=== PATIENT | male | born 1945 | race Two or more races ===

== ENCOUNTER 2023-10-14 11:24 | Inpatient (IN) | payer OTHER ==
[~2023-10-14] VITALS: Ht 165.1 cm; Wt 77.5 kg
[2023-10-14 12:27] LABS: Urine Bacteria NONE SEEN /hpf (None Seen); Urine Blood 1+ /uL (Negative); Urine Clarity HAZY (Clear); Urine Color Yellow (Yellow); Urine Protein, UAD 1+ (Negative); Urine Specific Gravity 1.024 (1.001-1.035); Urine Urobilinogen Normal (Negative); Urine WBC 229 /hpf (0 - 3); Urine WBC Clumps PRESENT /hpf (None Seen); Urine pH 5.5 (5.0-8.0)
[2023-10-14] MEDS: SODIUM CHLORIDE 0.9% 1,000 ML IV ONE (12:28)
[2023-10-14 12:45] LABS: Hematocrit 44.1 % (41.0-53.0); Hemoglobin 14.8 g/dL (13.5-17.5); Mean Corpuscular Hemoglobin 30.7 pg (28.0-32.0); Mean Corpuscular Hgb Conc. 33.5 g/dL (32.0-36.0); Mean Corpuscular Volume 91.8 fL (80.0-100.0); Red Cell Distribution Width 16.8 % (11.8-14.3); White Blood Cell 2.8 10^3/uL (4.4-10.8)
[2023-10-14 12:54] LABS: Basophils % (manual) 0 (0.0-2.0); Blast Cells 0; Metamyelocytes % 0; Myelocytes % 0; Promyelocytes % 0; Reactive Lymphocytes 0
[2023-10-14 13:03] LABS: Alanine Aminotransferase 28 U/L (7-40); Albumin 3.8 g/dL (3.2-4.8); Alkaline Phosphatase 102 U/L (46-116); Anion Gap 4 (5-15); Aspartate Aminotransferase 27 U/L (13-40); Blood Urea Nitrogen 29 mg/dL (9-23); Calcium 8.9 mg/dL (8.7-10.4); Carbon Dioxide 30 mmol/L (20-30); Chloride 99 mmol/L (98-107); Glucose 352 mg/dL (74-106); Magnesium 1.9 mg/dL (1.6-2.6); Potassium 4.1 mmol/L (3.5-5.1); Sodium 133 mmol/L (136-145)
[2023-10-14 13:04] LABS: Bilirubin, Total 0.7 mg/dL (0.2-1.0); Total Protein 5.3 g/dL (5.7-8.2)
[2023-10-14 13:11] LABS: INR 1.14 (0.9-1.15); Partial Thromboplastin Time 27.1 SEC (24.5-34.5); Prothrombin Time 11.9 sec (9.3-11.8)
[2023-10-14] MEDS: ENOXAPARIN SOD 100 MG/1 ML SYRINGE SC ONE (13:53)
[2023-10-14 14:10] LABS: Band Neutrophils % (manual) 2; Eosinophils % (manual) 5 (0-7); Lymphocytes % (manual) 51 (10.0-50.0); Monocytes % (manual) 35 (0-12); Platelet Estimate Adequate
[2023-10-14] MEDS: PIPERACILLIN-TAZO 4.5GM 100 ML IV ONE (15:34)
[2023-10-14] MEDS ORDERED: ACETAMINOPHEN 325 MG TAB PO PRN (16:00)
[2023-10-14] MEDS ORDERED: MORPHINE SULFATE 4 MG/ML SYR/VIAL IV PRN (16:00)
[2023-10-14] MEDS ORDERED: ASPirin 325 MG TAB PO SCH (16:00)
[2023-10-14] MEDS ORDERED: ONDANSETRON HCL 4 MG/2 ML VIAL IV PRN (16:00)
[2023-10-14] MEDS ORDERED: NITROGLYCERIN 0.4 MG SL TAB SL PRN (16:00)
[2023-10-14] MEDS: SODIUM CHLORIDE 0.9% 1,000 ML IV SCH (16:15)
[2023-10-14 17:01] LABS: INR 1.23 (0.9-1.15); Prothrombin Time 12.7 sec (9.3-11.8)
[2023-10-14 17:09] LABS: Folate (Folic Acid) 12.17 ng/mL (>5.38)
[2023-10-14 17:37] LABS: Amphetamine Screen, Urine Neg (NEGATIVE); Barbiturate Scree,Urine Neg (NEGATIVE); Benzodiazephine Screen, Urine Neg (NEGATIVE); Cannabinoid Screen, Urine Neg (NEGATIVE); Cocaine Screen, Urine Neg (NEGATIVE); Opiate Scree,Urine Neg (NEGATIVE); Phencyclidine Screen, Urine Neg (NEGATIVE)
[2023-10-14] MEDS: TAMSULOSIN HYDROCHLORIDE 0.4 MG CAP PO SCH (18:00)
[2023-10-14 19:14] VITALS: PULSE 78; RESP 18; O2SAT 96
[2023-10-14 19:30] VITALS: PULSE 99; RESP 23; O2SAT 97
[2023-10-14 21:56] VITALS: PULSE 93
[2023-10-14 22:32] VITALS: PULSE 90; RESP 18; O2SAT 95
[2023-10-14] MEDS: ATORVASTATIN 20 MG TAB PO SCH (22:50)
[2023-10-14] MEDS: METOPROLOL TARTRATE 25 MG TAB PO SCH (22:51)
[2023-10-14] MEDS: ENOXAPARIN SOD 80 MG/0.8ML SYRINGE SC SCH (22:52)
[2023-10-14 23:21] VITALS: BP 123/76; PULSE 90; RESP 18; TEMP 98.2; O2SAT 95
[2023-10-15] VITALS (7 sets, daily range): BP systolic 109–153; BP diastolic 64–77; PULSE 85–101; RESP 16–18; TEMP 97.8–98.6; O2SAT 93–96
[2023-10-15] MEDS ORDERED: METF-370 PO (03:38)
[2023-10-15] MEDS ORDERED: FINA5TAB4 PO (03:38)
[2023-10-15] MEDS ORDERED: GLIP5TAB12 PO (03:38)
[2023-10-15] MEDS ORDERED: FURO40TA4 PO (03:38)
[2023-10-15] MEDS ORDERED: LOVA40TA72 PO (03:38)
[2023-10-15] MEDS ORDERED: LOSA25TA15 PO (03:38)
[2023-10-15] MEDS ORDERED: DIGO125T11 PO (03:38)
[2023-10-15] MEDS ORDERED: TAMS0.4C36 PO (03:38)
[2023-10-15] MEDS ORDERED: WARF-111 PO (03:38)
[2023-10-15] MEDS ORDERED: CARV3.1240 PO (03:38)
[2023-10-15] MEDS ORDERED: PNEUMOCOCCAL VACC POLYS 25 MCG/0.5 ML VIAL IM ONE (03:45)
[2023-10-15 07:01] LABS: Triglycerides 180 mg/dL (< 150)
[2023-10-15 07:02] LABS: LDL Cholesterol 95 mg/dL (< 100)
[2023-10-15 07:03] LABS: Cholesterol 155 mg/dL (< 200); HDL Cholesterol 38 mg/dL (40-59)
[2023-10-15] MEDS: ASPirin 81 mg TAB PO SCH (11:11)
[2023-10-15] MEDS: DOCUSATE SOD 100 MG CAP PO SCH (11:12)
[2023-10-15] MEDS ORDERED: DEXTROSE (50%) 50ML SYRG IV PRN (13:00)
[2023-10-15] MEDS: cefTRIAXone 1GM/50ML D5W 50 ML IV ONE (14:00)
[2023-10-15] MEDS: ACCU-CHEK COMFORT CURVE STRIP VI SCH (17:26)
[2023-10-15] MEDS: InsuLIN REG 1unit/0.01ml Soln (100units/ml) SC SCH (17:33)
[2023-10-15] MEDS: WARFARIN SODIUM 1 MG TAB PO ONE (17:42)
[2023-10-15] MEDS: INSULIN LANTUS (GLARGINE) 1 /0.01ml (100units/ml) SC SCH (22:00)
[2023-10-16 05:12] VITALS: BP 119/68; PULSE 79; RESP 17; TEMP 97.6; O2SAT 98
[2023-10-16 08:00] VITALS: BP 130/68; PULSE 86; PULSE 92; RESP 16; TEMP 97.8; O2SAT 95
[2023-10-16] MEDS: cefTRIAXone 1GM/50ML D5W 50 ML IV SCH (09:10)
[2023-10-16 12:00] VITALS: BP 119/69; PULSE 89; RESP 16; TEMP 97.9; O2SAT 95
[2023-10-16 16:00] VITALS: BP 130/75; PULSE 91; RESP 16; TEMP 98.5; O2SAT 97
[2023-10-16 17:02] LABS: INR 1.14 (0.9-1.15); Prothrombin Time 11.9 sec (9.3-11.8)
[2023-10-16] MEDS: WARFARIN SODIUM 5 MG TAB PO ONE (18:52)
[2023-10-16 20:00] VITALS: PULSE 101; PULSE 92; RESP 18; O2SAT 97
[2023-10-16 22:00] VITALS: BP 145/81; PULSE 92; RESP 18; TEMP 97.6; O2SAT 97
[2023-10-17 05:17] VITALS: BP 121/65; PULSE 89; RESP 17; TEMP 97.7; O2SAT 98
[2023-10-17 06:36] LABS: INR 1.19 (0.9-1.15); Prothrombin Time 12.4 sec (9.3-11.8)
[2023-10-17 08:00] VITALS: PULSE 76; PULSE 82; RESP 14; O2SAT 98
[2023-10-17 09:00] VITALS: BP 128/68; PULSE 76; RESP 14; TEMP 98.6; O2SAT 96
[2023-10-17] MEDS ORDERED: CIPR-173 PO (10:34)
[2023-10-17] MEDS ORDERED: FLUC150T38 PO (10:34)
[2023-10-17] MEDS: FLUCONAZOLE 100 MG TAB PO ONE (10:56)
[2023-10-17 13:00] VITALS: BP 144/77; PULSE 69; RESP 12; TEMP 98.3; O2SAT 98
[2023-10-17 13:19] VITALS: BP 144/77; PULSE 69; RESP 12; TEMP 98.3; O2SAT 98
[2023-10-17] MEDS: WARFARIN SODIUM 5 MG TAB PO ONE (13:43)
[2023-10-18] MEDS ORDERED: FLUCONAZOLE 100 MG TAB PO SCH (10:00)
== END 2023-10-17 15:03 | disposition home or self-care (01) | DRG 637 ==
LOC: ER 11:24 → TELE 16:07 → TELE-EAST 21:38
PROVIDERS: ADMIT Nurse Practitioner Family; ATTEND Family Medicine
DX: E11.10 Type 2 diabetes mellitus with ketoacidosis without coma (principal); G93.41 Metabolic encephalopathy; N39.0 Urinary tract infection, site not specified; E86.0 Dehydration; R07.89 Other chest pain; N20.0 Calculus of kidney; N28.1 Cyst of kidney, acquired; E78.00 Pure hypercholesterolemia, unspecified; R22.2 Localized swelling, mass and lump, trunk; I11.9 Hypertensive heart disease without heart failure; D72.819 Decreased white blood cell count, unspecified; N40.0 Benign prostatic hyperplasia without lower urinary tract symptoms; B37.9 Candidiasis, unspecified; I25.10 Atherosclerotic heart disease of native coronary artery without angina pectoris; K57.90 Diverticulosis of intestine, part unspecified, without perforation or abscess without bleeding; Z95.3 Presence of xenogenic heart valve; Z79.899 Other long term (current) drug therapy; Z86.73 Personal history of transient ischemic attack (TIA), and cerebral infarction without residual deficits; Z79.01 Long term (current) use of anticoagulants; Z95.2 Presence of prosthetic heart valve
CPT/HCPCS: 36415; 70450; 71045; 74176; 80053; 80061; 80307; 80320; 81001; 82010; 82607; 82746; 82962; 83036; 83605; 83735; 83880; 84484; 85007; 85027; 85610; 85730; 87040; 87086; 87088; 93306; G0378; J1815; J2543

== ENCOUNTER 2023-11-22 18:11 | Inpatient (IN) | payer OTHER ==
[~2023-11-22] VITALS: Ht 167.6 cm; Wt 66.9 kg
[~2023-11-22 18:11] MED LIST: CARV3.1240 PO; CIPR-173 PO; DIGO125T11 PO; FINA5TAB4 PO; FLUC150T38 PO; FURO40TA4 PO; GLIP5TAB21 PO; LOSA-533 PO; LOVA40TA72 PO; METF-370 PO; TAMS0.4C36 PO; WARF-111 PO
[2023-11-22 18:47] LABS: Hematocrit 45.7 % (41.0-53.0); Mean Corpuscular Hemoglobin 29.2 pg (28.0-32.0); Mean Corpuscular Hgb Conc. 32.9 g/dL (32.0-36.0); Mean Corpuscular Volume 88.9 fL (80.0-100.0); Red Blood Cells 5.14 10^6/uL (4.5-5.90); Red Cell Distribution Width 15.6 % (11.8-14.3); White Blood Cell 2.1 10^3/uL (4.4-10.8)
[2023-11-22 18:51] LABS: Basophils % (manual) 0 (0.0-2.0); Blast Cells 0; Metamyelocytes % 0; Myelocytes % 0; Promyelocytes % 0; Reactive Lymphocytes 0
[2023-11-22] MEDS ORDERED: cefTRIAXone SOD 1,000 MG VL IM ONE (19:00)
[2023-11-22 19:10] LABS: INR 1.73 (0.9-1.15); Partial Thromboplastin Time 25.9 SEC (24.5-34.5); Prothrombin Time 17.5 sec (9.3-11.8)
[2023-11-22 19:30] VITALS: PULSE 150; RESP 26; O2SAT 93
[2023-11-22 19:34] LABS: Band Neutrophils % (manual) 9; Lymphocytes % (manual) 21 (10.0-50.0); Monocytes % (manual) 13 (0-12)
[2023-11-22 19:35] LABS: Anisocytosis Slight; Eosinophils % (manual) 1 (0-7); Platelet Estimate Adequate
[2023-11-22] MEDS: dilTIAZem 25 MG/5 ML VIAL IV ONE (19:37)
[2023-11-22] MEDS: InsuLIN REG 1unit/0.01ml Soln (100units/ml) IV ONE (19:42)
[2023-11-22] MEDS: SODIUM CHLORIDE 0.9% 2,000 ML IV ONE (19:46)
[2023-11-22] MEDS: SODIUM CHLORIDE 0.9% 1,000 ML IV ONE (19:46)
[2023-11-22] MEDS: cefTRIAXone 1GM/50ML D5W 50 ML IV ONE (19:52)
[2023-11-22 20:05] LABS: Lactic Acid w/Reflex 2.5 mmol/L (0.4-2.0)
[2023-11-22 20:12] LABS: Alanine Aminotransferase 20 U/L (7-40); Albumin 2.8 g/dL (3.2-4.8); Alkaline Phosphatase 82 U/L (46-116); Anion Gap 10 (5-15); Aspartate Aminotransferase 23 U/L (13-40); BUN/Creatinine Ratio 14.8 (10.0-20.0); Bilirubin, Total 1.1 mg/dL (0.2-1.0); Blood Urea Nitrogen 17 mg/dL (9-23); Calcium 8.5 mg/dL (8.5-10.1); Carbon Dioxide 25 mmol/L (20-30); Chloride 96 mmol/L (98-107); Potassium 3.4 mmol/L (3.5-5.1); Sodium 131 mmol/L (136-145); Total Protein 4.5 g/dL (5.7-8.2)
[2023-11-22 21:03] LABS: Glucose 548 mg/dL (74-106)
[2023-11-22] MEDS: levoFLOXacin 500MG 100 ML IV ONE (21:04)
[2023-11-22] MEDS ORDERED: ACETAMINOPHEN 325 MG TAB PO PRN (21:15)
[2023-11-22] MEDS ORDERED: MORPHINE SULFATE INJ 2 MG/ml SYRG IV PRN (21:15)
[2023-11-22] MEDS ORDERED: NITROGLYCERIN 0.4 MG SL TAB SL PRN (21:15)
[2023-11-22] MEDS ORDERED: ONDANSETRON HCL 4 MG/2 ML VIAL IV PRN (21:15)
[2023-11-22 21:50] LABS: Magnesium 1.7 mg/dL (1.6-2.6)
[2023-11-22 22:06] LABS: Urine Bacteria FEW /hpf (None Seen); Urine Blood TRACE /uL (Negative); Urine Budding Yeast LOADED /hpf (None Seen); Urine Clarity HAZY (Clear); Urine Color Colorless (Yellow); Urine Mucus FEW (None Seen); Urine Protein, UAD Negative (Negative); Urine Specific Gravity 1.006 (1.001-1.035); Urine Urobilinogen Normal (Negative); Urine WBC 60 /hpf (0 - 3); Urine WBC Clumps PRESENT /hpf (None Seen); Urine pH 5.5 (5.0-8.0)
[2023-11-22] MEDS: CARVEDILOL 12.5 MG TAB PO SCH (22:13)
[2023-11-22] MEDS: ATORVASTATIN 20 MG TAB PO SCH (22:13)
[2023-11-22] MEDS: SODIUM CHLORIDE 0.9% 500 ML IV ONE (22:45)
[2023-11-22] MEDS: IOHEXOL 350 MG/ML 100ML IJ ONE (23:20)
[2023-11-23] LABS: INR 1.84 (0.9-1.15); Partial Thromboplastin Time 38.4 SEC (24.5-34.5); Prothrombin Time 18.6 sec (9.3-11.8)
[2023-11-23] MEDS: ACCU-CHEK COMFORT CURVE STRIP VI SCH (00:18)
[2023-11-23] MEDS: InsuLIN REG 1unit/0.01ml Soln (100units/ml) SC SCH (00:29)
[2023-11-23] MEDS: HEPARIN SODIUM (PORCINE) 5000 UNITS/ML 1ML VIAL IV ONE (00:32)
[2023-11-23] MEDS: HEPARIN DRIP/D5W 100UNITS/ML 250 ML IV SCH ×2 (00:40→16:20)
[2023-11-23] MEDS: cefTRIAXone 1GM/50ML D5W 50 ML IV SCH (01:55)
[2023-11-23 05:14] LABS: Hematocrit 37.9 % (41.0-53.0); Hemoglobin 12.8 g/dL (13.5-17.5); Mean Corpuscular Hemoglobin 29.7 pg (28.0-32.0); Mean Corpuscular Hgb Conc. 33.9 g/dL (32.0-36.0); Mean Corpuscular Volume 87.6 fL (80.0-100.0); Red Blood Cells 4.32 10^6/uL (4.5-5.90); Red Cell Distribution Width 15.2 % (11.8-14.3); White Blood Cell 7.8 10^3/uL (4.4-10.8)
[2023-11-23 05:30] LABS: Basophils % (manual) 0 (0.0-2.0); Blast Cells 0; Eosinophils % (manual) 0 (0-7); Metamyelocytes % 0; Myelocytes % 0; Promyelocytes % 0; Reactive Lymphocytes 0
[2023-11-23 05:34] LABS: Alanine Aminotransferase 20 U/L (7-40); Albumin 2.4 g/dL (3.2-4.8); Alkaline Phosphatase 63 U/L (46-116); Anion Gap 8 (5-15); Aspartate Aminotransferase 21 U/L (13-40); BUN/Creatinine Ratio 16.7 (10.0-20.0); Blood Urea Nitrogen 17 mg/dL (9-23); Carbon Dioxide 27 mmol/L (20-30); Chloride 102 mmol/L (98-107); Potassium 2.9 mmol/L (3.5-5.1); Sodium 137 mmol/L (136-145)
[2023-11-23 05:35] LABS: Bilirubin, Total 0.5 mg/dL (0.2-1.0); Total Protein 3.9 g/dL (5.7-8.2)
[2023-11-23 05:52] LABS: Glucose 207 mg/dL (74-106)
[2023-11-23 07:44] LABS: INR 1.9 (0.9-1.15); Prothrombin Time 19.1 sec (9.3-11.8)
[2023-11-23 07:54] LABS: Partial Thromboplastin Time 87.1 SEC (24.5-34.5)
[2023-11-23 08:46] LABS: Band Neutrophils % (manual) 2; Lymphocytes % (manual) 31 (10.0-50.0); Monocytes % (manual) 13 (0-12)
[2023-11-23 08:47] LABS: Platelet Estimate Adequate; RBC Morphology Normal
[2023-11-23] MEDS ORDERED: levoFLOXacin 500MG 100 ML IV SCH (10:00)
[2023-11-23] MEDS ORDERED: ENOXAPARIN SOD 40 MG/0.4 ML SYRINGE SC SCH (10:00)
[2023-11-23] MEDS: LOSARTAN POTASSIUM 25 MG TAB PO SCH (10:48)
[2023-11-23] MEDS: DIGOXIN 0.125 MG TAB PO SCH (10:48)
[2023-11-23] MEDS: FUROSEMIDE 20 MG TAB PO SCH (10:49)
[2023-11-23] MEDS: SODIUM CHLORIDE 0.9% 250 ML IV ONE ×2 (13:38→14:00)
[2023-11-23] MEDS: POTASSIUM CHL 20MEQ/100ML 100 ML IV SCH (14:00)
[2023-11-23] MEDS: NOREPINEPHRINE 8 MG/250ML KIT 250 ML IV SCH (14:44)
[2023-11-23 14:46] LABS: INR 1.99 (0.9-1.15)
[2023-11-23 14:56] LABS: Partial Thromboplastin Time 119.3 SEC (24.5-34.5)
[2023-11-23] MEDS: cefTRIAXone 1GM/50ML D5W 50 ML IV ONE (15:15)
[2023-11-23] MEDS: TAMSULOSIN HYDROCHLORIDE 0.4 MG CAP PO SCH (18:25)
[2023-11-23 22:44] LABS: INR 1.69 (0.9-1.15); Partial Thromboplastin Time 49.3 SEC (24.5-34.5); Prothrombin Time 17.1 sec (9.3-11.8)
[2023-11-23 23:00] VITALS: PULSE 80; RESP 26; O2SAT 94
[2023-11-24 06:01] LABS: Hematocrit 35.8 % (41.0-53.0); Hemoglobin 12.2 g/dL (13.5-17.5); Mean Corpuscular Hemoglobin 29.7 pg (28.0-32.0); Mean Corpuscular Volume 87.3 fL (80.0-100.0); Red Cell Distribution Width 15.4 % (11.8-14.3); White Blood Cell 8.9 10^3/uL (4.4-10.8)
[2023-11-24 06:05] LABS: Basophils % (manual) 0 (0.0-2.0); Blast Cells 0; Metamyelocytes % 0; Myelocytes % 0; Promyelocytes % 0; Reactive Lymphocytes 0
[2023-11-24 06:10] LABS: Alanine Aminotransferase 19 U/L (7-40); Albumin 2.3 g/dL (3.2-4.8); Alkaline Phosphatase 63 U/L (46-116); Anion Gap 6 (5-15); Aspartate Aminotransferase 24 U/L (13-40); BUN/Creatinine Ratio 16.5 (10.0-20.0); Bilirubin, Total 0.5 mg/dL (0.2-1.0); Blood Urea Nitrogen 17 mg/dL (9-23); Calcium 8.2 mg/dL (8.7-10.4); Carbon Dioxide 26 mmol/L (20-30); Chloride 101 mmol/L (98-107); Glucose 183 mg/dL (74-106); Sodium 133 mmol/L (136-145); Total Protein 3.7 g/dL (5.7-8.2)
[2023-11-24 06:34] LABS: Band Neutrophils % (manual) 17; Eosinophils % (manual) 3 (0-7); Lymphocytes % (manual) 22 (10.0-50.0); Monocytes % (manual) 19 (0-12); Platelet Estimate Adequate
[2023-11-24 07:30] VITALS: PULSE 86; RESP 25; O2SAT 97
[2023-11-24 07:46] LABS: INR 1.52 (0.9-1.15); Partial Thromboplastin Time 67.3 SEC (24.5-34.5); Prothrombin Time 15.5 sec (9.3-11.8)
[2023-11-24] MEDS: HEPARIN DRIP/D5W 100UNITS/ML 250 ML IV SCH (08:30)
[2023-11-24] MEDS: cefTRIAXone 1GM/50ML D5W 50 ML IV SCH (08:50)
[2023-11-24 12:18] LABS: INR 1.45 (0.9-1.15); Partial Thromboplastin Time 64.4 SEC (24.5-34.5); Prothrombin Time 14.9 sec (9.3-11.8)
[2023-11-24] MEDS: POTASSIUM CHL 20MEQ/100ML 100 ML IV SCH (15:14)
[2023-11-24] MEDS ORDERED: CARV12.544 PO (16:30)
[2023-11-24] MEDS ORDERED: PANT40TA2 PO (16:33)
[2023-11-24] MEDS ORDERED: AMLO1TAB22 PO (16:33)
[2023-11-24] MEDS ORDERED: NALO4SPR3 NAS (16:33)
[2023-11-24] MEDS ORDERED: TRAM50TA2 PO (16:33)
[2023-11-24] MEDS ORDERED: POTA-215 PO (16:33)
[2023-11-24 18:48] LABS: INR 1.37 (0.9-1.15); Partial Thromboplastin Time 62.7 SEC (24.5-34.5); Prothrombin Time 14.1 sec (9.3-11.8)
[2023-11-24 19:30] VITALS: PULSE 78; RESP 27; O2SAT 96
[2023-11-24] MEDS: INSULIN LANTUS (GLARGINE) 1 /0.01ml (100units/ml) SC SCH (22:57)
[2023-11-25 00:47] LABS: INR 1.37 (0.9-1.15); Partial Thromboplastin Time 38.5 SEC (24.5-34.5); Prothrombin Time 14.1 sec (9.3-11.8)
[2023-11-25 05:21] LABS: Basophils # (auto) 0 10 ^3/uL (0-0.2); Basophils % (auto) 0.6 % (0.0-2.0); Chloride 103 mmol/L (98-107); Eosinophils # (auto) 0.1 10 ^3/uL (0-0.8); Eosinophils % (auto) 1.7 % (0.0-7.0); Hematocrit 34.6 % (41.0-53.0); Hemoglobin 11.5 g/dL (13.5-17.5); Lymphocytes # (auto) 1.6 10 ^3/uL (0.4-5.4); Lymphocytes % (auto) 22.8 % (10.0-50.0); Mean Corpuscular Hemoglobin 29.2 pg (28.0-32.0); Mean Corpuscular Hgb Conc. 33.2 g/dL (32.0-36.0); Mean Corpuscular Volume 87.9 fL (80.0-100.0); Monocytes # (auto) 0.7 10 ^3/uL (0-1.3); Monocytes % (auto) 10.2 % (0.0-12.0); Neutrophils # (auto) 4.6 10 ^3/uL (1.6-8.6); Neutrophils % (auto) 64.7 % (37.0-80.0); Nucleated Red Blood Cells % 0.1 %; Potassium 3.4 mmol/L (3.5-5.1); Red Blood Cells 3.94 10^6/uL (4.5-5.90); Red Cell Distribution Width 15.7 % (11.8-14.3); Sodium 135 mmol/L (136-145); White Blood Cell 7.1 10^3/uL (4.4-10.8)
[2023-11-25 05:22] LABS: Anion Gap 5 (5-15); Calcium 8.1 mg/dL (8.5-10.1); Carbon Dioxide 27 mmol/L (20-30)
[2023-11-25 05:27] LABS: BUN/Creatinine Ratio 21.3 (10.0-20.0); Blood Urea Nitrogen 20 mg/dL (9-23); Glucose 116 mg/dL (74-106)
[2023-11-25 05:44] LABS: INR 1.44 (0.9-1.15); Prothrombin Time 14.8 sec (9.3-11.8)
[2023-11-25 07:30] VITALS: PULSE 94; RESP 26; O2SAT 96
[2023-11-25 10:57] LABS: INR 1.45 (0.9-1.15); Prothrombin Time 14.9 sec (9.3-11.8)
[2023-11-25 11:04] LABS: Partial Thromboplastin Time 82.8 SEC (24.5-34.5)
[2023-11-25] MEDS: HEPARIN DRIP/D5W 100UNITS/ML 250 ML IV SCH ×2 (11:05→19:37)
[2023-11-25] MEDS: POTASSIUM CHL 20MEQ/100ML 100 ML IV ONE (15:56)
[2023-11-25 17:21] LABS: INR 1.34 (0.9-1.15); Partial Thromboplastin Time 49.5 SEC (24.5-34.5); Prothrombin Time 13.8 sec (9.3-11.8)
[2023-11-25 19:45] VITALS: PULSE 93; RESP 29; O2SAT 96
[2023-11-25] MEDS: LINEZOLID 600MG/300ML 300 ML IV SCH (22:20)
[2023-11-26 00:54] LABS: INR 1.44 (0.9-1.15); Partial Thromboplastin Time 45.8 SEC (24.5-34.5); Prothrombin Time 14.8 sec (9.3-11.8)
[2023-11-26 07:26] LABS: Basophils # (auto) 0.1 10 ^3/uL (0-0.2); Basophils % (auto) 0.5 % (0.0-2.0); Eosinophils # (auto) 0.2 10 ^3/uL (0-0.8); Eosinophils % (auto) 1.5 % (0.0-7.0); Hematocrit 42.1 % (41.0-53.0); Hemoglobin 13.9 g/dL (13.5-17.5); Lymphocytes # (auto) 2.2 10 ^3/uL (0.4-5.4); Lymphocytes % (auto) 18.6 % (10.0-50.0); Mean Corpuscular Hemoglobin 29.2 pg (28.0-32.0); Mean Corpuscular Hgb Conc. 33.1 g/dL (32.0-36.0); Mean Corpuscular Volume 88.2 fL (80.0-100.0); Monocytes # (auto) 1.2 10 ^3/uL (0-1.3); Monocytes % (auto) 9.7 % (0.0-12.0); Neutrophils # (auto) 8.3 10 ^3/uL (1.6-8.6); Neutrophils % (auto) 69.7 % (37.0-80.0); Nucleated Red Blood Cells % 0.1 %; Red Blood Cells 4.78 10^6/uL (4.5-5.90); Red Cell Distribution Width 15.6 % (11.8-14.3); White Blood Cell 11.9 10^3/uL (4.4-10.8)
[2023-11-26 07:37] LABS: Anion Gap 3 (5-15); Carbon Dioxide 29 mmol/L (20-30); Chloride 101 mmol/L (98-107); Potassium 3.7 mmol/L (3.5-5.1); Sodium 133 mmol/L (136-145)
[2023-11-26 07:38] LABS: Calcium 8.5 mg/dL (8.5-10.1)
[2023-11-26 07:43] LABS: BUN/Creatinine Ratio 21.6 (10.0-20.0); Blood Urea Nitrogen 19 mg/dL (9-23); Glucose 135 mg/dL (74-106)
[2023-11-26 08:09] LABS: INR 1.39 (0.9-1.15); Prothrombin Time 14.3 sec (9.3-11.8)
[2023-11-26 08:15] LABS: Partial Thromboplastin Time 103.9 SEC (24.5-34.5)
[2023-11-26] MEDS ORDERED: HEPARIN DRIP/D5W 100UNITS/ML 250 ML IV SCH (09:00)
[2023-11-26] MEDS: LIDOCAINE 1% (LOCAL ANESTH.) PF 5ml SDV ID ONE (09:45)
[2023-11-26] MEDS: HEPARIN DRIP/D5W 100UNITS/ML 250 ML IV SCH ×2 (10:10→19:30)
[2023-11-26] MEDS: SODIUM CHLOR 0.9% PF (SALINE LOCK) 10ML VIAL/SYR IV SCH (10:54)
[2023-11-26 18:24] LABS: INR 1.41 (0.9-1.15); Prothrombin Time 14.5 sec (9.3-11.8)
[2023-11-26 18:27] LABS: Partial Thromboplastin Time > 139.0 SEC (24.5-34.5)
[2023-11-26 19:25] VITALS: PULSE 79; RESP 20; O2SAT 98
[2023-11-27] VITALS (26 sets, daily range): BP systolic 87–129; BP diastolic 50–65; PULSE 69–101; RESP 16–30; TEMP 98.8–98.9; O2SAT 91–98
[2023-11-27 07:03] LABS: Basophils # (auto) 0.1 10 ^3/uL (0-0.2); Basophils % (auto) 0.6 % (0.0-2.0); Eosinophils # (auto) 0.2 10 ^3/uL (0-0.8); Eosinophils % (auto) 1.7 % (0.0-7.0); Hematocrit 37.6 % (41.0-53.0); Hemoglobin 12.1 g/dL (13.5-17.5); Lymphocytes # (auto) 2.2 10 ^3/uL (0.4-5.4); Lymphocytes % (auto) 18.6 % (10.0-50.0); Mean Corpuscular Hgb Conc. 32.1 g/dL (32.0-36.0); Mean Corpuscular Volume 87.1 fL (80.0-100.0); Monocytes # (auto) 1.5 10 ^3/uL (0-1.3); Monocytes % (auto) 12.2 % (0.0-12.0); Neutrophils # (auto) 7.9 10 ^3/uL (1.6-8.6); Neutrophils % (auto) 66.9 % (37.0-80.0); Nucleated Red Blood Cells % 0.1 %; Red Blood Cells 4.31 10^6/uL (4.5-5.90); Red Cell Distribution Width 15.4 % (11.8-14.3); White Blood Cell 11.8 10^3/uL (4.4-10.8)
[2023-11-27 07:26] LABS: Chloride 99 mmol/L (98-107); Potassium 3.4 mmol/L (3.5-5.1); Sodium 132 mmol/L (136-145)
[2023-11-27 07:27] LABS: Anion Gap 4 (5-15); Carbon Dioxide 29 mmol/L (20-30)
[2023-11-27 07:28] LABS: Calcium 8.2 mg/dL (8.5-10.1)
[2023-11-27 07:32] LABS: BUN/Creatinine Ratio 20.2 (10.0-20.0); Blood Urea Nitrogen 19 mg/dL (9-23); Glucose 95 mg/dL (74-106)
[2023-11-27 07:57] LABS: INR 1.31 (0.9-1.15); Partial Thromboplastin Time 52.4 SEC (24.5-34.5); Prothrombin Time 13.5 sec (9.3-11.8)
[2023-11-27 14:03] LABS: INR 1.31 (0.9-1.15); Partial Thromboplastin Time 35.5 SEC (24.5-34.5); Prothrombin Time 13.5 sec (9.3-11.8)
[2023-11-27] MEDS: HEPARIN DRIP/D5W 100UNITS/ML 250 ML IV SCH (14:53)
[2023-11-27 21:17] LABS: Urine Bacteria NONE SEEN /hpf (None Seen); Urine Blood TRACE /uL (Negative); Urine Budding Yeast LOADED /hpf (None Seen); Urine Clarity CLOUDY (Clear); Urine Color Colorless (Yellow); Urine Protein, UAD Negative (Negative); Urine Specific Gravity 1.013 (1.001-1.035); Urine Urobilinogen Normal (Negative); Urine WBC 265 /hpf (0 - 3); Urine WBC Clumps PRESENT /hpf (None Seen)
[2023-11-27 21:51] LABS: INR 1.34 (0.9-1.15); Partial Thromboplastin Time 46.2 SEC (24.5-34.5); Prothrombin Time 13.8 sec (9.3-11.8)
[2023-11-28] VITALS (92 sets, daily range): BP systolic 77–134; BP diastolic 33–74; PULSE 62–94; RESP 12–33; TEMP 97.8–98.8; O2SAT 67–100
[2023-11-28 04:23] LABS: INR 1.31 (0.9-1.15); Prothrombin Time 13.5 sec (9.3-11.8)
[2023-11-28 04:24] LABS: Partial Thromboplastin Time 70.1 SEC (24.5-34.5)
[2023-11-28] MEDS: NOREPINEPHRINE 8 MG/250ML KIT 250 ML IV SCH (09:15)
[2023-11-28] MEDS: POTASSIUM CHL 20 Meq TABLET PO ONE (11:17)
[2023-11-28 13:17] LABS: INR 1.26 (0.9-1.15); Prothrombin Time 13.3 sec (9.3-11.8)
[2023-11-28 13:20] LABS: Partial Thromboplastin Time 96.2 SEC (24.5-34.5)
[2023-11-28] MEDS: HEPARIN DRIP/D5W 100UNITS/ML 250 ML IV SCH (15:42)
[2023-11-28 22:35] LABS: INR 1.3 (0.9-1.15); Partial Thromboplastin Time 49.8 SEC (24.5-34.5); Prothrombin Time 13.4 sec (9.3-11.8)
[2023-11-29] VITALS (98 sets, daily range): BP systolic 88–137; BP diastolic 46–80; PULSE 60–107; RESP 8–29; TEMP 97.8–98.7; O2SAT 83–100
[2023-11-29 04:00] LABS: Basophils # (auto) 0.1 10 ^3/uL (0-0.2); Basophils % (auto) 0.8 % (0.0-2.0); Eosinophils # (auto) 0.2 10 ^3/uL (0-0.8); Eosinophils % (auto) 1.5 % (0.0-7.0); Hematocrit 37.4 % (41.0-53.0); Hemoglobin 12.3 g/dL (13.5-17.5); Lymphocytes # (auto) 3.6 10 ^3/uL (0.4-5.4); Lymphocytes % (auto) 27.3 % (10.0-50.0); Mean Corpuscular Hemoglobin 28.5 pg (28.0-32.0); Mean Corpuscular Hgb Conc. 32.8 g/dL (32.0-36.0); Mean Corpuscular Volume 86.7 fL (80.0-100.0); Monocytes # (auto) 1.7 10 ^3/uL (0-1.3); Monocytes % (auto) 12.8 % (0.0-12.0); Neutrophils # (auto) 7.6 10 ^3/uL (1.6-8.6); Neutrophils % (auto) 57.6 % (37.0-80.0); Nucleated Red Blood Cells % 0.1 %; Red Blood Cells 4.32 10^6/uL (4.5-5.90); Red Cell Distribution Width 15.8 % (11.8-14.3); White Blood Cell 13.3 10^3/uL (4.4-10.8)
[2023-11-29 04:13] LABS: Chloride 98 mmol/L (98-107); Potassium 3.7 mmol/L (3.5-5.1); Sodium 133 mmol/L (136-145)
[2023-11-29 04:14] LABS: Anion Gap 5 (5-15); Calcium 8.2 mg/dL (8.7-10.4); Carbon Dioxide 30 mmol/L (20-30)
[2023-11-29 04:15] LABS: INR 1.36 (0.9-1.15); Partial Thromboplastin Time 59.2 SEC (24.5-34.5)
[2023-11-29 04:19] LABS: BUN/Creatinine Ratio 21.8 (10.0-20.0); Blood Urea Nitrogen 22 mg/dL (9-23); Glucose 62 mg/dL (74-106)
[2023-11-29] MEDS: DAPTOmycin 500 MG in SODIUM CHL 0.9% 50 ML IV SCH (10:34)
[2023-11-29 10:44] LABS: INR 1.27 (0.9-1.15); Prothrombin Time 13.1 sec (9.3-11.8)
[2023-11-29 10:56] LABS: Partial Thromboplastin Time 89.3 SEC (24.5-34.5)
[2023-11-29 17:46] LABS: INR 1.24 (0.9-1.15); Partial Thromboplastin Time 34.1 SEC (24.5-34.5); Prothrombin Time 12.8 sec (9.3-11.8)
[2023-11-29] MEDS: MORPHINE SULFATE INJ 2 MG/ml SYRG IV PRN (18:40)
[2023-11-29] MEDS: APIXABAN 5 MG TAB PO SCH (22:02)
[2023-11-30] VITALS (46 sets, daily range): BP systolic 101–139; BP diastolic 51–89; PULSE 71–96; RESP 10–22; TEMP 97.5–98.1; O2SAT 95–100
[2023-11-30 04:16] LABS: Basophils # (auto) 0.1 10 ^3/uL (0-0.2); Basophils % (auto) 0.8 % (0.0-2.0); Eosinophils # (auto) 0.1 10 ^3/uL (0-0.8); Eosinophils % (auto) 1.3 % (0.0-7.0); Hematocrit 34.4 % (41.0-53.0); Hemoglobin 11.6 g/dL (13.5-17.5); Lymphocytes # (auto) 3.5 10 ^3/uL (0.4-5.4); Lymphocytes % (auto) 32.5 % (10.0-50.0); Mean Corpuscular Hemoglobin 29.3 pg (28.0-32.0); Mean Corpuscular Hgb Conc. 33.6 g/dL (32.0-36.0); Mean Corpuscular Volume 87.2 fL (80.0-100.0); Monocytes # (auto) 1.1 10 ^3/uL (0-1.3); Monocytes % (auto) 10.6 % (0.0-12.0); Neutrophils # (auto) 5.8 10 ^3/uL (1.6-8.6); Neutrophils % (auto) 54.8 % (37.0-80.0); Nucleated Red Blood Cells % 0.2 %; Red Blood Cells 3.94 10^6/uL (4.5-5.90); Red Cell Distribution Width 15.6 % (11.8-14.3); White Blood Cell 10.6 10^3/uL (4.4-10.8)
[2023-11-30 04:26] LABS: Chloride 100 mmol/L (98-107); Potassium 3.1 mmol/L (3.5-5.1); Sodium 139 mmol/L (136-145)
[2023-11-30 04:27] LABS: Anion Gap 7 (5-15); Calcium 8.3 mg/dL (8.7-10.4); Carbon Dioxide 32 mmol/L (20-30)
[2023-11-30 04:32] LABS: BUN/Creatinine Ratio 16.8 (10.0-20.0); Blood Urea Nitrogen 24 mg/dL (9-23); Glucose 100 mg/dL (74-106)
[2023-11-30] MEDS: POTASSIUM CHL 20MEQ/100ML 100 ML IV SCH (10:59)
[2023-12-01] VITALS (8 sets, daily range): BP systolic 102–130; BP diastolic 45–79; PULSE 52–98; RESP 16–19; TEMP 97.7–98.3; O2SAT 93–99
[2023-12-01 05:51] LABS: Basophils # (auto) 0.1 10 ^3/uL (0-0.2); Basophils % (auto) 0.7 % (0.0-2.0); Eosinophils # (auto) 0.1 10 ^3/uL (0-0.8); Eosinophils % (auto) 0.5 % (0.0-7.0); Hematocrit 36.5 % (41.0-53.0); Hemoglobin 12.2 g/dL (13.5-17.5); Lymphocytes # (auto) 1.9 10 ^3/uL (0.4-5.4); Lymphocytes % (auto) 17.5 % (10.0-50.0); Mean Corpuscular Hemoglobin 29.2 pg (28.0-32.0); Mean Corpuscular Hgb Conc. 33.4 g/dL (32.0-36.0); Mean Corpuscular Volume 87.5 fL (80.0-100.0); Monocytes # (auto) 0.9 10 ^3/uL (0-1.3); Monocytes % (auto) 8.5 % (0.0-12.0); Neutrophils % (auto) 72.8 % (37.0-80.0); Red Blood Cells 4.17 10^6/uL (4.5-5.90); Red Cell Distribution Width 15.6 % (11.8-14.3)
[2023-12-01 06:05] LABS: Anion Gap 3 (5-15); Carbon Dioxide 31 mmol/L (20-30); Chloride 100 mmol/L (98-107); Potassium 4.4 mmol/L (3.5-5.1)
[2023-12-01 06:06] LABS: Calcium 8.5 mg/dL (8.5-10.1)
[2023-12-01 06:11] LABS: BUN/Creatinine Ratio 27.6 (10.0-20.0); Blood Urea Nitrogen 24 mg/dL (9-23); Glucose 97 mg/dL (74-106); Sodium 134 mmol/L (136-145)
[2023-12-02] VITALS (13 sets, daily range): BP systolic 76–121; BP diastolic 48–74; PULSE 60–94; RESP 12–19; TEMP 97.7–98.7; O2SAT 93–100
[2023-12-02 06:37] LABS: Basophils % (auto) 1.2 % (0.0-2.0); Eosinophils % (auto) 1.4 % (0.0-7.0); Lymphocytes % (auto) 24.6 % (10.0-50.0); Monocytes % (auto) 9.6 % (0.0-12.0); Neutrophils % (auto) 63.2 % (37.0-80.0); Nucleated Red Blood Cells % 0.3 %; White Blood Cell 10.5 10^3/uL (4.4-10.8)
[2023-12-02 06:38] LABS: Basophils # (auto) 0.1 10 ^3/uL (0-0.2); Eosinophils # (auto) 0.1 10 ^3/uL (0-0.8); Hematocrit 35.4 % (41.0-53.0); Hemoglobin 11.8 g/dL (13.5-17.5); Lymphocytes # (auto) 2.6 10 ^3/uL (0.4-5.4); Mean Corpuscular Hemoglobin 29.2 pg (28.0-32.0); Mean Corpuscular Hgb Conc. 33.5 g/dL (32.0-36.0); Mean Corpuscular Volume 87.4 fL (80.0-100.0); Neutrophils # (auto) 6.6 10 ^3/uL (1.6-8.6); Red Blood Cells 4.05 10^6/uL (4.5-5.90); Red Cell Distribution Width 15.4 % (11.8-14.3)
[2023-12-02 06:40] LABS: Chloride 100 mmol/L (98-107); Potassium 4.2 mmol/L (3.5-5.1); Sodium 136 mmol/L (136-145)
[2023-12-02 06:41] LABS: Anion Gap 4 (5-15); Calcium 8.4 mg/dL (8.5-10.1); Carbon Dioxide 32 mmol/L (20-30)
[2023-12-02 06:46] LABS: BUN/Creatinine Ratio 28.6 (10.0-20.0); Blood Urea Nitrogen 24 mg/dL (9-23); Glucose 102 mg/dL (74-106)
[2023-12-02] MEDS: diphenhdrAMINE HCL 50 MG/1 ML VL ONE (13:44)
[2023-12-02] MEDS: fentaNYL CITRATE 100 MCG/2 ML VL ONE (13:44)
[2023-12-02] MEDS: MIDAZOLAM HCL 2MG/2ML 2ml VIAL (1mg/ml) ONE (13:44)
[2023-12-02] MEDS: ONDANSETRON HCL 4 MG/2 ML VIAL ONE (13:44)
[2023-12-02] MEDS: LIDOCAINE VISCOUS 2% 15ML UD ONE (14:43)
[2023-12-02] MEDS: ONDANSETRON HCL 4 MG/2 ML VIAL IV ONE (14:45)
[2023-12-02] MEDS: LIDOCAINE VISCOUS 2% 15ML UD PO ONE (14:45)
[2023-12-02] MEDS: diphenhdrAMINE HCL 50 MG/1 ML VL IV ONE (14:45)
[2023-12-02] MEDS: MIDAZOLAM HCL 2MG/2ML 2ml VIAL (1mg/ml) IV ONE (14:45)
[2023-12-02] MEDS: fentaNYL CITRATE 100 MCG/2 ML VL IV ONE (14:45)
[2023-12-02] MEDS: cefTRIAXone 2GM/50ML D5W 50 ML IV ONE (18:16)
[2023-12-02] MEDS: AMPICILLIN SOD 2GM INJ 2 GM in SODIUM CHL 0.9% 100 ML IV SCH (18:17)
[2023-12-02 19:49] LABS: INR 1.41 (0.9-1.15); Partial Thromboplastin Time 42.9 SEC (24.5-34.5); Prothrombin Time 14.5 sec (9.3-11.8)
[2023-12-02] MEDS: HEPARIN DRIP/D5W 100UNITS/ML 250 ML IV SCH (21:24)
[2023-12-02] MEDS: WARFARIN SODIUM 2.5 MG TAB PO ONE (21:35)
[2023-12-03] VITALS (7 sets, daily range): BP systolic 94–135; BP diastolic 45–71; PULSE 59–82; RESP 12–19; TEMP 97.3–98.3; O2SAT 96–100
[2023-12-03 04:11] LABS: Chloride 101 mmol/L (98-107); Sodium 136 mmol/L (136-145)
[2023-12-03 04:12] LABS: Anion Gap 4 (5-15); Carbon Dioxide 31 mmol/L (20-30)
[2023-12-03 04:13] LABS: Basophils # (auto) 0.1 10 ^3/uL (0-0.2); Basophils % (auto) 0.9 % (0.0-2.0); Calcium 8.6 mg/dL (8.7-10.4); Eosinophils # (auto) 0.2 10 ^3/uL (0-0.8); Eosinophils % (auto) 1.6 % (0.0-7.0); Hematocrit 34.8 % (41.0-53.0); Hemoglobin 11.8 g/dL (13.5-17.5); Lymphocytes # (auto) 3.2 10 ^3/uL (0.4-5.4); Lymphocytes % (auto) 22.6 % (10.0-50.0); Mean Corpuscular Hemoglobin 29.8 pg (28.0-32.0); Mean Corpuscular Hgb Conc. 33.8 g/dL (32.0-36.0); Monocytes # (auto) 1.6 10 ^3/uL (0-1.3); Monocytes % (auto) 11.3 % (0.0-12.0); Neutrophils # (auto) 9.1 10 ^3/uL (1.6-8.6); Neutrophils % (auto) 63.6 % (37.0-80.0); Red Blood Cells 3.95 10^6/uL (4.5-5.90); Red Cell Distribution Width 15.8 % (11.8-14.3); White Blood Cell 14.2 10^3/uL (4.4-10.8)
[2023-12-03 04:17] LABS: BUN/Creatinine Ratio 26.7 (10.0-20.0); Blood Urea Nitrogen 24 mg/dL (9-23); Glucose 64 mg/dL (74-106)
[2023-12-03 04:27] LABS: INR 1.39 (0.9-1.15); Prothrombin Time 14.3 sec (9.3-11.8)
[2023-12-03] MEDS: DEXTROSE (50%) 50ML SYRG IV PRN (04:58)
[2023-12-03] MEDS: HEPARIN DRIP/D5W 100UNITS/ML 250 ML IV SCH ×2 (06:09→15:40)
[2023-12-03] MEDS: cefTRIAXone 2GM/50ML D5W 50 ML IV SCH (08:44)
[2023-12-03 13:04] LABS: INR 1.36 (0.9-1.15)
[2023-12-03 13:11] LABS: Partial Thromboplastin Time > 139.0 SEC (24.5-34.5)
[2023-12-03] MEDS ORDERED: VANCOMYCIN PER PHARMACY 0 MG IV SCH (17:15)
[2023-12-03] MEDS: VANCOMYCIN 1GM/200ML 200 ML IV ONE (18:11)
[2023-12-03] MEDS: WARFARIN SODIUM 2.5 MG TAB PO ONE (18:12)
[2023-12-03 21:29] LABS: INR 1.46 (0.9-1.15); Partial Thromboplastin Time 59.8 SEC (24.5-34.5)
[2023-12-04] VITALS (8 sets, daily range): BP systolic 95–117; BP diastolic 48–62; PULSE 63–89; RESP 16–19; TEMP 97.5–98.8; O2SAT 95–100
[2023-12-04 03:37] LABS: Basophils # (auto) 0.2 10 ^3/uL (0-0.2); Basophils % (auto) 1.5 % (0.0-2.0); Eosinophils # (auto) 0.2 10 ^3/uL (0-0.8); Eosinophils % (auto) 1.6 % (0.0-7.0); Hematocrit 32.6 % (41.0-53.0); Hemoglobin 10.8 g/dL (13.5-17.5); Lymphocytes # (auto) 3.2 10 ^3/uL (0.4-5.4); Lymphocytes % (auto) 28.5 % (10.0-50.0); Mean Corpuscular Hemoglobin 29.2 pg (28.0-32.0); Mean Corpuscular Volume 88.4 fL (80.0-100.0); Monocytes # (auto) 1.5 10 ^3/uL (0-1.3); Monocytes % (auto) 13.1 % (0.0-12.0); Neutrophils # (auto) 6.2 10 ^3/uL (1.6-8.6); Neutrophils % (auto) 55.3 % (37.0-80.0); Nucleated Red Blood Cells % 0.2 %; Red Blood Cells 3.69 10^6/uL (4.5-5.90); Red Cell Distribution Width 15.6 % (11.8-14.3); White Blood Cell 11.2 10^3/uL (4.4-10.8)
[2023-12-04 03:41] LABS: Chloride 102 mmol/L (98-107); Potassium 4.2 mmol/L (3.5-5.1); Sodium 135 mmol/L (136-145)
[2023-12-04 03:42] LABS: Anion Gap 3 (5-15); Carbon Dioxide 30 mmol/L (20-30)
[2023-12-04 03:43] LABS: Calcium 8.3 mg/dL (8.7-10.4)
[2023-12-04 03:47] LABS: Blood Urea Nitrogen 25 mg/dL (9-23); Glucose 110 mg/dL (74-106)
[2023-12-04 04:03] LABS: INR 1.72 (0.9-1.15); Partial Thromboplastin Time 60.6 SEC (24.5-34.5); Prothrombin Time 17.4 sec (9.3-11.8)
[2023-12-04] MEDS: VANCOMYCIN 750mg/150ml 150 ML IV SCH (09:15)
[2023-12-04 10:13] LABS: INR 2.06 (0.9-1.15); Prothrombin Time 20.6 sec (9.3-11.8)
[2023-12-04] MEDS: InsuLIN REG 1unit/0.01ml Soln (100units/ml) SC ONE (16:51)
[2023-12-04] MEDS: WARFARIN SODIUM 2 MG TAB PO ONE (18:48)
[2023-12-05] VITALS (8 sets, daily range): BP systolic 100–129; BP diastolic 48–73; PULSE 60–95; RESP 17–22; TEMP 97.6–98.7; O2SAT 94–100
[2023-12-05 05:53] LABS: INR 2.71 (0.9-1.15); Prothrombin Time 26.7 sec (9.3-11.8)
[2023-12-05 05:56] LABS: Partial Thromboplastin Time 79.9 SEC (24.5-34.5)
[2023-12-05] MEDS: HEPARIN DRIP/D5W 100UNITS/ML 250 ML IV SCH ×2 (06:10→13:45)
[2023-12-05 13:06] LABS: Basophils # (auto) 0.3 10 ^3/uL (0-0.2); Basophils % (auto) 2.8 % (0.0-2.0); Eosinophils # (auto) 0.2 10 ^3/uL (0-0.8); Eosinophils % (auto) 1.8 % (0.0-7.0); Hematocrit 38.5 % (41.0-53.0); Hemoglobin 12.7 g/dL (13.5-17.5); Lymphocytes % (auto) 22.3 % (10.0-50.0); Mean Corpuscular Volume 90.8 fL (80.0-100.0); Monocytes # (auto) 0.9 10 ^3/uL (0-1.3); Monocytes % (auto) 9.9 % (0.0-12.0); Neutrophils # (auto) 5.7 10 ^3/uL (1.6-8.6); Neutrophils % (auto) 63.2 % (37.0-80.0); Nucleated Red Blood Cells % 0.1 %; Red Blood Cells 4.24 10^6/uL (4.5-5.90); Red Cell Distribution Width 15.6 % (11.8-14.3)
[2023-12-05 13:17] LABS: INR 2.12 (0.9-1.15); Partial Thromboplastin Time 46.4 SEC (24.5-34.5); Prothrombin Time 21.2 sec (9.3-11.8)
[2023-12-05] MEDS: VANCOMYCIN 750mg/150ml 150 ML IV SCH (14:01)
[2023-12-05] MEDS: WARFARIN SODIUM 5 MG TAB PO ONE (17:31)
[2023-12-05 20:15] LABS: INR 2.29 (0.9-1.15); Partial Thromboplastin Time 66.1 SEC (24.5-34.5); Prothrombin Time 22.8 sec (9.3-11.8)
[2023-12-06 01:00] VITALS: BP 101/52; PULSE 67; RESP 20; TEMP 98; O2SAT 95
[2023-12-06 01:45] LABS: INR 2.77 (0.9-1.15); Prothrombin Time 27.2 sec (9.3-11.8)
[2023-12-06 01:49] LABS: Partial Thromboplastin Time 70.6 SEC (24.5-34.5)
[2023-12-06 05:00] VITALS: BP 118/54; PULSE 67; RESP 18; TEMP 97.6; O2SAT 95
[2023-12-06 07:36] LABS: Chloride 102 mmol/L (98-107); Potassium 4.2 mmol/L (3.5-5.1); Sodium 137 mmol/L (136-145)
[2023-12-06 07:37] LABS: Anion Gap 3 (5-15); Calcium 8.5 mg/dL (8.5-10.1); Carbon Dioxide 32 mmol/L (20-30)
[2023-12-06 07:42] LABS: BUN/Creatinine Ratio 24.2 (10.0-20.0); Blood Urea Nitrogen 24 mg/dL (9-23); Glucose 95 mg/dL (74-106)
[2023-12-06 07:49] LABS: INR 2.81 (0.9-1.15); Prothrombin Time 27.6 sec (9.3-11.8)
[2023-12-06 07:58] LABS: Basophils # (auto) 0.2 10 ^3/uL (0-0.2); Basophils % (auto) 2.2 % (0.0-2.0); Eosinophils # (auto) 0.2 10 ^3/uL (0-0.8); Eosinophils % (auto) 2.1 % (0.0-7.0); Hematocrit 34.8 % (41.0-53.0); Hemoglobin 11.2 g/dL (13.5-17.5); Lymphocytes # (auto) 3.1 10 ^3/uL (0.4-5.4); Lymphocytes % (auto) 31.4 % (10.0-50.0); Mean Corpuscular Hemoglobin 28.6 pg (28.0-32.0); Mean Corpuscular Hgb Conc. 32.3 g/dL (32.0-36.0); Mean Corpuscular Volume 88.3 fL (80.0-100.0); Monocytes % (auto) 10.5 % (0.0-12.0); Neutrophils # (auto) 5.3 10 ^3/uL (1.6-8.6); Neutrophils % (auto) 53.8 % (37.0-80.0); Red Blood Cells 3.94 10^6/uL (4.5-5.90); Red Cell Distribution Width 15.5 % (11.8-14.3); White Blood Cell 9.8 10^3/uL (4.4-10.8)
[2023-12-06 07:59] LABS: Partial Thromboplastin Time 86.6 SEC (24.5-34.5)
[2023-12-06 08:00] VITALS: PULSE 66
[2023-12-06] MEDS ORDERED: HEPARIN DRIP/D5W 100UNITS/ML 250 ML IV SCH (08:45)
[2023-12-06 09:00] VITALS: BP 108/56; PULSE 66; RESP 16; TEMP 97.7; O2SAT 98
[2023-12-06] MEDS ORDERED: WARF-66 PO (11:50)
[2023-12-06 13:00] VITALS: BP 107/55; PULSE 57; RESP 14; TEMP 98.1; O2SAT 96
[2023-12-06] MEDS: WARFARIN SODIUM 1 MG TAB PO ONE (16:46)
[2023-12-06 17:00] VITALS: BP 117/62; PULSE 62; RESP 14; TEMP 97.3; O2SAT 97
[2023-12-06] MEDS ORDERED: APIXABAN 5 MG TAB PO SCH (22:00)
== END 2023-12-06 19:15 | disposition home or self-care (01) | DRG 698 ==
LOC: EDBD 18:11 → ER 18:11 → TELE 21:25 → ICU WEST 11-27 18:06 → TELE-EAST 11-30 16:55
PROVIDERS: ADMIT Internal Medicine Pulmonary Disease; ATTEND Internal Medicine Pulmonary Disease
PROC: 02HV33Z Insertion of Infusion Device into Superior Vena Cava, Percutaneous Approach (ICD-10-PCS; principal; 2023-11-26)
PROC: B548ZZA Ultrasonography of Superior Vena Cava, Guidance (ICD-10-PCS; 2023-11-26)
PROC: B24BZZ4 Ultrasonography of Heart with Aorta, Transesophageal (ICD-10-PCS; 2023-12-02)
DX: T83.518A Infection and inflammatory reaction due to other urinary catheter, initial encounter (principal); A41.81 Sepsis due to Enterococcus; I26.99 Other pulmonary embolism without acute cor pulmonale; R65.21 Severe sepsis with septic shock; R57.8 Other shock; J96.01 Acute respiratory failure with hypoxia; N39.0 Urinary tract infection, site not specified; E46 Unspecified protein-calorie malnutrition; Q21.12 Patent foramen ovale; I82.413 Acute embolism and thrombosis of femoral vein, bilateral; I82.433 Acute embolism and thrombosis of popliteal vein, bilateral; I82.443 Acute embolism and thrombosis of tibial vein, bilateral; Z16.21 Resistance to vancomycin; I48.20 Chronic atrial fibrillation, unspecified; E11.65 Type 2 diabetes mellitus with hyperglycemia; E86.0 Dehydration; I10 Essential (primary) hypertension; I27.20 Pulmonary hypertension, unspecified; E87.6 Hypokalemia; Z79.4 Long term (current) use of insulin; Z86.73 Personal history of transient ischemic attack (TIA), and cerebral infarction without residual deficits; Z95.2 Presence of prosthetic heart valve; Z79.01 Long term (current) use of anticoagulants; Z68.23 Body mass index [BMI] 23.0-23.9, adult
CPT/HCPCS: 36415; 36569; 70450; 71045; 71275; 74176; 80048; 80053; 80162; 80202; 81001; 82962; 83605; 83735; 83880; 84484; 85007; 85025; 85027; 85379; 85610; 85730; 87040; 87076; 87077; 87081; 87086; 87088; 87186; 93005; 93306; 93312; 93970; 97110; 97116; 97163; 97530; 99152; 99291; G0378; J1815; J1956; J2250; J2405; J3480

== ENCOUNTER 2024-02-11 22:17 | Inpatient (IN) | payer OTHER ==
[~2024-02-11] VITALS: Ht 167.6 cm; Wt 61.4 kg
[~2024-02-11 22:17] MED LIST changes: +AMLO1TAB22 PO; +CARV12.544 PO; -CARV3.1240 PO; -CIPR-173 PO; -FLUC150T38 PO; +NALO4SPR3 NAS; +PANT40TA2 PO; +POTA-215 PO; +TRAM50TA2 PO; -WARF-111 PO; +WARF-66 PO
[2024-02-11 23:10] VITALS: PULSE 48; RESP 18; O2SAT 94
[2024-02-11 23:30] LABS: Basophils # (auto) 0.1 10 ^3/uL (0-0.2); Basophils % (auto) 1.9 % (0.0-2.0); Eosinophils # (auto) 0.1 10 ^3/uL (0-0.8); Eosinophils % (auto) 1.4 % (0.0-7.0); Hematocrit 37.8 % (41.0-53.0); Hemoglobin 12.6 g/dL (13.5-17.5); Lymphocytes # (auto) 1.5 10 ^3/uL (0.4-5.4); Lymphocytes % (auto) 24.8 % (10.0-50.0); Mean Corpuscular Hemoglobin 28.7 pg (28.0-32.0); Mean Corpuscular Hgb Conc. 33.4 g/dL (32.0-36.0); Monocytes % (auto) 16.1 % (0.0-12.0); Neutrophils # (auto) 3.4 10 ^3/uL (1.6-8.6); Neutrophils % (auto) 55.8 % (37.0-80.0); Nucleated Red Blood Cells % 0.1 %; Red Cell Distribution Width 15.9 % (11.8-14.3); White Blood Cell 6.1 10^3/uL (4.4-10.8)
[2024-02-11 23:48] LABS: Alanine Aminotransferase 11 U/L (7-40); Albumin 3.7 g/dL (3.2-4.8); Alkaline Phosphatase 76 U/L (46-116); Anion Gap 6 (5-15); Aspartate Aminotransferase 13 U/L (13-40); BUN/Creatinine Ratio 28.8 (10.0-20.0); Bilirubin, Total 0.5 mg/dL (0.2-1.0); Blood Urea Nitrogen 49 mg/dL (9-23); Calcium 9.6 mg/dL (8.7-10.4); Carbon Dioxide 26 mmol/L (20-30); Chloride 105 mmol/L (98-107); Glucose 117 mg/dL (74-106); Lipase 22 U/L (12-53); Potassium 4.2 mmol/L (3.5-5.1); Sodium 137 mmol/L (136-145); Total Protein 5.6 g/dL (5.7-8.2)
[2024-02-12 00:36] LABS: Urine Bacteria MOD /hpf (None Seen); Urine Blood 2+ /uL (Negative); Urine Clarity Ex.Turbid (Clear); Urine Color Light-Brown (Yellow); Urine Protein, UAD 1+ (Negative); Urine Urobilinogen Normal (Negative); Urine WBC 2068 /hpf (0 - 3); Urine WBC Clumps PRESENT /hpf (None Seen); Urine pH 5.5 (5.0-9.0)
[2024-02-12] MEDS: SODIUM CHLORIDE 0.9% 1,000 ML IV ONE ×2 (01:21→16:50)
[2024-02-12] MEDS: ALBUMIN 25% 100 ML IV ONE (01:21)
[2024-02-12] MEDS: cefTRIAXone 1GM/50ML D5W 50 ML IV ONE (01:56)
[2024-02-12] MEDS ORDERED: HYDROcodone-ACET 5/325MG TAB PO PRN (02:00)
[2024-02-12] MEDS ORDERED: ONDANSETRON HCL 4 MG/2 ML VIAL IV PRN (02:00)
[2024-02-12] MEDS ORDERED: ACETAMINOPHEN 325 MG TAB PO PRN (02:00)
[2024-02-12] MEDS ORDERED: DOCUSATE SOD 100 MG CAP PO PRN (02:00)
[2024-02-12] MEDS ORDERED: DEXTROSE (50%) 50ML SYRG IV PRN (03:00)
[2024-02-12] MEDS ORDERED: MORPHINE SULFATE INJ 2 MG/ml SYRG IV PRN (05:00)
[2024-02-12] MEDS ORDERED: NITROGLYCERIN 0.4 MG SL TAB SL PRN (05:00)
[2024-02-12] MEDS: SODIUM CHLOR 0.9% PF (SALINE LOCK) 10ML VIAL/SYR IV SCH (06:03)
[2024-02-12] MEDS: InsuLIN REG 1unit/0.01ml Soln (100units/ml) SC SCH (06:42)
[2024-02-12] MEDS: ACCU-CHEK COMFORT CURVE STRIP VI SCH (06:43)
[2024-02-12 07:25] VITALS: PULSE 42; RESP 17; O2SAT 95
[2024-02-12 07:32] LABS: Basophils # (auto) 0.1 10 ^3/uL (0-0.2); Basophils % (auto) 2.5 % (0.0-2.0); Eosinophils # (auto) 0.1 10 ^3/uL (0-0.8); Eosinophils % (auto) 1.6 % (0.0-7.0); Hematocrit 35.6 % (41.0-53.0); Lymphocytes # (auto) 1.6 10 ^3/uL (0.4-5.4); Lymphocytes % (auto) 27.6 % (10.0-50.0); Mean Corpuscular Hemoglobin 29.1 pg (28.0-32.0); Mean Corpuscular Hgb Conc. 33.6 g/dL (32.0-36.0); Mean Corpuscular Volume 86.6 fL (80.0-100.0); Monocytes % (auto) 16.7 % (0.0-12.0); Neutrophils % (auto) 51.6 % (37.0-80.0); Nucleated Red Blood Cells % 0.1 %; Red Blood Cells 4.11 10^6/uL (4.5-5.90); Red Cell Distribution Width 15.5 % (11.8-14.3); White Blood Cell 5.8 10^3/uL (4.4-10.8)
[2024-02-12 07:54] LABS: Alanine Aminotransferase 9 U/L (7-40); Albumin 3.7 g/dL (3.2-4.8); Alkaline Phosphatase 68 U/L (46-116); Anion Gap 7 (5-15); Aspartate Aminotransferase 10 U/L (13-40); BUN/Creatinine Ratio 27.2 (10.0-20.0); Bilirubin, Total 0.4 mg/dL (0.2-1.0); Blood Urea Nitrogen 40 mg/dL (9-23); Calcium 9.1 mg/dL (8.5-10.1); Carbon Dioxide 24 mmol/L (20-30); Chloride 109 mmol/L (98-107); Glucose 91 mg/dL (74-106); Potassium 3.7 mmol/L (3.5-5.1); Sodium 140 mmol/L (136-145); Total Protein 5.3 g/dL (5.7-8.2)
[2024-02-12] MEDS: GLUCAGON EMERG KIT 1mg/1ml IV ONE (09:46)
[2024-02-12 09:54] LABS: INR > 8.0 (0.9-1.15)
[2024-02-12] MEDS: DOPamine 1600MCG/ML D5W 250 ML IV SCH (09:56)
[2024-02-12] MEDS: FUROSEMIDE 20 MG/2 ML VIAL IV SCH (10:40)
[2024-02-12] MEDS: phytonadione 5 MG in SODIUM CHL 0.9% 50 ML IV ONE (11:55)
[2024-02-12 14:52] LABS: Partial Thromboplastin Time 54.5 SEC (24.5-34.5); Prothrombin Time 42.4 sec (9.3-11.8)
[2024-02-12 14:57] LABS: INR 4.47 (0.9-1.15)
[2024-02-12 23:10] VITALS: BP 113/46; PULSE 47; RESP 21; TEMP 97.9; O2SAT 97
[2024-02-12 23:24] VITALS: RESP 16
[2024-02-13] VITALS (11 sets, daily range): BP systolic 112–142; BP diastolic 54–76; PULSE 51–68; RESP 11–20; TEMP 97.1–98.7; O2SAT 95–100
[2024-02-13] MEDS: cefTRIAXone 1GM/50ML D5W 50 ML IV SCH (02:25)
[2024-02-13 05:27] LABS: Basophils # (auto) 0.1 10 ^3/uL (0-0.2); Eosinophils # (auto) 0.1 10 ^3/uL (0-0.8); Eosinophils % (auto) 1.1 % (0.0-7.0); Hematocrit 38.7 % (41.0-53.0); Hemoglobin 12.9 g/dL (13.5-17.5); Lymphocytes # (auto) 1.2 10 ^3/uL (0.4-5.4); Mean Corpuscular Hgb Conc. 33.3 g/dL (32.0-36.0); Mean Corpuscular Volume 87.1 fL (80.0-100.0); Monocytes # (auto) 1.1 10 ^3/uL (0-1.3); Monocytes % (auto) 15.6 % (0.0-12.0); Neutrophils # (auto) 4.5 10 ^3/uL (1.6-8.6); Neutrophils % (auto) 65.3 % (37.0-80.0); Red Blood Cells 4.45 10^6/uL (4.5-5.90); Red Cell Distribution Width 15.6 % (11.8-14.3); White Blood Cell 6.8 10^3/uL (4.4-10.8)
[2024-02-13 05:40] LABS: INR 1.59 (0.9-1.15); Prothrombin Time 16.3 sec (9.3-11.8)
[2024-02-13 05:46] LABS: Alanine Aminotransferase 11 U/L (7-40); Albumin 3.6 g/dL (3.2-4.8); Alkaline Phosphatase 69 U/L (46-116); Anion Gap 5 (5-15); Aspartate Aminotransferase < 8 U/L (13-40); BUN/Creatinine Ratio 24.3 (10.0-20.0); Carbon Dioxide 25 mmol/L (20-30); Chloride 110 mmol/L (98-107); Glucose 117 mg/dL (74-106); Potassium 3.3 mmol/L (3.5-5.1); Sodium 140 mmol/L (136-145)
[2024-02-13 05:47] LABS: Bilirubin, Total 0.5 mg/dL (0.2-1.0); Total Protein 5.4 g/dL (5.7-8.2)
[2024-02-13 06:15] LABS: Blood Urea Nitrogen 28 mg/dL (9-23)
[2024-02-13] MEDS ORDERED: POTASSIUM EFFERVESENT TAB 25 MEQ PO ONE (09:30)
[2024-02-13] MEDS: POTASSIUM CHL 20 Meq TABLET PO ONE (10:24)
[2024-02-13] MEDS: MAGNESIUM SULFATE 1GM/100ML 100 ML IV ONE (10:25)
[2024-02-13] MEDS: SODIUM CHLORIDE 0.9% 1,000 ML IV ONE (10:25)
[2024-02-13] MEDS: VANCOMYCIN HCL 1000 MG VL ONE ×2 (13:34→14:32)
[2024-02-13] MEDS: MIDAZOLAM HCL 2MG/2ML 2ml VIAL (1mg/ml) ONE (13:35)
[2024-02-13] MEDS: LIDOCAINE 2%HCL (LOCAL ANESTH.) INJ 10ml MDV ONE (13:35)
[2024-02-13] MEDS: fentaNYL CITRATE 100 MCG/2 ML VL ONE (13:35)
[2024-02-13] MEDS: VANCOMYCIN 1GM/200ML 200 ML IV ONE (13:35)
[2024-02-13] MEDS: LIDOCAINE 2%HCL (LOCAL ANESTH.) INJ 20ML MDV ONE (14:14)
[2024-02-13] MEDS: WARFARIN SODIUM 5 MG TAB PO ONE (16:01)
[2024-02-13] MEDS: VANCOMYCIN 1GM/200ML 200 ML IV SCH (22:30)
[2024-02-14 01:00] VITALS: BP 117/60; PULSE 64; RESP 20; TEMP 98.1; O2SAT 95
[2024-02-14 05:00] VITALS: BP 164/80; PULSE 65; RESP 21; TEMP 97.6; O2SAT 97
[2024-02-14 06:01] LABS: Chloride 106 mmol/L (98-107); Potassium 3.9 mmol/L (3.5-5.1); Sodium 139 mmol/L (136-145)
[2024-02-14 06:02] LABS: Anion Gap 5 (5-15); Calcium 9.1 mg/dL (8.7-10.4); Carbon Dioxide 28 mmol/L (20-30); INR 1.88 (0.9-1.15); Partial Thromboplastin Time 42.4 SEC (24.5-34.5)
[2024-02-14 06:07] LABS: BUN/Creatinine Ratio 18.9 (10.0-20.0); Blood Urea Nitrogen 21 mg/dL (9-23); Glucose 189 mg/dL (74-106)
[2024-02-14 07:30] VITALS: PULSE 65; PULSE 70; RESP 19; O2SAT 99
[2024-02-14 08:06] LABS: PSA Free 2.58 ng/mL
[2024-02-14 09:00] VITALS: BP 129/61; PULSE 76; RESP 18; TEMP 97.6; O2SAT 95
[2024-02-14] MEDS: CARVEDILOL 12.5 MG TAB PO ONE (12:26)
[2024-02-14] MEDS: WARFARIN SODIUM 5 MG TAB PO ONE (17:00)
[2024-02-14 20:00] VITALS: PULSE 65; RESP 18; O2SAT 95
[2024-02-14 21:00] VITALS: BP 132/59; PULSE 61; RESP 17; TEMP 98.3; O2SAT 94
[2024-02-14] MEDS: CARVEDILOL 12.5 MG TAB PO SCH (21:28)
[2024-02-15 01:00] VITALS: BP 101/54; PULSE 59; RESP 18; TEMP 98.1; O2SAT 95
[2024-02-15 05:00] VITALS: BP 114/57; PULSE 60; RESP 17; TEMP 98; O2SAT 96
[2024-02-15 07:30] VITALS: PULSE 60; PULSE 80; RESP 1; O2SAT 98
[2024-02-15 09:00] VITALS: BP 108/54; PULSE 71; RESP 18; TEMP 97.1; O2SAT 95
[2024-02-15] MEDS: DIGOXIN 0.125 MG TAB PO SCH (10:23)
[2024-02-15] MEDS: CEFEPIME 2GM/50ML NS 50 ML IV SCH (10:23)
[2024-02-15 12:45] VITALS: BP 106/49; PULSE 60; RESP 16; TEMP 98.7; O2SAT 100
[2024-02-15 15:44] VITALS: BP 115/75; PULSE 80; RESP 16; TEMP 98.5; O2SAT 97
[2024-02-15] MEDS ORDERED: WARFARIN SODIUM 5 MG TAB PO ONE (17:00)
== END 2024-02-15 17:00 | disposition home health service (06) | DRG 242 ==
LOC: ER 22:17 → TELE 02-12 04:59 → TELE-CENTR 02-12 23:10
PROVIDERS: ADMIT Nurse Practitioner Family; ATTEND Internal Medicine Geriatric Medicine
PROC: 0JH604Z Insertion of Pacemaker, Single Chamber into Chest Subcutaneous Tissue and Fascia, Open Approach (ICD-10-PCS; principal; 2024-02-13)
PROC: 02HK3JZ Insertion of Pacemaker Lead into Right Ventricle, Percutaneous Approach (ICD-10-PCS; 2024-02-13)
PROC: B517YZZ Fluoroscopy of Left Subclavian Vein using Other Contrast (ICD-10-PCS; 2024-02-13)
PROC: 05H933Z Insertion of Infusion Device into Right Brachial Vein, Percutaneous Approach (ICD-10-PCS; 2024-02-15)
PROC: B54MZZA Ultrasonography of Right Upper Extremity Veins, Guidance (ICD-10-PCS; 2024-02-15)
DX: I49.5 Sick sinus syndrome (principal); N17.0 Acute kidney failure with tubular necrosis; B69.0 Cysticercosis of central nervous system; I45.89 Other specified conduction disorders; I13.0 Hypertensive heart and chronic kidney disease with heart failure and stage 1 through stage 4 chronic kidney disease, or unspecified chronic kidney disease; R57.9 Shock, unspecified; I50.22 Chronic systolic (congestive) heart failure; N13.8 Other obstructive and reflux uropathy; N13.6 Pyonephrosis; I48.19 Other persistent atrial fibrillation; N18.2 Chronic kidney disease, stage 2 (mild); E78.5 Hyperlipidemia, unspecified; E86.0 Dehydration; E87.5 Hyperkalemia; E11.22 Type 2 diabetes mellitus with diabetic chronic kidney disease; T44.7X5A Adverse effect of beta-adrenoreceptor antagonists, initial encounter; G31.9 Degenerative disease of nervous system, unspecified; F17.200 Nicotine dependence, unspecified, uncomplicated; T45.515A Adverse effect of anticoagulants, initial encounter; N40.1 Benign prostatic hyperplasia with lower urinary tract symptoms; E87.6 Hypokalemia; Z86.711 Personal history of pulmonary embolism; Z79.01 Long term (current) use of anticoagulants; Z95.2 Presence of prosthetic heart valve; Z79.84 Long term (current) use of oral hypoglycemic drugs; Z87.440 Personal history of urinary (tract) infections; Z79.899 Other long term (current) drug therapy; Z86.73 Personal history of transient ischemic attack (TIA), and cerebral infarction without residual deficits; Z87.442 Personal history of urinary calculi; Y92.89 Other specified places as the place of occurrence of the external cause; Z83.3 Family history of diabetes mellitus; Z82.49 Family history of ischemic heart disease and other diseases of the circulatory system
CPT/HCPCS: 33207; 36415; 70450; 71045; 74176; 80048; 80053; 80162; 81001; 82962; 83605; 83690; 83735; 83880; 84154; 84443; 84484; 85025; 85610; 85730; 87040; 87086; 93005; 96361; 96365; 96367; 96375; 97163; 99152; G0378; J0692; J1815; J2001; J2250; J3430; P9047

== ENCOUNTER 2024-04-07 15:51 | Inpatient (IN) | payer OTHER ==
[~2024-04-07] VITALS: Ht 167.6 cm; Wt 56.6 kg
[2024-04-07 18:13] VITALS: PULSE 59; RESP 16; O2SAT 96
[2024-04-07 18:32] LABS: Alanine Aminotransferase 12 U/L (7-40); Albumin 3.8 g/dL (3.2-4.8); Alkaline Phosphatase 74 U/L (46-116); Anion Gap 9 (5-15); Aspartate Aminotransferase 12 U/L (13-40); Bilirubin, Total 0.5 mg/dL (0.2-1.0); Blood Urea Nitrogen 40 mg/dL (9-23); Calcium 9.2 mg/dL (8.7-10.4); Carbon Dioxide 23 mmol/L (20-30); Chloride 102 mmol/L (98-107); Glucose 164 mg/dL (74-106); Lipase 23 U/L (12-53); Potassium 4.9 mmol/L (3.5-5.1); Sodium 134 mmol/L (136-145); Total Protein 5.7 g/dL (5.7-8.2)
[2024-04-07 18:38] LABS: Basophils # (auto) 0.1 10 ^3/uL (0-0.2); Eosinophils # (auto) 0.2 10 ^3/uL (0-0.8); Eosinophils % (auto) 2.3 % (0.0-7.0); Hematocrit 38.7 % (41.0-53.0); Hemoglobin 13.1 g/dL (13.5-17.5); Lymphocytes # (auto) 1.2 10 ^3/uL (0.4-5.4); Lymphocytes % (auto) 11.8 % (10.0-50.0); Mean Corpuscular Hemoglobin 29.6 pg (28.0-32.0); Mean Corpuscular Hgb Conc. 33.8 g/dL (32.0-36.0); Mean Corpuscular Volume 87.5 fL (80.0-100.0); Monocytes # (auto) 1.1 10 ^3/uL (0-1.3); Monocytes % (auto) 10.6 % (0.0-12.0); Neutrophils # (auto) 7.6 10 ^3/uL (1.6-8.6); Neutrophils % (auto) 74.3 % (37.0-80.0); Nucleated Red Blood Cells % 0.1 %; Red Blood Cells 4.42 10^6/uL (4.5-5.90); Red Cell Distribution Width 16.9 % (11.8-14.3); White Blood Cell 10.3 10^3/uL (4.4-10.8)
[2024-04-07 19:20] LABS: INR > 8.0 (0.9-1.15); Partial Thromboplastin Time 118.7 SEC (24.5-34.5)
[2024-04-07] MEDS ORDERED: ACETAMINOPHEN 325 MG TAB PO PRN (20:15)
[2024-04-07] MEDS ORDERED: DEXTROSE (50%) 50ML SYRG IV PRN (20:15)
[2024-04-07] MEDS ORDERED: MORPHINE SULFATE INJ 2 MG/ml SYRG IV PRN (20:15)
[2024-04-07] MEDS ORDERED: NITROGLYCERIN 0.4 MG SL TAB SL PRN (20:15)
[2024-04-07] MEDS ORDERED: ONDANSETRON HCL 4 MG/2 ML VIAL IV PRN (20:15)
[2024-04-07] MEDS: PHYTONADIONE (VIT K)10 MG/ML 1ML VIAL SUBCUT ONE (21:02)
[2024-04-07] MEDS: SODIUM CHLORIDE 0.9% 1,000 ML IV ONE (21:23)
[2024-04-07] MEDS: ACCU-CHEK COMFORT CURVE STRIP VI SCH (22:00)
[2024-04-07 22:08] LABS: Urine Bacteria None Seen /hpf (None Seen)
[2024-04-07] MEDS: ATORVASTATIN 20 MG TAB PO SCH (22:16)
[2024-04-07 22:18] LABS: Urine Blood 2+ /uL (Negative); Urine Budding Yeast MANY /hpf (None Seen); Urine Clarity Ex.Turbid (Clear); Urine Color Colorless (Yellow); Urine Mucus FEW (None Seen); Urine Protein, UAD 1+ (Negative); Urine Specific Gravity 1.011 (1.001-1.035); Urine Urobilinogen Normal (Negative); Urine WBC 1461 /hpf (0 - 3); Urine WBC Clumps PRESENT /hpf (None Seen); Urine pH 5.5 (5.0-9.0)
[2024-04-07] MEDS: InsuLIN REG 1unit/0.01ml Soln (100units/ml) SC SCH (22:33)
[2024-04-07 23:25] VITALS: PULSE 59; RESP 16; O2SAT 97
[2024-04-08 06:00] LABS: Basophils # (auto) 0.1 10 ^3/uL (0-0.2); Basophils % (auto) 1.5 % (0.0-2.0); Eosinophils # (auto) 0.3 10 ^3/uL (0-0.8); Eosinophils % (auto) 3.1 % (0.0-7.0); Hematocrit 37.4 % (41.0-53.0); Hemoglobin 12.9 g/dL (13.5-17.5); Lymphocytes # (auto) 1.4 10 ^3/uL (0.4-5.4); Lymphocytes % (auto) 15.4 % (10.0-50.0); Mean Corpuscular Hgb Conc. 34.6 g/dL (32.0-36.0); Mean Corpuscular Volume 86.9 fL (80.0-100.0); Monocytes # (auto) 1.1 10 ^3/uL (0-1.3); Monocytes % (auto) 11.6 % (0.0-12.0); Neutrophils # (auto) 6.3 10 ^3/uL (1.6-8.6); Neutrophils % (auto) 68.4 % (37.0-80.0); Nucleated Red Blood Cells % 0.1 %; Red Blood Cells 4.31 10^6/uL (4.5-5.90); Red Cell Distribution Width 16.6 % (11.8-14.3); White Blood Cell 9.3 10^3/uL (4.4-10.8)
[2024-04-08 06:08] LABS: Anion Gap 8 (5-15); Calcium 9.1 mg/dL (8.7-10.4); Carbon Dioxide 26 mmol/L (20-30); Chloride 104 mmol/L (98-107); Potassium 3.8 mmol/L (3.5-5.1); Sodium 138 mmol/L (136-145)
[2024-04-08 06:14] LABS: Blood Urea Nitrogen 42 mg/dL (9-23); Glucose 86 mg/dL (74-106)
[2024-04-08 06:54] LABS: Partial Thromboplastin Time 133.8 SEC (24.5-34.5)
[2024-04-08 06:55] LABS: INR > 8.0 (0.9-1.15)
[2024-04-08 07:55] VITALS: PULSE 60; RESP 14; O2SAT 100
[2024-04-08] MEDS: PHYTONADIONE (VIT K)10 MG/ML 1ML VIAL SUBCUT ONE (07:59)
[2024-04-08] MEDS: DIGOXIN 0.125 MG TAB PO SCH (10:45)
[2024-04-08] MEDS: FUROSEMIDE 40 MG TAB PO SCH (10:46)
[2024-04-08] MEDS: TAMSULOSIN HYDROCHLORIDE 0.4 MG CAP PO SCH (18:28)
[2024-04-08 20:00] VITALS: PULSE 60; PULSE 79; RESP 18; O2SAT 96
[2024-04-08 21:00] VITALS: BP 120/65; PULSE 71; RESP 17; O2SAT 96
[2024-04-09] VITALS (7 sets, daily range): BP systolic 101–118; BP diastolic 41–80; PULSE 60–80; RESP 14–18; TEMP 97.2–98; O2SAT 94–100
== END 2024-04-09 20:03 | disposition home or self-care (01) | DRG 917 ==
LOC: ER 15:51 → TELE 20:19 → TELE-WESTW 04-08 17:52
PROVIDERS: ADMIT Internal Medicine; ATTEND Internal Medicine
DX: T45.511A Poisoning by anticoagulants, accidental (unintentional), initial encounter (principal); I50.33 Acute on chronic diastolic (congestive) heart failure; I13.0 Hypertensive heart and chronic kidney disease with heart failure and stage 1 through stage 4 chronic kidney disease, or unspecified chronic kidney disease; N17.9 Acute kidney failure, unspecified; D68.32 Hemorrhagic disorder due to extrinsic circulating anticoagulants; I95.9 Hypotension, unspecified; E11.65 Type 2 diabetes mellitus with hyperglycemia; I48.91 Unspecified atrial fibrillation; N40.0 Benign prostatic hyperplasia without lower urinary tract symptoms; N18.9 Chronic kidney disease, unspecified; E11.22 Type 2 diabetes mellitus with diabetic chronic kidney disease; Z95.2 Presence of prosthetic heart valve; Z79.899 Other long term (current) drug therapy; Z79.01 Long term (current) use of anticoagulants; Y92.89 Other specified places as the place of occurrence of the external cause; Z86.73 Personal history of transient ischemic attack (TIA), and cerebral infarction without residual deficits; K06.8 Other specified disorders of gingiva and edentulous alveolar ridge
CPT/HCPCS: 36415; 80048; 80053; 81001; 82962; 83605; 83690; 83880; 84484; 85025; 85610; 85730; 96360; 96372; G0378; J1815; J3430

== ENCOUNTER 2024-07-19 12:31 | Inpatient (IN) | payer OTHER ==
[~2024-07-19] VITALS: Ht 156.1 cm; Wt 61.5 kg
[~2024-07-19 12:31] MED LIST changes: -TAMS0.4C36 PO; +TAMS0.4C39 PO; -WARF-66 PO
--- NOTE | 2024-07-19 12:56 | ED.PDOC ---
History of Present Illness HPI Comments 78 year old male brought in by brother presents to the ED with chief complaint of generalized weakness. Brother reports that he has taken care of the patient about a month ago and he has been noted to be increasingly weak for the past few months. Brother relays that the patient had a follow up today with Dr. Beth and upon having his vitals taken, his BP was low with a systolic in the 80s, so he was advised to be taken to the ED for further evaluation and admission. Patient denies any chest pain, SOB, dizziness, headache, fever, chills, or dysuria. Time Seen by MD: 12:51 Primary Care Provider: LITO Reviewed Notes: Nurses Notes, Medications, Allergies Allergies: Coded Allergies: NO KNOWN ALLERGIES (Unverified , 10/14/23) Home Meds Reported Medications Potassium Chloride (Klor-Con M10) 10 Meq Tab, 1 TAB PO DAILY 11/24/23 Amlodipine Besylate (Amlodipine Besylate) 5 Mg Tab, 10 MG PO DAILY 11/24/23 Pantoprazole Sodium Sesquihydr (Protonix) 40 Mg Tab, 1 TAB PO DAILY 11/24/23 Naloxone HCl (Naloxone Hydrochloride) 4 Mg/0.1 Ml Spr, 1 SPRAY [place] PRN for Decreased responsiveness 11/24/23 Tramadol Hcl (Tramadol Hcl) 50 Mg Tab, 25 MG PO Q6HP 11/24/23 Carvedilol (Carvedilol) 12.5 Mg Tab, 1 TAB PO BID 11/24/23 Lovastatin (Lovastatin) 40 Mg Tab, 1 TAB PO DAILY, #30 TAB 5 Refills 10/15/23 Glipizide (Glipizide) 5 Mg Tab, 1 TAB PO BID 10/15/23 Furosemide (Furosemide) 40 Mg Tab, 1 TAB PO DAILY, #30 TAB 5 Refills 10/15/23 Finasteride (Finasteride) 5 Mg Tab, 5 MG PO DAILY for 30 Days, MG 10/15/23 Losartan Potassium (Losartan Potassium) 25 Mg Tab, 25 MG PO DAILY for 30 Days, MG 10/15/23 Tamsulosin Hcl (Tamsulosin Hcl) 0.4 Mg Cap, 0.4 MG PO QPM for 30 Days, MG 10/15/23 Digoxin (Digox) 125 Mcg Tab, 1 TAB PO DAILY 10/15/23 Metformin Hydrochloride (Metformin Hcl) 500 Mg Tab, 1 TAB PO BID 10/15/23 Information Source: Patient, Relative Mode of Arrival: Wheelchair Severity: Moderate Timing: Days Duration: Since onset Prehospital treatment: None Past Medical History PAST MEDICAL HISTORY: AFIB, CHF, DM, HTN, TIA Surgical History: Denies all surgeries Family History Family History: Reviewed,noncontributory to illness, Unknown Social History Smoker: Non-Smoker Alcohol: Denies ETOH Use Drugs: Denies Drug Use Lives In: Home Constitutional: reports: weakness; denies: chills, diaphoresis, fatigue, fever, malaise, sweats, others EENTM: denies: blurred vision, double vision, ear bleeding, ear discharge, ear drainage, ear pain, ear ringing, eye pain, eye redness, hearing loss, mouth pain, mouth swelling, nasal discharge, nose bleeding, nose congestion, nose pain, photophobia, tearing, throat pain, throat swelling, voice changes, others Respiratory: denies: cough, hemoptysis, orthopnea, SOB at rest, shortness of breath, SOB with excertion, stridor, wheezing, others Cardiovascular: denies: chest pain, dizzy spells, diaphoresis, Dyspnea on exertion, edema, irregular heart beat, left arm pain, lightheadedness, palpitations, PND, syncope, others Gastrointestinal: denies: abdomen distended, abdominal pain, blood streaked bowels, constipated, diarrhea, dysphagia, difficulty swallowing, hematemesis, melena, nausea, poor appetite, poor fluid intake, rectal bleeding, rectal pain, vomiting, others Genitourinary: denies: burning, dysuria, flank pain, frequency, hematuria, incontinence, penile discharge, penile sore, pain, testicle pain, testicle swelling, urgency, others Neurological: denies: dizziness, fainting, headache, left sided numbness, left sided weakness, numbness, paresthesia, pre-existing deficit, right sided numbness, right sided weakness, seizure, speech problems, tingling, tremors, weakness, others Musculoskeletal: denies: back pain, gout, joint pain, joint swelling, muscle pain, muscle stiffness, neck pain, others Integumetry: denies: bruises, change in color, change in hair/nails, dryness, laceration, lesions, lumps, rash, wounds, others Allergic/Immunocompromised: denies: Difficulty Healing, Frequent Infections, Hives, Itching, others Hematologic/Lymphatic: denies: anemia, blood clots, easy bleeding, easy bruising, swollen glands, others Endocrine: denies: excessive hunger, excessive sweating, excessive thirst, excessive urination, flushing, intolerance to cold, intolerance to heat, unexplained weight gain, unexplained weight loss, others Psychiatric: denies: anxiety, bipolar disorder, depression, hopeless, panic disorder, schizophrenia, sleepless, suicidal, others All Other Systems: Reviewed and Negative Physical Exam General Appearance: Moderate Distress, Thin HEENT: Normal ENT Inspection, PERRL/EOMI Neck: Full Range of Motion, Non-Tender, Normal, Normal Inspection Respiratory: Chest Non-Tender, Lungs Clear, No Accessory Muscle Use, No Respiratory Distress, Normal Breath Sounds Cardiovascular: Irregular, No Edema, No JVD, No Murmur, No Gallop, Normal Peripheral Pulses Breast Exam: Deferred Gastrointestinal: No Organomegaly, Non Tender, No Pulsatile Mass, Normal Bowel Sounds, Soft Genitalia: Deferred Pelvic: Deferred Rectal: Deferred Extremities: Decreased range of motion, No calf tenderness, Normal capillary refill, Normal inspection, Non-tender, No pedal edema Musculoskeletal : Apperance: Normal Neurologic: Alert, 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 Was a procedure done?: No Differential Dx Considerations may include: Failure to thrive Electrolyte imbalance X-Ray, Labs, Meds, VS Vital Signs Date Time Temp Pulse Resp B/P (MAP) Pulse Ox O2 Delivery O2 Flow Rate FiO2 07/19/24 12:59 68 07/19/24 12:54 97.8 71 18 108/52 (70) 96 Lab Test 07/19/24 13:06 Range/Units White Blood Count 9.3 4.4-10.8 10^3/uL Red Blood Count 3.98 L 4.5-5.90 10^6/uL Hemoglobin 11.5 L 13.5-17.5 g/dL Hematocrit 34.8 L 41.0-53.0 % Mean Corpuscular Volume 87.6 80.0-100.0 fL Mean Corpuscular Hemoglobin 28.9 28.0-32.0 pg Mean Corpuscular Hemoglobin Concent 33.0 32.0-36.0 g/dL Red Cell Distribution Width 16.5 H 11.8-14.3 % Platelet Count 238 140-450 10^3/uL Mean Platelet Volume 7.5 6.9-10.8 fL Neutrophils (%) (Auto) 37.0-80.0 % Lymphocytes (%) (Auto) 10.0-50.0 % Monocytes (%) (Auto) 0.0-12.0 % Basophils (%) (Auto) 0.0-2.0 % Neutrophils # (Auto) 1.6-8.6 10 ^3/uL Lymphocytes # (Auto) 0.4-5.4 10 ^3/uL Monocytes # (Auto) 0-1.3 10 ^3/uL Differential Total Cells Counted 100.0 100 Neutrophils % (Manual) 68 37.0-80.0 Band Neutrophils % (Manual) 12 Lymphocytes % (Manual) 12 10.0-50.0 Monocytes % (Manual) 8 0-12 Eosinophils % (Manual) 0 0-7 Basophils % (Manual) 0 0.0-2.0 Metamyelocytes % (manual) 0 Myelocytes % (Manual) 0 Promyelocytes % (Manual) 0 Blast Cells % (Manual) 0 Reactive Lymphocytes 0 Platelet Estimate Adequate Sodium Level 139 136-145 mmol/L Potassium Level 4.8 3.5-5.1 mmol/L Chloride Level 104 98-107 mmol/L Carbon Dioxide Level 29 20-31 mmol/L Anion Gap 6 5-15 Blood Urea Nitrogen 74 H 9-23 mg/dL Creatinine 2.12 H 0.700-1.30 mg/dL Glomerular Filtration Rate Calc 31 >90 mL/min BUN/Creatinine Ratio 34.9 H 10.0-20.0 Serum Glucose 255 H 74-106 mg/dL Calcium Level 9.4 8.7-10.4 mg/dL Troponin I High Sensitivity 21 </=54 ng/L Patient alert. Complaining of generalized weakness. Was sent from his primary care office. Vitals stable. EKG does show possible malfunction of the pacemaker. He has not been tolerating diet for some time. He is weak. He is unable to ambulate without help. Possible stroke. Possible TIA. Establish intravenous access. Was given fluids. Reviewed his previous visit. Explained to the family treatment plan. Time of 1ST Reevaluation: 13:51 Reevaluation 1ST: Unchanged Patient Education/Counseling: Diagnosis, Treatment Family Education/Counseling: Diagnosis, Treatment Departure 1 Departure Time of Disposition: 13:03 Impression: Primary Impression: Failure to thrive Qualified Codes: R62.7 - Adult failure to thrive Additional Impressions: BPH (benign prostatic hyperplasia) Qualified Codes: N40.0 - Benign prostatic hyperplasia without lower urinary tract symptoms Atrial fibrillation Qualified Codes: I48.91 - Unspecified atrial fibrillation Disposition: ADMITTED INPATIENT Admit to: Med Surg Condition: Guarded Critical Care Note Critical Care Time?: Yes (45 min-critical care time only) Stability Stability form required: No Heart Score Heart Score: Heart Score Response (Comments) Value History Moderate Suspicious 1 EKG Normal 0 Age >65 2 Risk Factors >3 or Hx ASHD 2 Troponin Normal limit 0 Total 5 I personally scribed for MEG HASKINS MD ([email or web address]) on 07/19/24 at 12:56. Electronically submitted by Mickey Harris [email or web address]). MEG HASKINS MD Jul 19, 2024 12:56
[2024-07-19 13:29] LABS: Hematocrit 34.8 % (41.0-53.0); Hemoglobin 11.5 g/dL (13.5-17.5); Mean Corpuscular Hemoglobin 28.9 pg (28.0-32.0); Mean Corpuscular Volume 87.6 fL (80.0-100.0); Platelet Count (auto) 238 10^3/uL (140-450); Red Blood Cells 3.98 10^6/uL (4.5-5.90); Red Cell Distribution Width 16.5 % (11.8-14.3); White Blood Cell 9.3 10^3/uL (4.4-10.8)
[2024-07-19 13:41] LABS: Basophils % (manual) 0 (0.0-2.0); Blast Cells 0; Eosinophils % (manual) 0 (0-7); Metamyelocytes % 0; Myelocytes % 0; Promyelocytes % 0; Reactive Lymphocytes 0
[2024-07-19 14:02] LABS: Chloride 104 mmol/L (98-107); Potassium 4.8 mmol/L (3.5-5.1); Sodium 139 mmol/L (136-145)
[2024-07-19 14:03] LABS: Anion Gap 6 (5-15); Calcium 9.4 mg/dL (8.7-10.4); Carbon Dioxide 29 mmol/L (20-31)
[2024-07-19 14:08] LABS: Blood Urea Nitrogen 74 mg/dL (9-23)
[2024-07-19 14:09] LABS: BUN/Creatinine Ratio 34.9 (10.0-20.0)
[2024-07-19 14:10] LABS: Glucose 255 mg/dL (74-106)
[2024-07-19 14:24] LABS: Band Neutrophils % (manual) 12; Lymphocytes % (manual) 12 (10.0-50.0); Monocytes % (manual) 8 (0-12); Platelet Estimate Adequate
[2024-07-19 16:00] VITALS: PULSE 65; RESP 20; O2SAT 96
[2024-07-19 17:45] LABS: Urine Bacteria None Seen /hpf (None Seen)
[2024-07-19 18:10] LABS: Urine Blood 2+ /uL (Negative); Urine Budding Yeast MODERATE /hpf (None Seen); Urine Clarity Ex.Turbid (Clear); Urine Color Brown (Yellow); Urine Protein, UAD 1+ (Negative); Urine Specific Gravity 1.011 (1.001-1.035); Urine Urobilinogen Normal (Negative); Urine WBC 3652 /hpf (0 - 3); Urine WBC Clumps PRESENT /hpf (None Seen); Urine pH 5.5 (5.0-9.0)
[2024-07-19] MEDS ORDERED: MORPHINE SULFATE INJ 2 MG/ml SYRG IV PRN (19:00)
[2024-07-19] MEDS ORDERED: NITROGLYCERIN 0.4 MG SL TAB SL PRN (19:00)
[2024-07-19 20:25] LABS: LDL Cholesterol 54 mg/dL (< 100); Triglycerides 164 mg/dL (< 150)
[2024-07-19 20:27] LABS: Cholesterol 122 mg/dL (< 200); HDL Cholesterol 36 mg/dL (40-59)
[2024-07-19 20:30] VITALS: PULSE 76; RESP 18; O2SAT 98
--- NOTE | 2024-07-19 20:49 | DVH ---
INDICATION: Acute renal failure. TECHNIQUE: Multiple real-time sonographic images of the kidneys and bladder were obtained. COMPARISON: None FINDINGS: RIGHT kidney measures 10.4 cm in length. Mild hydronephrosis. Nephrolithiasis. Increased echogenicity. Cyst measuring 1.4 cm. LEFT kidney measures 14.7 cm in length. Moderate to severe hydronephrosis. Dilated left ureter. No large intraluminal masses are seen in the bladder. Prevoid urinary bladder volume 158 mL. Urinary bladder wall thickening measuring 20 mm. Layering margaux ris within the urinary bladder. Lobulated and heterogeneous prostate. Small urinary bladder diverticu la. IMPRESSION: Mild right and moderate to severe left hydronephrosis. Increased echogenicity in the right kidney con cerning for medical renal disease. Urinary bladder wall thickening with layering of debris concerning for infectious process. The prosta te appears enlarged and heterogeneous. Correlation with PSA recommended. Small urinary bladder dive rticula.
[2024-07-19] MEDS: FLUCONAZOLE 200MG/100ML 100 ML IV ONE (21:26)
[2024-07-19] MEDS: SODIUM CHLORIDE 0.9% 1,000 ML IV ONE (21:26)
[2024-07-19] MEDS: glipiZIDE 5 MG TAB PO SCH (22:31)
[2024-07-19] MEDS: INSULIN LISPRO (HUMAN) 100 UNITS/ML ML SC SCH (22:31)
[2024-07-20] VITALS (8 sets, daily range): BP systolic 110–140; BP diastolic 53–68; PULSE 59–71; RESP 17–18; TEMP 97.6–98.7; O2SAT 96–99
[2024-07-20 04:43] LABS: Hematocrit 37.4 % (41.0-53.0); Hemoglobin 12.1 g/dL (13.5-17.5); Mean Corpuscular Hemoglobin 28.2 pg (28.0-32.0); Mean Corpuscular Hgb Conc. 32.3 g/dL (32.0-36.0); Mean Corpuscular Volume 87.1 fL (80.0-100.0); Platelet Count (auto) 247 10^3/uL (140-450); Red Blood Cells 4.29 10^6/uL (4.5-5.90); Red Cell Distribution Width 16.5 % (11.8-14.3); White Blood Cell 9.5 10^3/uL (4.4-10.8)
[2024-07-20 04:47] LABS: Basophils % (manual) 0 (0.0-2.0); Blast Cells 0; Promyelocytes % 0; Reactive Lymphocytes 0
[2024-07-20 05:04] LABS: Alanine Aminotransferase 15 U/L (7-40); Albumin 3.8 g/dL (3.2-4.8); Alkaline Phosphatase 91 U/L (46-116); Anion Gap 7 (5-15); Aspartate Aminotransferase 25 U/L (13-40); BUN/Creatinine Ratio 36.2 (10.0-20.0); Bilirubin, Total 0.3 mg/dL (0.2-1.0); Calcium 9.7 mg/dL (8.7-10.4); Carbon Dioxide 30 mmol/L (20-31); Chloride 108 mmol/L (98-107); Glucose 81 mg/dL (74-106); Magnesium 1.9 mg/dL (1.6-2.6); Potassium 3.6 mmol/L (3.5-5.1); Sodium 145 mmol/L (136-145)
[2024-07-20 05:05] LABS: Total Protein 5.6 g/dL (5.7-8.2)
[2024-07-20 05:09] LABS: Blood Urea Nitrogen 64 mg/dL (9-23)
[2024-07-20 06:34] LABS: Anisocytosis Slight; Band Neutrophils % (manual) 5; Eosinophils % (manual) 6 (0-7); Lymphocytes % (manual) 13 (10.0-50.0); Metamyelocytes % 1; Monocytes % (manual) 10 (0-12); Myelocytes % 1; Platelet Estimate Adequate
[2024-07-20] MEDS: INSULIN LISPRO (HUMAN) 100 UNITS/ML ML SC SCH (07:00)
[2024-07-20] MEDS: PIPERACILLIN-TAZOB 3.375GM 100 ML IV ONE (08:26)
--- NOTE | 2024-07-20 10:44 | ECG ---
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
[2024-07-20] MEDS: PANTOPRAZOLE 40 MG TAB PO SCH (11:50)
[2024-07-20] MEDS: FINASTERIDE 5 MG TAB PO SCH (11:50)
[2024-07-20] MEDS: DIGOXIN 0.125 MG TAB PO SCH (11:51)
[2024-07-20] MEDS: PIPERACILLIN-TAZOB 3.375GM 100 ML IV SCH (14:14)
--- NOTE | 2024-07-20 20:24 | DVHINCON2 ---
"Date of service: Jul 19, 2024 Family History: Patient reports no known family medical history. Allergies: Coded Allergies: NO KNOWN ALLERGIES (Unverified , 10/14/23) Home Meds Reported Medications Potassium Chloride (Klor-Con M10) 10 Meq Tab, 1 TAB PO DAILY 11/24/23 Pantoprazole Sodium Sesquihydr (Protonix) 40 Mg Tab, 1 TAB PO DAILY 11/24/23 Carvedilol (Carvedilol) 12.5 Mg Tab, 1 TAB PO BID 11/24/23 Lovastatin (Lovastatin) 40 Mg Tab, 1 TAB PO DAILY, #30 TAB 5 Refills 10/15/23 Glipizide (Glipizide) 5 Mg Tab, 1 TAB PO BID 10/15/23 Finasteride (Finasteride) 5 Mg Tab, 5 MG PO DAILY for 30 Days, MG 10/15/23 Losartan Potassium (Losartan Potassium) 25 Mg Tab, 25 MG PO DAILY for 30 Days, MG 10/15/23 Tamsulosin Hcl (Tamsulosin Hcl) 0.4 Mg Cap, 0.4 MG PO QPM for 30 Days, MG 10/15/23 Digoxin (Digox) 125 Mcg Tab, 1 TAB PO DAILY 10/15/23 Metformin Hydrochloride (Metformin Hcl) 500 Mg Tab, 1 TAB PO BID 10/15/23 Current Medications Current Medications Medications (Trade) Dose Ordered Sig/Rudy Route PRN Reason Start Time Stop Time Status Last Admin Digoxin (Lanoxin Tablet) 0.125 mg DAILY PO 07/20/24 10:00 07/20/24 11:51 Finasteride (Proscar Tablet) 5 mg DAILY PO 07/20/24 10:00 07/20/24 11:50 Glipizide (Glucotrol Tablet) 5 mg BID PO 07/19/24 22:00 07/20/24 11:54 Pantoprazole Sodium (Protonix Tablet) 40 mg DAILY PO 07/20/24 10:00 07/20/24 11:50 Insulin Human Lispro (HumaLOG) AC SC 07/20/24 07:00 07/20/24 17:08 Insulin Human Lispro (HumaLOG) HS SC 07/19/24 22:00 07/19/24 22:31 Piperacillin Sod/ Tazobactam Sod 100 ml @ 25 mls/hr Q8HR IV 07/20/24 14:00 07/20/24 14:14 Vital Signs Vital Signs Date Time Temp Pulse Resp B/P (MAP) Pulse Ox O2 Delivery O2 Flow Rate FiO2 07/20/24 17:00 98.3 67 17 128/60 (82) 98 98.3 07/20/24 00:00 Nasal Cannula* 2 28 Labs/Diagnostic Data Labs Test 07/20/24 16:59 07/20/24 04:29 07/19/24 17:44 07/19/24 13:06 Range/Units POC Glucose 276 H 70-106 mg/dl White Blood Count 9.5 4.4-10.8 10^3/uL Red Blood Count 4.29 L 4.5-5.90 10^6/uL Hemoglobin 12.1 L 13.5-17.5 g/dL Hematocrit 37.4 L 41.0-53.0 % Mean Corpuscular Volume 87.1 80.0-100.0 fL Mean Corpuscular Hemoglobin 28.2 28.0-32.0 pg Mean Corpuscular Hemoglobin Concent 32.3 32.0-36.0 g/dL Red Cell Distribution Width 16.5 H 11.8-14.3 % Platelet Count 247 140-450 10^3/uL Mean Platelet Volume 7.1 6.9-10.8 fL Neutrophils (%) (Auto) 37.0-80.0 % Lymphocytes (%) (Auto) 10.0-50.0 % Monocytes (%) (Auto) 0.0-12.0 % Basophils (%) (Auto) 0.0-2.0 % Neutrophils # (Auto) 1.6-8.6 10 ^3/uL Lymphocytes # (Auto) 0.4-5.4 10 ^3/uL Monocytes # (Auto) 0-1.3 10 ^3/uL Differential Total Cells Counted 100.0 100 Neutrophils % (Manual) 64 37.0-80.0 Band Neutrophils % (Manual) 5 Lymphocytes % (Manual) 13 10.0-50.0 Monocytes % (Manual) 10 0-12 Eosinophils % (Manual) 6 0-7 Basophils % (Manual) 0 0.0-2.0 Metamyelocytes % (manual) 1 Myelocytes % (Manual) 1 Promyelocytes % (Manual) 0 Blast Cells % (Manual) 0 Reactive Lymphocytes 0 Platelet Estimate Adequate Anisocytosis (manual) Slight Schistocytes Few Sodium Level 145 # 136-145 mmol/L Potassium Level 3.6 3.5-5.1 mmol/L Chloride Level 108 H 98-107 mmol/L Carbon Dioxide Level 30 20-31 mmol/L Anion Gap 7 5-15 Blood Urea Nitrogen 64 #H 9-23 mg/dL Creatinine 1.77 H 0.700-1.30 mg/dL Glomerular Filtration Rate Calc 39 >90 mL/min BUN/Creatinine Ratio 36.2 H 10.0-20.0 Serum Glucose 81 # 74-106 mg/dL Calcium Level 9.7 8.7-10.4 mg/dL Magnesium Level 1.9 1.6-2.6 mg/dL Total Bilirubin 0.3 0.2-1.0 mg/dL Aspartate Amino Transferase (AST) 25 13-40 U/L Alanine Aminotransferase (ALT) 15 7-40 U/L Alkaline Phosphatase 91 46-116 U/L Total Protein 5.6 L 5.7-8.2 g/dL Albumin 3.8 3.2-4.8 g/dL Digoxin Level 1.66 0.8-2 ng/mL Urine Color Brown H Yellow Urine Clarity Ex.turbid Clear Urine pH 5.5 5.0-9.0 Urine Specific [place] 1.011 1.001-1.035 Urine Protein 1+ H Negative Urine Ketones Negative Negative Urine Blood 2+ H Negative /uL Urine Nitrite Negative Negative Urine Bilirubin Negative Negative Urine Urobilinogen Normal Negative mg/dL Urine Leukocyte Esterase 3+ Negative /uL Urine RBC 69 0 - 3 /hpf Urine WBC 3652 0 - 3 /hpf Urine WBC Clumps Present None Seen /hpf Urine Squamous Epithelial Cells None seen <5 /hpf Urine Bacteria None seen None Seen /hpf Urine Yeast (Budding) Moderate None Seen /hpf Urine Glucose Normal Normal mg/dL Hemoglobin A1c 8.9 H <5.7 % A1C Phosphorus Level 3.8 2.4-5.1 mg/dL Troponin I High Sensitivity 21 </=54 ng/L Triglycerides Level 164 H < 150 mg/dL Cholesterol Level 122 < 200 mg/dL LDL Cholesterol 54 < 100 mg/dL HDL Cholesterol 36 L 40-59 mg/dL Microbiology Date/Time Source Procedure Growth Status 07/19/24 17:44 Urine - Midstream Clean Catch Urine Culture - Preliminary Resulted Problems(with codes): (1) UTI (urinary tract infection) (2) Bradycardia (3) Altered level of consciousness (4) Dehydration (5) Hydronephrosis (6) Sepsis (7) Failure to thrive (8) [id number] kidney injury (9) Acute exacerbation of CHF (congestive heart failure) Plan/Recommendation SOAP Note Encounter date: 07/19/2024 Patient Name: Manny Lopez Subjective: - Chief Complaint: Frequent urination and weakness. - Manny Lopez, a 78-year-old male, presents with a history of frequent urination every 15 minutes, often with a sensation to urinate but passing very little or none. He feels very weak, especially in his legs, and has difficulty walking. No current antibiotics. Blood pressure and glucose levels have been fluctuating. Recent ER visit provided a short course of antibiotics. ROS: - CONSTITUTIONAL: Denies weight loss, fever and chills. - HEENT: Denies changes in vision and hearing. - ?RESPIRATORY: Denies SOB and cough. - CV: Denies palpitations and CP. - GI: Denies abdominal pain, nausea, vomiting and diarrhea - : Denies dysuria and urinary frequency.++ - MSK: Denies myalgia and joint pain. - SKIN: Denies rash and pruritus. - ?NEUROLOGICAL: Denies headache and syncope. - PSYCHIATRIC: Denies recent changes in mood. Denies anxiety and depression. PHYSICAL EXAM: - GENERAL: Alert and oriented x 3. No acute distress. Well-nourished. - EYES: EOMI. Anicteric. - HENT: Moist mucous membranes. No scleral icterus. No cervical lymphadenopathy. - LUNGS: Clear to auscultation bilaterally. No accessory muscle use. - CARDIOVASCULAR: Regular rate and rhythm. No murmur. No JVD. - ABDOMEN: Soft, non-tender and non-distended. No palpable masses. - EXTREMITIES: No edema. Non-tender.?SKIN: No rashes or lesions. Warm. 2/5 in UE and LE generalized, poor parts person strength - NEUROLOGIC: No focal neurological deficits. CN II-XII grossly intact, but not individually tested. - PSYCHIATRIC: Cooperative. Appropriate mood and affect. Objective: - Vitals: - Blood Pressure: Low - Glucose: High (289 mg/dL) - Lab Results: - White Blood Cells: Normal - Hemoglobin: OK - Platelets: Normal - Creatinine: 1.32 (elevated from baseline) - Protein: 5.8 AST: 22 ALT: 16 - Urine: 3+ leukocytes, trace bacteria, moderate yeast; urine culture negative for significant growth. - Physical Exam: Notable weakness in legs, difficulty walking, low blood pressure. 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 - Prostate level slightly elevated: 6.3. - Informed that he has a pacemaker and is on blood thinners (possibly Warfarin). Assessment: 1. Possible urinary tract inflammation (suspected interstitial cystitis). 2. Acute weakness, especially in the legs. 3. Unstable vital signs, particularly concerning low blood pressure. Septic Shock 4. Elevated blood glucose levels suggesting poor glycemic control. 5. Risk of potential bladder or prostate conditions, considering patient history and slightly elevated prostate level. 6. General suspicion of systemic infection due to low blood pressure and leg weakness. Plan: 1. Immediate hospital admission for further workup and stabilization. 2. Initiate intravenous fluids to manage low BP and address potential dehydration. 3. Consider antifungal treatment due to the presence of yeast in urine. 4. Monitor kidney function due to elevated creatinine. 5. Comprehensive evaluation by a guncotton packer for pacemaker function and possible heart failure evaluation. 6. Monitor glucose levels closely and adjust antidiabetic medications as needed. 7. Rule out bladder and prostate cancer through relevant investigations. 8. Ensure follow-up on blood thinner management given the weak condition. Suggestions for ICD-10 and CPT Codes: ICD10: - R30.0 - Dysuria - R53.1 - Weakness - R73.9 - Hyperglycemia, unspecified - E11.9 - Type 2 diabetes mellitus without complications - I95.9 - Hypotension, unspecified - N30.90 - Cystitis, unspecified without hematuria - N40.0 - Enlarged prostate without lower urinary tract symptoms CPT: - 01913 - Glucose; quantitative, blood - 79462 - Complete Blood Count (CBC) with Differential - 71913 - Comprehensive Metabolic Panel (CMP) - 07873 - Urinalysis, automated, without microscopy - 17005 - Electrocardiogram, routine ECG with at least 12 leads Analytics Table: | Test | Result | Ref. Range | Comment | |-|-|-|-| | Blood Pressure | Low | 90/60 - 120/80 | Hypotensive | | Glucose | 289 mg/dL | < 100 mg/dL | Hyperglycemia | | Creatinine | 1.32 mg/dL | 0.74 - 1.35 mg/dL| Elevated | | Urine Leukocytes | 3+ | Negative | Significant inflammation | | Yeast in Urine | Present | None | Possible fungal infection | | White Blood Cell Count | Normal | 4.5 - 11.0 x10^9/L | No acute infection indicated | | Hemoglobin | OK | 13.5 - 17.5 g/dL| | | Platelets | Normal | 150 - 450 x10^9/L| | | Protein | 5.8 g/dL | 6.0 - 8.3 g/dL | Slightly low | | AST | 22 U/L | 10 - 40 U/L | Normal | | ALT | 16 U/L | 7 - 56 U/L | Normal | | Prostate-specific Antigen | 6.3 ng/mL | < 4.0 ng/mL | Slightly elevated | Provider: Bryce Beth Plan discussed with: Patient BRYCE BETH MD Jul 20, 2024 20:24"
--- NOTE | 2024-07-20 20:44 | DVHHP2 ---
Admitting Diagnosis: UTI, sepsis, Hypotension Patient Family History: Patient reports no known family medical history. Allergies: Coded Allergies: NO KNOWN ALLERGIES (Unverified , 10/14/23) Home Meds Reported Medications Potassium Chloride (Klor-Con M10) 10 Meq Tab, 1 TAB PO DAILY 11/24/23 Pantoprazole Sodium Sesquihydr (Protonix) 40 Mg Tab, 1 TAB PO DAILY 11/24/23 Carvedilol (Carvedilol) 12.5 Mg Tab, 1 TAB PO BID 11/24/23 Lovastatin (Lovastatin) 40 Mg Tab, 1 TAB PO DAILY, #30 TAB 5 Refills 10/15/23 Glipizide (Glipizide) 5 Mg Tab, 1 TAB PO BID 10/15/23 Finasteride (Finasteride) 5 Mg Tab, 5 MG PO DAILY for 30 Days, MG 10/15/23 Losartan Potassium (Losartan Potassium) 25 Mg Tab, 25 MG PO DAILY for 30 Days, MG 10/15/23 Tamsulosin Hcl (Tamsulosin Hcl) 0.4 Mg Cap, 0.4 MG PO QPM for 30 Days, MG 10/15/23 Digoxin (Digox) 125 Mcg Tab, 1 TAB PO DAILY 10/15/23 Metformin Hydrochloride (Metformin Hcl) 500 Mg Tab, 1 TAB PO BID 10/15/23 Current Medications Current Medications Medications (Trade) Dose Ordered Sig/Rudy Route PRN Reason Start Time Stop Time Status Last Admin Digoxin (Lanoxin Tablet) 0.125 mg DAILY PO 07/20/24 10:00 07/20/24 11:51 Finasteride (Proscar Tablet) 5 mg DAILY PO 07/20/24 10:00 07/20/24 11:50 Glipizide (Glucotrol Tablet) 5 mg BID PO 07/19/24 22:00 07/20/24 11:54 Pantoprazole Sodium (Protonix Tablet) 40 mg DAILY PO 07/20/24 10:00 07/20/24 11:50 Insulin Human Lispro (HumaLOG) AC SC 07/20/24 07:00 07/20/24 17:08 Insulin Human Lispro (HumaLOG) HS SC 07/19/24 22:00 07/19/24 22:31 Piperacillin Sod/ Tazobactam Sod 100 ml @ 25 mls/hr Q8HR IV 07/20/24 14:00 07/20/24 14:14 Vital Signs Vital Signs Date Time Temp Pulse Resp B/P (MAP) Pulse Ox O2 Delivery O2 Flow Rate FiO2 07/20/24 17:00 98.3 67 17 128/60 (82) 98 98.3 07/20/24 00:00 Nasal Cannula* 2 28 Results Labs Test 07/20/24 16:59 07/20/24 04:29 07/19/24 17:44 07/19/24 13:06 Range/Units POC Glucose 276 H 70-106 mg/dl White Blood Count 9.5 4.4-10.8 10^3/uL Red Blood Count 4.29 L 4.5-5.90 10^6/uL Hemoglobin 12.1 L 13.5-17.5 g/dL Hematocrit 37.4 L 41.0-53.0 % Mean Corpuscular Volume 87.1 80.0-100.0 fL Mean Corpuscular Hemoglobin 28.2 28.0-32.0 pg Mean Corpuscular Hemoglobin Concent 32.3 32.0-36.0 g/dL Red Cell Distribution Width 16.5 H 11.8-14.3 % Platelet Count 247 140-450 10^3/uL Mean Platelet Volume 7.1 6.9-10.8 fL Neutrophils (%) (Auto) 37.0-80.0 % Lymphocytes (%) (Auto) 10.0-50.0 % Monocytes (%) (Auto) 0.0-12.0 % Basophils (%) (Auto) 0.0-2.0 % Neutrophils # (Auto) 1.6-8.6 10 ^3/uL Lymphocytes # (Auto) 0.4-5.4 10 ^3/uL Monocytes # (Auto) 0-1.3 10 ^3/uL Differential Total Cells Counted 100.0 100 Neutrophils % (Manual) 64 37.0-80.0 Band Neutrophils % (Manual) 5 Lymphocytes % (Manual) 13 10.0-50.0 Monocytes % (Manual) 10 0-12 Eosinophils % (Manual) 6 0-7 Basophils % (Manual) 0 0.0-2.0 Metamyelocytes % (manual) 1 Myelocytes % (Manual) 1 Promyelocytes % (Manual) 0 Blast Cells % (Manual) 0 Reactive Lymphocytes 0 Platelet Estimate Adequate Anisocytosis (manual) Slight Schistocytes Few Sodium Level 145 # 136-145 mmol/L Potassium Level 3.6 3.5-5.1 mmol/L Chloride Level 108 H 98-107 mmol/L Carbon Dioxide Level 30 20-31 mmol/L Anion Gap 7 5-15 Blood Urea Nitrogen 64 #H 9-23 mg/dL Creatinine 1.77 H 0.700-1.30 mg/dL Glomerular Filtration Rate Calc 39 >90 mL/min BUN/Creatinine Ratio 36.2 H 10.0-20.0 Serum Glucose 81 # 74-106 mg/dL Calcium Level 9.7 8.7-10.4 mg/dL Magnesium Level 1.9 1.6-2.6 mg/dL Total Bilirubin 0.3 0.2-1.0 mg/dL Aspartate Amino Transferase (AST) 25 13-40 U/L Alanine Aminotransferase (ALT) 15 7-40 U/L Alkaline Phosphatase 91 46-116 U/L Total Protein 5.6 L 5.7-8.2 g/dL Albumin 3.8 3.2-4.8 g/dL Digoxin Level 1.66 0.8-2 ng/mL Urine Color Brown H Yellow Urine Clarity Ex.turbid Clear Urine pH 5.5 5.0-9.0 Urine Specific [place] 1.011 1.001-1.035 Urine Protein 1+ H Negative Urine Ketones Negative Negative Urine Blood 2+ H Negative /uL Urine Nitrite Negative Negative Urine Bilirubin Negative Negative Urine Urobilinogen Normal Negative mg/dL Urine Leukocyte Esterase 3+ Negative /uL Urine RBC 69 0 - 3 /hpf Urine WBC 3652 0 - 3 /hpf Urine WBC Clumps Present None Seen /hpf Urine Squamous Epithelial Cells None seen <5 /hpf Urine Bacteria None seen None Seen /hpf Urine Yeast (Budding) Moderate None Seen /hpf Urine Glucose Normal Normal mg/dL Hemoglobin A1c 8.9 H <5.7 % A1C Phosphorus Level 3.8 2.4-5.1 mg/dL Troponin I High Sensitivity 21 </=54 ng/L Triglycerides Level 164 H < 150 mg/dL Cholesterol Level 122 < 200 mg/dL LDL Cholesterol 54 < 100 mg/dL HDL Cholesterol 36 L 40-59 mg/dL Microbiology Date/Time Source Procedure Growth Status 07/19/24 20:30 Blood Blood Culture - Preliminary NO GROWTH AFTER 24 HOURS OF INCUBATION. Resulted 07/19/24 17:44 Urine - Midstream Clean Catch Urine Culture - Preliminary Resulted Admitting Diagnosis: Problems(with codes): (1) UTI (urinary tract infection) (2) Bradycardia (3) Altered level of consciousness (4) Dehydration (5) Hydronephrosis (6) Sepsis (7) Failure to thrive (8) Qvetc-wc-tpnyfuk kidney injury (9) Acute exacerbation of CHF (congestive heart failure) EMY THOMAS MD Jul 20, 2024 20:44
--- NOTE | 2024-07-20 20:49 | DVHPN2 ---
Progress Note - Dictate Date Seen: Jul 20, 2024 vital signs Vital Sign Date Time Temp Pulse Resp B/P (MAP) Pulse Ox O2 Delivery O2 Flow Rate FiO2 07/20/24 17:00 98.3 67 17 128/60 (82) 98 98.3 07/20/24 00:00 Nasal Cannula* 2 28 Total Intake and Output 07/19/24 07/19/24 07/20/24 15:00 23:00 07:00 Intake Total 75 ml 700 ml Balance 75 ml 700 ml medications Current Medications Medications Dose Ordered Sig/Rudy Route Start Time Stop Time Status Last Admin Dose Admin Nitroglycerin 0.4 mg Q5MINP PRN SL 07/19/24 19:00 Morphine Sulfate 2 mg Q30M PRN IV 07/19/24 19:00 Digoxin 0.125 mg DAILY PO 07/20/24 10:00 07/20/24 11:51 0.125 MG Finasteride 5 mg DAILY PO 07/20/24 10:00 07/20/24 11:50 5 MG Glipizide 5 mg BID PO 07/19/24 22:00 07/20/24 11:54 5 MG Pantoprazole Sodium 40 mg DAILY PO 07/20/24 10:00 07/20/24 11:50 40 MG Insulin Human Lispro AC SC 07/20/24 07:00 07/20/24 17:08 7 UNITS Insulin Human Lispro HS SC 07/19/24 22:00 07/19/24 22:31 4 UNITS Piperacillin Sod/ Tazobactam Sod 100 ml @ 25 mls/hr Q8HR IV 07/20/24 14:00 07/20/24 14:14 25 MLS/HR laboratory and microbiology Laboratory Tests 07/20/24 04:29 Test 07/20/24 04:29 Range/Units Serum Glucose 81 # 74-106 mg/dL Assessment/Plan Problems(with codes): (1) UTI (urinary tract infection) (2) Bradycardia (3) Altered level of consciousness (4) Dehydration (5) Hydronephrosis (6) Sepsis (7) Failure to thrive (8) Xtwtq-xn-zgwflwz kidney injury (9) Acute exacerbation of CHF (congestive heart failure) EMY THOMAS MD Jul 20, 2024 20:49
--- NOTE | 2024-07-20 21:27 | DVHPN2 ---
Consult Progress Note Date Seen: Jul 20, 2024 Subjective Patient reports: Feels better (feels better after fluid and blood pressure improving to 140/68 , rate 59. Strength is somewhat improved 3/5 in upper extremities and 2/5 in lower extremities. ) Objective vital signs Vital Sign Date Time Temp Pulse Resp B/P (MAP) Pulse Ox O2 Delivery O2 Flow Rate FiO2 07/20/24 17:00 98.3 67 17 128/60 (82) 98 98.3 07/20/24 00:00 Nasal Cannula* 2 28 Total Intake and Output 07/19/24 07/19/24 07/20/24 15:00 23:00 07:00 Intake Total 75 ml 700 ml Balance 75 ml 700 ml medications Current Medications Medications Dose Ordered Sig/Rudy Route Start Time Stop Time Status Last Admin Dose Admin Nitroglycerin 0.4 mg Q5MINP PRN SL 07/19/24 19:00 Morphine Sulfate 2 mg Q30M PRN IV 07/19/24 19:00 Digoxin 0.125 mg DAILY PO 07/20/24 10:00 07/20/24 11:51 0.125 MG Finasteride 5 mg DAILY PO 07/20/24 10:00 07/20/24 11:50 5 MG Glipizide 5 mg BID PO 07/19/24 22:00 07/20/24 11:54 5 MG Pantoprazole Sodium 40 mg DAILY PO 07/20/24 10:00 07/20/24 11:50 40 MG Insulin Human Lispro AC SC 07/20/24 07:00 07/20/24 17:08 7 UNITS Insulin Human Lispro HS SC 07/19/24 22:00 07/19/24 22:31 4 UNITS Piperacillin Sod/ Tazobactam Sod 100 ml @ 25 mls/hr Q8HR IV 07/20/24 14:00 07/20/24 14:14 25 MLS/HR PHYSICAL EXAM: - GENERAL: Alert and oriented x 3. No acute distress. Well-nourished. - EYES: EOMI. Anicteric. - HENT: Moist mucous membranes. No scleral icterus. No cervical lymphadenopathy. - LUNGS: Clear to auscultation bilaterally. No accessory muscle use. - CARDIOVASCULAR: Regular rate and rhythm. No murmur. No JVD. - ABDOMEN: Soft, non-tender and non-distended. No palpable masses. - EXTREMITIES: No edema. Non-tender.?SKIN: No rashes or lesions. Warm. 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 CN II-XII grossly intact, but not individually tested. - PSYCHIATRIC: Cooperative. Appropriate mood and affect. laboratory and microbiology Laboratory Tests 07/20/24 04:29 Test 07/20/24 04:29 Range/Units Serum Glucose 81 # 74-106 mg/dL Problem List/Assessment/Plan Problems(with codes): (1) UTI (urinary tract infection) (2) Altered level of consciousness (3) Acute exacerbation of CHF (congestive heart failure) (4) Euaoa-up-ocnmddg kidney injury (5) Sepsis (6) Bradycardia (7) Hydronephrosis (8) Dehydration (9) Hypotension (10) Septic shock Problem List/Assessment/Plan (1) UTI (urinary tract infection) (2) Bradycardia (3) Altered level of consciousness (4) Dehydration (5) Hydronephrosis (6) Sepsis (7) Failure to thrive (8) Yurmt-ij-hfmebuh kidney injury (9) Acute exacerbation of CHF (congestive heart failure) (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 He feels very weak, especially in his legs, and has difficulty walking. No current antibiotics. Blood pressure and glucose levels have been fluctuating. Recent ER visit provided a short course of antibiotics. 1. Possible urinary tract inflammation (suspected interstitial cystitis). 2. Acute weakness, especially in the legs. 3. Unstable vital signs, particularly concerning low blood pressure. Septic Shock 4. Elevated blood glucose levels suggesting poor glycemic control. 5. Risk of potential bladder or prostate conditions, considering patient history and slightly elevated prostate level. 6. General suspicion of systemic infection due to low blood pressure and leg weakness. 07/20: Urine cultures are showing young colonies ,awaiting blood cultures. 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 Appears large heterogeneous correlated with PSA recommended small urinary bladder diverticula. Plan: - recommend urology consult for bilateral hydron nephrosis as well as for prostatamegaly - consider nephrology consult for [facility] consult for heart failure evaluation - follow up on blood cultures - Check PSA level 1.Start zosyn while awaiting cultures to finalize to cover for broad UTI 2. Initiate intravenous fluids to manage low BP and address potential dehydration. 3. Can stop antifungal treatment , low suspicion at this time until further evaluation of the bladder 4. Monitor kidney function due to elevated creatinine. 5. Comprehensive evaluation by a warm in for pacemaker function and possible heart failure evaluation. 6. Monitor glucose levels closely and adjust antidiabetic medications as needed. 7. Rule out bladder and prostate cancer through relevant investigations. 8. Ensure follow-up on blood thinner management given the weak condition. Plan discussed with: BRYCE Zhang MD Jul 20, 2024 21:27
[2024-07-21] VITALS (8 sets, daily range): BP systolic 120–135; BP diastolic 59–69; PULSE 57–86; RESP 16–18; TEMP 97.7–98.7; O2SAT 95–98
--- NOTE | 2024-07-21 04:01 | DVH ---
CHEST RADIOGRAPH Indication:evaluate for cardiomegaly, edema vs pneumonia Technique: Single frontal view of the chest was obtained Comparison: XY CHEST PORTABLE on DOS: 02/13/24, XY CHEST PORTABLE on DOS: 02/12/24, XY CHEST PORTABLE on DOS: 11/26/23, XY CHEST PORTABLE on DOS: 11/22/23, XY CHEST PORTABLE on DOS: 10/14/23 FINDINGS: Lines and Tubes: Left-sided pacemaker Lungs: Increased pulmonary edema Pleura: No effusion. No pneumothorax. Cardiomediastinal contours: Cardiomegaly Bones: No acute osseous abnormality. IMPRESSION: Cardiomegaly mild CHF.
--- NOTE | 2024-07-21 04:11 | DVH ---
EXAM: CT HEAD WITHOUT CONTRAST INDICATION: evaluate for bleed or stroke TECHNIQUE: CT of the head without intravenous contrast. Radiation Dose Information: CT Dose: CTDI volume is 25 mGy. Dose-length product is 250 mGy*cm The dose indicators for CT are the volume Computed Tomography (CT) Dose Index (CTDIvol) and the Dose Length Product (DLP), and are measured in units of mGy and mGy-cm, respectively. These indicators are not patient dose, but values generated from the CT scanner acquisition factors. The report includes radiation exposure data for exposures received during this examination. COMPARISON: CT HEAD WITHOUT CONTRAST on DOS: 02/13/24, CT HEAD WITHOUT CONTRAST on DOS: 11/22/23, CT HEA D WITHOUT CONTRAST on DOS: 10/14/23 FINDINGS: There is no evidence of acute intracranial hemorrhage, extra-axial collection, mass effect, midline s hift, herniation or hydrocephalus. Atrophy with periventricular leukoencephalopathy consistent with chronic ischemic small vessel diseas e. 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 The ventricles, sulci and cisterns are age appropriate. The llamas-white differentiation is intact. Patchy periventricular and subcortical white matter hypoattenuation is nonspecific but may be related to small vessel ischemic disease. The visualized paranasal sinuses and mastoid air cells are clear. The surrounding soft tissues and osseous structures are unremarkable. IMPRESSION: No acute intracranial abnormality.
[2024-07-21 05:41] LABS: Hemoglobin 12.1 g/dL (13.5-17.5); Mean Corpuscular Hemoglobin 28.3 pg (28.0-32.0); Mean Corpuscular Hgb Conc. 32.7 g/dL (32.0-36.0); Mean Corpuscular Volume 86.5 fL (80.0-100.0); Platelet Count (auto) 227 10^3/uL (140-450); Red Blood Cells 4.27 10^6/uL (4.5-5.90); Red Cell Distribution Width 16.3 % (11.8-14.3); White Blood Cell 8.7 10^3/uL (4.4-10.8)
[2024-07-21 05:56] LABS: Basophils % (manual) 0 (0.0-2.0); Blast Cells 0; Metamyelocytes % 0; Myelocytes % 0; Promyelocytes % 0; Reactive Lymphocytes 0
[2024-07-21 06:57] LABS: Albumin 3.4 g/dL (3.2-4.8); Alkaline Phosphatase 82 U/L (46-116); Anion Gap 8 (5-15); Aspartate Aminotransferase 23 U/L (13-40); BUN/Creatinine Ratio 30.6 (10.0-20.0); Calcium 9.5 mg/dL (8.7-10.4); Carbon Dioxide 27 mmol/L (20-31); Chloride 106 mmol/L (98-107); Glucose 159 mg/dL (74-106); Potassium 3.8 mmol/L (3.5-5.1); Sodium 141 mmol/L (136-145)
[2024-07-21 06:58] LABS: Bilirubin, Total 0.4 mg/dL (0.2-1.0); Total Protein 5.3 g/dL (5.7-8.2)
[2024-07-21 07:01] LABS: Band Neutrophils % (manual) 2; Eosinophils % (manual) 6 (0-7); Lymphocytes % (manual) 17 (10.0-50.0); Monocytes % (manual) 10 (0-12); Platelet Estimate Adequate
[2024-07-21 07:06] LABS: Alanine Aminotransferase 11 U/L (7-40)
[2024-07-21 07:07] LABS: Blood Urea Nitrogen 53 mg/dL (9-23)
--- NOTE | 2024-07-21 08:37 | DVH ---
CT ABDOMEN AND PELVIS WITHOUT CONTRAST CLINICAL HISTORY: hydronephrosis TECHNIQUE: Multidetector CT of the abdomen was performed from lung bases to pubic symphysis. Imaging was performed without IV contrast. Axial, coronal and sagittal multiplanar reformats were obtained fr om the axial data set by the technologist. Radiation optimization: All CT scans at this facility use at least one of these dose optimization blanca hniques: automated exposure control mA and/or kV adjustment per patient size (includes targeted exam s where dose is matched to clinical indication) or iterative reconstruction. Radiation Dose Information: CT Dose: CTDI volume is 5.53 mGy. Dose-length product is 264.0 mGy*cm Comparison: CT CT AB PEL WO CON-NO ORAL OR IV on DOS: 02/12/24, CT CT AB PEL WO CON-NO ORAL OR IV on DO S: 12/01/23 FINDINGS: Evaluation of the abdominal viscera is limited without intravenous contrast. There are cystic structures along the left and right posterolateral gibbons of the bladder, left larger than right, which may represent ureteroceles versus bladder diverticula. This measures 3.0 x 3.2 cm on the left. There is moderate left hydroureter. There is mild right hydroureter. There is no evidenc e of a ureteral calculus. The bladder demonstrates circumferential wall thickening which May relate to chronic bladder outlet o bstruction. There is marked prostatomegaly. There is moderate to severe left renal hydronephrosis. There is mild dilatation of the right renal co llecting system. There is no evidence of nephro lithiasis. There are few scattered small hepatic cysts. The gallbladder, pancreas, adrenal glands, and spleen appear within normal limits. There is no gross evidence of abdominal lymphadenopathy. There is no free fluid or free air. The stomach grossly appears unremarkable. The small and large bowel loops demonstrate normal caliber. There are calcified atherosclerotic changes in the abdominal aorta. The IVC appears within normal crockett its. There is no gross evidence of a pelvic mass or lymphadenopathy. There is no free fluid collection. There is scarring versus atelectasis in the posterior lung bases. There is mild cardiomegaly. There is no acute osseous abnormality. IMPRESSION: 1. There are cystic structures along the left and right posterolateral gibbons of the bladder, left lar aure than right. These may represent ureteroceles versus bladder diverticula.. 2. There is moderate left and mild right hydroureter. There is no evidence of a ureteral calculus. 3. Moderate to severe left renal hydronephrosis and mild dilatation of the right renal collecting sys tem. There is no evidence of nephrolithiasis. 4. Marked prostatomegaly. Bladder demonstrates circumferential wall thickening which May relate to ch ronic bladder outlet obstruction. HS:Y
[2024-07-21] MEDS ORDERED: AMLO1TAB23 PO (09:38)
[2024-07-21] MEDS ORDERED: INSU100I27 SC (09:38)
[2024-07-21] MEDS ORDERED: WARF-110 PO (09:38)
[2024-07-21] MEDS ORDERED: INSU1INJ19 SC (09:38)
--- NOTE | 2024-07-21 13:05 | DVH ---
MRI BRAIN WITHOUT CONTRAST CLINICAL HISTORY: CVA TECHNIQUE: Multiplanar, multisequence MR images of the brain without intravenous contrast. Comparison: CT HEAD WITHOUT CONTRAST on DOS: 07/21/24, CT HEAD WITHOUT CONTRAST on DOS: 02/13/24 FINDINGS: The MR images are degraded by motion artifact, particularly the axial FLAIR images. There is no restr icted diffusion. There is age concordant generalized parenchymal volume loss. There are patchy and co nfluence hyperintense T2 signal changes in the supratentorial white matter likely related to mild-to- moderate chronic microvascular ischemic changes. There are likely small chronic infarcts in the left cerebellum, right colette, bilateral thalami and possibly in the bilateral basal ganglia. There is no ev idence of acute hemorrhage, mass, mass effect or midline shift. There is no hydrocephalus or extra-ax ial fluid collection. The visualized intracranial vasculature demonstrates appropriate flow-voids. Th e sagittal midline structures appear unremarkable. The craniocervical junction is within normal limit s. The calvarium demonstrates normal marrow signal. There is a 2.2 x 1.4 cm oval hyperintense T2 stru cture in the right posterior nasal cavity which may represent a retention cyst versus polyp. There is mucosal thickening in the ethmoid air cells and maxillary sinuses. There is trace fluid in the masto id air cells. IMPRESSION: 1. There is no acute intracranial process. 2. Chronic ischemic changes as described above. 3. 2.2 cm oval hyperintense T2 structure in the right posterior nasal cavity may represent a retentio n cyst versus polyp. HS:Y
--- NOTE | 2024-07-21 15:42 | DVHSR ---
APPROVED REPORT EXAM: Two-dimensional and M-mode echocardiogram with Doppler and color Doppler. Blood Pressure: 123/63 mmHg INDICATION Heart Failure Surgery/Intervention Valve Replacement: Type: AV RISK FACTORS Height: 5'1", Weight: 122 DIMENSIONS LVDd4.4 (3.8-5.7cm)LA (2D)4.3 (1.9-4.0cm)Aortic Root (2.0-3.7cm) LVDs2.8 (2.5-4.0cm)LA (MM) (1.9-4.0cm)Aortic Cusp Exc (1.5-2.0cm) EF (%) 66.0 (55-70%)Rt. Atrium5.1 (1.9-4.0cm)Asc. Aorta3.4 cm IVSd1.3 (0.7-1.1cm)RV (D)3.2 (1.8-2.4cm) PWd1.1 (0.7-1.1cm) Mitral Valve MitralMitral Stenosis E wave1.21m/sMV Mean GR.mmHg E/A ratio0.02D MVAcm2 Aortic Valve Aortic ValveAortic Stenosis V10.68m/Nan Mean GR.4mmHg V21.24m/Nan Peak GR.6mmHg LVOT Diameter2.1 (1.8-2.4cm)Doppler AVA1.90cm2 AI P 1/2 Hlve130.79ms Pulmonic Valve V20.90m/s Tricuspid Valve TR Velocity2.78m/s [id number] Other Information Quality : Technically LimitedRhythm : Technically limited study due to body habitus. Conclusion Normal left ventricular size and dimension. Normal left ventricular systolic function estimated ejec tion fraction 60%. There is a grade 1 diastolic dysfunction. Normal right ventricular size and dimension. Normal right ventricular systolic function. Mild-to-mo derately elevated right ventricular systolic pressure at 40 mm of mercury Mildly dilated right and left atria. Zuoo-mh-zvwslfby mitral valve regurgitation. Mild aortic valve sclerosis. Mild tricuspid valve regurgitation. Pulmonary valve is grossly normal. No pericardial effusion.
--- NOTE | 2024-07-21 16:06 | DVHPN2 ---
Consult Progress Note Date Seen: Jul 21, 2024 Subjective Patient reports: Feels better (BP and weakness improved) Objective vital signs Vital Sign Date Time Temp Pulse Resp B/P (MAP) Pulse Ox O2 Delivery O2 Flow Rate FiO2 07/21/24 12:58 97.9 77 18 124/64 (84) 95 97.9 07/21/24 08:00 Room Air* 0 21 Total Intake and Output 07/20/24 07/20/24 07/21/24 15:00 23:00 07:00 Intake Total 425 ml 700 ml 460 ml Output Total 900 ml Balance 425 ml 700 ml -440 ml medications Current Medications Medications Dose Ordered Sig/Rudy Route Start Time Stop Time Status Last Admin Dose Admin Nitroglycerin 0.4 mg Q5MINP PRN SL 07/19/24 19:00 Morphine Sulfate 2 mg Q30M PRN IV 07/19/24 19:00 Digoxin 0.125 mg DAILY PO 07/20/24 10:00 07/21/24 10:51 0.125 MG Finasteride 5 mg DAILY PO 07/20/24 10:00 07/21/24 10:52 5 MG Glipizide 5 mg BID PO 07/19/24 22:00 07/21/24 11:00 5 MG Pantoprazole Sodium 40 mg DAILY PO 07/20/24 10:00 07/21/24 10:52 40 MG Insulin Human Lispro AC SC 07/20/24 07:00 07/21/24 11:10 12 UNITS Insulin Human Lispro HS SC 07/19/24 22:00 07/20/24 22:00 4 UNITS Piperacillin Sod/ Tazobactam Sod 100 ml @ 25 mls/hr Q8HR IV 07/20/24 14:00 07/21/24 14:32 25 MLS/HR Physical Exam: - General: NAD - Neck: Supple. No masses. - HEENT: PERRL. Normal lids and conjunctiva. Moist mucous membranes. Oropharynx without lesions, exudates or excessive erythema. Normal appearance of the external aspects of the nose and ears. - Heart: Regular rhythm, normal rate. No murmur. No lower extremity edema. - Lungs: Normal respiratory effort. Clear to auscultation bilaterally. No wheezes. No crackles. - Abdomen: Soft. Non-tender. Non-distended. No masses or abdominal hernia. - Msk: No digital cyanosis. Normal strength and tone in all 4 limbs - Skin: Warm and dry, no rashes. - Neuro: Alert. No facial droop or slurred speech. Extra-ocular movements intact. Sensation intact to soft touch in all 4 limbs. - Psych: Appropriate mood. Full affect. Oriented to person, place, time, and situation. 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 He feels very weak, especially in his legs, and has difficulty walking. No current antibiotics. Blood pressure and glucose levels have been fluctuating. Recent ER visit provided a short course of antibiotics. 1. Possible urinary tract inflammation (suspected interstitial cystitis). 2. Acute weakness, especially in the legs. 3. Unstable vital signs, particularly concerning low blood pressure. Septic Shock 4. Elevated blood glucose levels suggesting poor glycemic control. 5. Risk of potential bladder or prostate conditions, considering patient history and slightly elevated prostate level. 6. General suspicion of systemic infection due to low blood pressure and leg weakness. 07/20: Urine cultures are showing young colonies ,awaiting blood cultures. 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 Appears large heterogeneous correlated with PSA recommended small urinary bladder diverticula. 07/21: brain CT and MRI negative for stroke. and TTE w/ grade 1 diastolic dysfunction Plan: - recommend urology consult for bilateral hydronephrosis as well as for prostatomegaly , pyuria and brown urine - consider nephrology consult for [facility] consult for heart failure evaluation - grade 1 diastolic dysfunction - follow up on blood cultures - Check PSA level 1.Start zosyn while awaiting cultures to finalize to cover for broad UTI 2. Initiate intravenous fluids to manage low BP and address potential dehydration. 4. Monitor kidney function due to elevated creatinine. 6. Monitor glucose levels closely and adjust antidiabetic medications as needed. 7. Rule out bladder and prostate cancer through relevant investigations. 8. Ensure follow-up on blood thinner management given the weak condition. Plan discussed with: Patient BRYCE THOMAS MD Jul 21, 2024 16:06
--- NOTE | 2024-07-21 18:18 | DVHINCON2 ---
Date of service: Jul 21, 2024 Referring Physician Hospitalist Reason for Consultation hydronephrosis History of Present Illness History Source: RN Notes, MD Notes Exam Limitations: No limitations HPI 78 yo male presented to ER with c/o generalized weakness. He mentions frequency of urination, incomplete bladder emptying and dysuria. Home Meds Reported Medications Insulin Lispro (Admelog Solostar) 100 Unit/Ml Inj, 4 UNIT SC AC, INJ 07/21/24 Insulin Glargine (Basaglar Kwikpen) 100 Unit/Ml Inj, 10 UNIT SC DAILY, INJ 07/21/24 Furosemide (Furosemide) 40 Mg Tab, 40 MG PO DAILY 07/21/24 Amlodipine Besylate (Amlodipine Besylate) 10 Mg Tab, 10 MG PO DAILY, TAB 07/21/24 Warfarin Sodium (Warfarin Sodium) 2.5 Mg Tab, 2.5 MG PO DAILY, MG 07/21/24 Potassium Chloride (Klor-Con M10) 10 Meq Tab, 1 TAB PO DAILY 11/24/23 Pantoprazole Sodium Sesquihydr (Protonix) 40 Mg Tab, 1 TAB PO DAILY 11/24/23 Carvedilol (Carvedilol) 12.5 Mg Tab, 1 TAB PO BID 11/24/23 Lovastatin (Lovastatin) 40 Mg Tab, 1 TAB PO DAILY, #30 TAB 5 Refills 10/15/23 Glipizide (Glipizide) 5 Mg Tab, 1 TAB PO BID 10/15/23 Finasteride (Finasteride) 5 Mg Tab, 5 MG PO QPM for 30 Days, MG 10/15/23 Losartan Potassium (Losartan Potassium) 25 Mg Tab, 25 MG PO DAILY for 30 Days, MG 10/15/23 Tamsulosin Hcl (Tamsulosin Hcl) 0.4 Mg Cap, 0.4 MG PO QPM for 30 Days, MG 10/15/23 Digoxin (Digox) 125 Mcg Tab, 1 TAB PO DAILY 10/15/23 Metformin Hydrochloride (Metformin Hcl) 500 Mg Tab, 1 TAB PO BID 10/15/23 Past Medical History Patient Family History: Patient reports no known family medical history. Review of Systems Constitutional: Weakness Genitourinary: Dysuria, Frequency, Retention H&P Exam Vital Signs Vital Signs Date Time Temp Pulse Resp B/P (MAP) Pulse Ox O2 Delivery O2 Flow Rate FiO2 07/21/24 16:52 97.7 68 16 129/59 (82) 98 97.7 07/21/24 08:00 Room Air* 0 21 Labs/Xrays [address] [address] Ph: [phone] DIAGNOSTIC IMAGING Diagnostic Imaging Report : [id number] Signed PATIENT: RENATA RAMIREZCCT: [id number] UNIT: [id number] : 1945 LOC: TELE ROOM / BED: [address] [place] [address] AGE / SEX: 78 / M ADM STATUS: ADM IN SERVICE 25 ORDERING PHYSICIAN: EMY THOMAS MD PROCEDURE(s): KIDUS - KIDNEY REASON: ARF- R/O Hydronephrosis ORDER NUMBER(s): [id number], ACCESSION NUMBER(s): [id number] INDICATION: Acute renal failure. TECHNIQUE: Multiple real-time sonographic images of the kidneys and bladder were obtained. COMPARISON: None FINDINGS: RIGHT kidney measures 10.4 cm in length. Mild hydronephrosis. Nephrolithiasis. Increased echogenicity. Cyst measuring 1.4 cm. LEFT kidney measures 14.7 cm in length. Moderate to severe hydronephrosis. Dilated left ureter. No large intraluminal masses are seen in the bladder. Prevoid urinary bladder volume 158 mL. Urinary bladder wall thickening measuring 20 mm. Layering debris within the urinary bladder. Lobulated and heterogeneous prostate. Small urinary bladder diverticula. IMPRESSION: Mild right and moderate to severe left hydronephrosis. Increased echogenicity in the right kidney concerning for medical renal disease. Urinary bladder wall thickening with layering of debris concerning for infectious process. The prostate appears enlarged and heterogeneous. Correlation with PSA recommended. Small urinary bladder diverticula. ATED BY: RAQUEL PHILLIPS DO DICTATED DATE/TIME: 07/19/242046 SIGNED BY: RAQUEL PHILLIPS DO SIGNED DATE/TIME: 07/19/242046 CC: [address] [address] Ph: [phone] DIAGNOSTIC IMAGING Diagnostic Imaging Report : [id number] Signed PATIENT: RENATA RAMIREZCCT: [id number] UNIT: [id number] : 1945 LOC: TELE-CENTR ROOM / BED: 0223T / A AGE / SEX: 78 / M ADM STATUS: ADM IN SERVICE 0732 ORDERING PHYSICIAN: CELINE CARRERO NP PROCEDURE(s): ABPL - CT AB PEL WO CON-NO ORAL OR IV REASON: hydronephrosis ORDER NUMBER(s): [id number], ACCESSION NUMBER(s): [id number] CT ABDOMEN AND PELVIS WITHOUT CONTRAST CLINICAL HISTORY: hydronephrosis TECHNIQUE: Multidetector CT of the abdomen was performed from lung bases to pubic symphysis. Imaging was performed without IV contrast. Axial, coronal and sagittal multiplanar reformats were obtained from the axial data set by the technologist. Radiation optimization: All CT scans at this facility use at least one of these dose optimization techniques: automated exposure control mA and/or kV adjustment per patient size (includes targeted exams where dose is matched to clinical indication) or iterative reconstruction. Radiation Dose Information: CT Dose: CTDI volume is 5.53 mGy. Dose-length product is 264.0 mGy*cm Comparison: CT CT AB PEL WO CON-NO ORAL OR IV on DOS: 02/12/24, CT CT AB PEL WO CON-NO ORAL OR IV on DOS: 12/01/23 FINDINGS: Evaluation of the abdominal viscera is limited without intravenous contrast. There are cystic structures along the left and right posterolateral gibbons of the bladder, left larger than right, which may represent ureteroceles versus bladder diverticula. This measures 3.0 x 3.2 cm on the left. There is moderate left hydroureter. There is mild right hydroureter. There is no evidence of a ureteral calculus. The bladder demonstrates circumferential wall thickening which May relate to c hronic bladder outlet obstruction. There is marked prostatomegaly. There is moderate to severe left renal hydronephrosis. There is mild dilatation of the right renal collecting system. There is no evidence of nephro lithiasis. There are few scattered small hepatic cysts. The gallbladder, pancreas, adrenal glands, and spleen appear within normal limits. There is no gross evidence of abdominal lymphadenopathy. There is no free fluid or free air. The stomach grossly appears unremarkable. The small and large bowel loops demonstrate normal caliber. There are calcified atherosclerotic changes in the abdominal aorta. The IVC appe ars within normal limits. There is no gross evidence of a pelvic mass or lymphadenopathy. There is no free fluid collection. There is scarring versus atelectasis in the posterior lung bases. There is mild cardiomegaly. There is no acute osseous abnormality. IMPRESSION: 1. There are cystic structures along the left and right posterolateral gibbons of the bladder, left larger than right. These may represent ureteroceles versus bladder diverticula.. 2. There is moderate left and mild right hydroureter. There is no evidence of a ureteral calculus. 3. Moderate to severe left renal hydronephrosis and mild dilatation of the right renal collecting system. There is no evidence of nephrolithiasis. 4. Marked prostatomegaly. Bladder demonstrates circumferential wall thickening which May relate to chronic bladder outlet obstruction. HS:Y ATED BY: SHIN NICOLE MD DICTATED DATE/TIME: 07/21/24834 SIGNED BY: SHIN NICOLE MD SIGNED DATE/TIME: 07/21/24834 CC: Labs Test 07/21/24 11:00 07/21/24 05:05 07/20/24 04:29 07/19/24 17:44 Range/Units POC Glucose 362 H 70-106 mg/dl White Blood Count 8.7 4.4-10.8 10^3/uL Red Blood Count 4.27 L 4.5-5.90 10^6/uL Hemoglobin 12.1 L 13.5-17.5 g/dL Hematocrit 37.0 L 41.0-53.0 % Mean Corpuscular Volume 86.5 80.0-100.0 fL Mean Corpuscular Hemoglobin 28.3 28.0-32.0 pg Mean Corpuscular Hemoglobin Concent 32.7 32.0-36.0 g/dL Red Cell Distribution Width 16.3 H 11.8-14.3 % Platelet Count 227 140-450 10^3/uL Mean Platelet Volume 7.4 6.9-10.8 fL Neutrophils (%) (Auto) 37.0-80.0 % Lymphocytes (%) (Auto) 10.0-50.0 % Monocytes (%) (Auto) 0.0-12.0 % Basophils (%) (Auto) 0.0-2.0 % Neutrophils # (Auto) 1.6-8.6 10 ^3/uL Lymphocytes # (Auto) 0.4-5.4 10 ^3/uL Monocytes # (Auto) 0-1.3 10 ^3/uL Differential Total Cells Counted 100.0 100 Neutrophils % (Manual) 65 37.0-80.0 Band Neutrophils % (Manual) 2 Lymphocytes % (Manual) 17 10.0-50.0 Monocytes % (Manual) 10 0-12 Eosinophils % (Manual) 6 0-7 Basophils % (Manual) 0 0.0-2.0 Metamyelocytes % (manual) 0 Myelocytes % (Manual) 0 Promyelocytes % (Manual) 0 Blast Cells % (Manual) 0 Reactive Lymphocytes 0 Platelet Estimate Adequate Sodium Level 141 136-145 mmol/L Potassium Level 3.8 3.5-5.1 mmol/L Chloride Level 106 98-107 mmol/L Carbon Dioxide Level 27 20-31 mmol/L Anion Gap 8 5-15 Blood Urea Nitrogen 53 #H 9-23 mg/dL Creatinine 1.73 H 0.700-1.30 mg/dL Glomerular Filtration Rate Calc 40 >90 mL/min BUN/Creatinine Ratio 30.6 H 10.0-20.0 Serum Glucose 159 H 74-106 mg/dL Calcium Level 9.5 8.7-10.4 mg/dL Total Bilirubin 0.4 0.2-1.0 mg/dL Aspartate Amino Transferase (AST) 23 13-40 U/L Alanine Aminotransferase (ALT) 11 7-40 U/L Alkaline Phosphatase 82 46-116 U/L B-Type Natriuretic Peptide 272.90 0-100 pg/mL Total Protein 5.3 L 5.7-8.2 g/dL Albumin 3.4 3.2-4.8 g/dL Anisocytosis (manual) Slight Schistocytes Few Magnesium Level 1.9 1.6-2.6 mg/dL Digoxin Level 1.66 0.8-2 ng/mL Urine Color Brown H Yellow Urine Clarity Ex.turbid Clear Urine pH 5.5 5.0-9.0 Urine Specific [place] 1.011 1.001-1.035 Urine Protein 1+ H Negative Urine Ketones Negative Negative Urine Blood 2+ H Negative /uL Urine Nitrite Negative Negative Urine Bilirubin Negative Negative Urine Urobilinogen Normal Negative mg/dL Urine Leukocyte Esterase 3+ Negative /uL Urine RBC 69 0 - 3 /hpf Urine WBC 3652 0 - 3 /hpf Urine WBC Clumps Present None Seen /hpf Urine Squamous Epithelial Cells None seen <5 /hpf Urine Bacteria None seen None Seen /hpf Urine Yeast (Budding) Moderate None Seen /hpf Urine Glucose Normal Normal mg/dL Test 07/19/24 13:06 Range/Units Hemoglobin A1c 8.9 H <5.7 % A1C Phosphorus Level 3.8 2.4-5.1 mg/dL Troponin I High Sensitivity 21 </=54 ng/L Triglycerides Level 164 H < 150 mg/dL Cholesterol Level 122 < 200 mg/dL LDL Cholesterol 54 < 100 mg/dL HDL Cholesterol 36 L 40-59 mg/dL Microbiology Date/Time Source Procedure Growth Status 07/19/24 20:30 Blood Blood Culture - Preliminary NO GROWTH AFTER 24 HOURS OF INCUBATION. Resulted 07/19/24 17:44 Urine - Midstream Clean Catch Urine Culture - Preliminary Resulted Assessment/Plan Problem List: (1) BPH (benign prostatic hyperplasia) (2) Hydronephrosis (3) Vpyzp-gj-mzghyrt kidney injury (4) Failure to thrive Plan left kidney is atrophic - will order NM renal scan to confirm function and rule out obstruction. if left kidney is functioning at >20% he will need PCN placed by IR service. If less than 20% will manage conservatively. right kidney mild to moderate hydronephrosis - monitor thickened bladder wall with multiple diverticula - cystoscopy TBA as outpatient yeast in the urine, likely due to urinary stasis and elevated glucose level- per ID but generally speaking not necessary to treat unless symptomatic severe prostatomegaly with LUTs- start flomax and finasteride, valenzuela if unable to void elevated PSA 6.3 likely due to severe BPH, less likely to be prostate cancer given size of prostate. repeat PSA on outpt basis. Plan discussed with: CELINE Soares NP Jul 21, 2024 18:18
--- NOTE | 2024-07-21 19:57 | DVHPN2 ---
Progress Note - Dictate Subjective seen by urology 2d echo-EF 60% vital signs Vital Sign Date Time Temp Pulse Resp B/P (MAP) Pulse Ox O2 Delivery O2 Flow Rate FiO2 07/21/24 16:52 97.7 68 16 129/59 (82) 98 97.7 07/21/24 08:00 Room Air* 0 21 Total Intake and Output 07/20/24 07/20/24 07/21/24 15:00 23:00 07:00 Intake Total 425 ml 700 ml 460 ml Output Total 900 ml Balance 425 ml 700 ml -440 ml medications Current Medications Medications Dose Ordered Sig/Rudy Route Start Time Stop Time Status Last Admin Dose Admin Nitroglycerin 0.4 mg Q5MINP PRN SL 07/19/24 19:00 Morphine Sulfate 2 mg Q30M PRN IV 07/19/24 19:00 Digoxin 0.125 mg DAILY PO 07/20/24 10:00 07/21/24 10:51 0.125 MG Finasteride 5 mg DAILY PO 07/20/24 10:00 07/21/24 10:52 5 MG Glipizide 5 mg BID PO 07/19/24 22:00 07/21/24 11:00 5 MG Pantoprazole Sodium 40 mg DAILY PO 07/20/24 10:00 07/21/24 10:52 40 MG Insulin Human Lispro AC SC 07/20/24 07:00 07/21/24 17:03 5 UNITS Insulin Human Lispro HS SC 07/19/24 22:00 07/20/24 22:00 4 UNITS Piperacillin Sod/ Tazobactam Sod 100 ml @ 25 mls/hr Q8HR IV 07/20/24 14:00 07/21/24 14:32 25 MLS/HR Tamsulosin HCl 0.4 mg QPM PO 07/22/24 18:00 laboratory and microbiology Laboratory Tests 07/21/24 05:05 Test 07/21/24 05:05 Range/Units Serum Glucose 159 H 74-106 mg/dL 2 D echo Conclusion Normal left ventricular size and dimension. Normal left ventricular systolic function estimated ejection fraction 60%. There is a grade 1 diastolic dysfunction. Normal right ventricular size and dimension. Normal right ventricular systolic function. Ncly-xa-cbsjjpjsgt elevated right ventricular systolic pressure at 40 mm of mercury Mildly dilated right and left atria. Ptku-vi-grbexcir mitral valve regurgitation. Mild aortic valve sclerosis. Mild tricuspid valve regurgitation. Pulmonary valve is grossly normal. No pericardial effusion. Assessment/Plan Problems(with codes): (1) UTI (urinary tract infection) (2) Bradycardia (3) Altered level of consciousness (4) Dehydration (5) Hydronephrosis (6) Sepsis (7) Failure to thrive (8) Whlcq-hj-osmwrkz kidney injury (9) Acute exacerbation of CHF (congestive heart failure) EMY THOMAS MD Jul 21, 2024 19:57
[2024-07-22] VITALS (8 sets, daily range): BP systolic 98–126; BP diastolic 45–66; PULSE 61–82; RESP 16–24; TEMP 97.8–98.2; O2SAT 6–99
--- NOTE | 2024-07-22 12:13 | DVHPN2 ---
Consult Progress Note Date Seen: Jul 22, 2024 Subjective Patient reports: Feels better (BP stable, no fevers, urinating well) Objective vital signs Vital Sign Date Time Temp Pulse Resp B/P (MAP) Pulse Ox O2 Delivery O2 Flow Rate FiO2 07/22/24 10:34 82 07/22/24 08:56 98.1 18 121/47 (71) 97 98.1 07/21/24 20:00 Room Air* 0 21 Total Intake and Output 07/21/24 07/21/24 07/22/24 15:00 23:00 07:00 Intake Total 460 ml 1460 ml 300 ml Output Total 350 ml 1500 ml Balance 460 ml 1110 ml -1200 ml medications Current Medications Medications Dose Ordered Sig/Rudy Route Start Time Stop Time Status Last Admin Dose Admin Nitroglycerin 0.4 mg Q5MINP PRN SL 07/19/24 19:00 Morphine Sulfate 2 mg Q30M PRN IV 07/19/24 19:00 Digoxin 0.125 mg DAILY PO 07/20/24 10:00 07/22/24 10:34 0.125 MG Finasteride 5 mg DAILY PO 07/20/24 10:00 07/22/24 10:33 5 MG Glipizide 5 mg BID PO 07/19/24 22:00 07/22/24 10:40 5 MG Pantoprazole Sodium 40 mg DAILY PO 07/20/24 10:00 07/22/24 10:33 40 MG Insulin Human Lispro AC SC 07/20/24 07:00 07/22/24 10:42 7 UNITS Insulin Human Lispro HS SC 07/19/24 22:00 07/21/24 22:00 6 UNITS Piperacillin Sod/ Tazobactam Sod 100 ml @ 25 mls/hr Q8HR IV 07/20/24 14:00 07/22/24 06:52 25 MLS/HR Tamsulosin HCl 0.4 mg QPM PO 07/22/24 18:00 Physical Exam: - General: NAD - Neck: Supple. No masses. - HEENT: PERRL. Normal lids and conjunctiva. Moist mucous membranes. Oropharynx without lesions, exudates or excessive erythema. Normal appearance of the external aspects of the nose and ears. - Heart: Regular rhythm, normal rate. No murmur. No lower extremity edema. - Lungs: Normal respiratory effort. Clear to auscultation bilaterally. No wheezes. No crackles. - Abdomen: Soft. Non-tender. Non-distended. No masses or abdominal hernia. - Msk: No digital cyanosis. Normal strength and tone in all 4 limbs - Skin: Warm and dry, no rashes. - Neuro: Alert. No facial droop or slurred speech. Extra-ocular movements intact. Sensation intact to soft touch in all 4 limbs. - Psych: Appropriate mood. Full affect. Oriented to person, place, time, and situation. 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 He feels very weak, especially in his legs, and has difficulty walking. No current antibiotics. Blood pressure and glucose levels have been fluctuating. Recent ER visit provided a short course of antibiotics. 1. Possible urinary tract inflammation (suspected interstitial cystitis). 2. Acute weakness, especially in the legs. 3. Unstable vital signs, particularly concerning low blood pressure. Septic Shock 4. Elevated blood glucose levels suggesting poor glycemic control. 5. Risk of potential bladder or prostate conditions, considering patient history and slightly elevated prostate level. 6. General suspicion of systemic infection due to low blood pressure and leg weakness. 07/20: Urine cultures are showing young colonies ,awaiting blood cultures. 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 Appears large heterogeneous correlated with PSA recommended small urinary bladder diverticula. 07/21: brain CT and MRI negative for stroke. and TTE w/ grade 1 diastolic dysfunction Plan: - recommend urology consult for bilateral hydronephrosis as well as for prostatomegaly , pyuria and brown urine. --> urology recommending NM scan - follow up on blood cultures 1. can switch to Ceftriaxone for bacteria in urine, no need to treat yeast unless fungal ball is seen 2. Initiate intravenous fluids to manage low BP and address potential dehydration. 4. Monitor kidney function due to elevated creatinine. 6. Monitor glucose levels closely and adjust antidiabetic medications as needed. 7. Rule out bladder and prostate cancer through relevant investigations. 8. Ensure follow-up on blood thinner management given the weak condition. Plan discussed with: Patient BRYCE THOMAS MD Jul 22, 2024 12:13
--- NOTE | 2024-07-22 13:06 | DVHPN2 ---
Progress Note - Dictate Date Seen: Jul 22, 2024 Subjective seen by urology vital signs Vital Sign Date Time Temp Pulse Resp B/P (MAP) Pulse Ox O2 Delivery O2 Flow Rate FiO2 07/22/24 10:34 82 07/22/24 08:56 98.1 18 121/47 (71) 97 98.1 07/22/24 08:00 Room Air* 0 21 Total Intake and Output 07/21/24 07/21/24 07/22/24 15:00 23:00 07:00 Intake Total 460 ml 1460 ml 300 ml Output Total 350 ml 1500 ml Balance 460 ml 1110 ml -1200 ml medications Current Medications Medications Dose Ordered Sig/Rudy Route Start Time Stop Time Status Last Admin Dose Admin Nitroglycerin 0.4 mg Q5MINP PRN SL 07/19/24 19:00 Morphine Sulfate 2 mg Q30M PRN IV 07/19/24 19:00 Digoxin 0.125 mg DAILY PO 07/20/24 10:00 07/22/24 10:34 0.125 MG Finasteride 5 mg DAILY PO 07/20/24 10:00 07/22/24 10:33 5 MG Glipizide 5 mg BID PO 07/19/24 22:00 07/22/24 10:40 5 MG Pantoprazole Sodium 40 mg DAILY PO 07/20/24 10:00 07/22/24 10:33 40 MG Insulin Human Lispro AC SC 07/20/24 07:00 07/22/24 10:42 7 UNITS Insulin Human Lispro HS SC 07/19/24 22:00 07/21/24 22:00 6 UNITS Tamsulosin HCl 0.4 mg QPM PO 07/22/24 18:00 Ceftriaxone Sodium/Dextrose 50 ml @ 50 mls/hr DAILY IV 07/22/24 14:00 laboratory and microbiology Laboratory Tests 07/21/24 05:05 Test 07/21/24 05:05 Range/Units Serum Glucose 159 H 74-106 mg/dL Assessment/Plan Problems(with codes): (1) UTI (urinary tract infection) (2) Bradycardia (3) Altered level of consciousness (4) Dehydration (5) Hydronephrosis (6) Sepsis (7) Failure to thrive (8) Kpudi-gv-dhndkuy kidney injury (9) Acute exacerbation of CHF (congestive heart failure) EMY THOMAS MD Jul 22, 2024 13:06
[2024-07-22] MEDS: INSULIN LISPRO (HUMAN) 100 UNITS/ML ML SC SCH (13:15)
[2024-07-22] MEDS: cefTRIAXone 2GM/50ML D5W 50 ML IV SCH (15:30)
[2024-07-22] MEDS: MEGESTROL ACETATE 20 MG TAB PO SCH (17:00)
[2024-07-22] MEDS ORDERED: INSULIN LANTUS (GLARGINE) 1 /0.01ml (100units/ml) SC SCH (17:30)
[2024-07-22] MEDS: INSULIN LANTUS (GLARGINE) 1 /0.01ml (100units/ml) SC SCH (17:30)
[2024-07-22] MEDS: Nepro With Carbsteady ButterPecan 8oz Carton PO SCH (18:00)
[2024-07-22] MEDS: TAMSULOSIN HYDROCHLORIDE 0.4 MG CAP PO SCH (18:40)
[2024-07-23] VITALS (8 sets, daily range): BP systolic 98–121; BP diastolic 49–61; PULSE 66–85; RESP 17–19; TEMP 98–98.7; O2SAT 95–100
[2024-07-23 06:35] LABS: Basophils # (auto) 0 10 ^3/uL (0-0.2); Basophils % (auto) 0.6 % (0.0-2.0); Eosinophils # (auto) 0.4 10 ^3/uL (0-0.8); Eosinophils % (auto) 4.8 % (0.0-7.0); Hematocrit 31.4 % (41.0-53.0); Hemoglobin 10.8 g/dL (13.5-17.5); Lymphocytes # (auto) 1.7 10 ^3/uL (0.4-5.4); Lymphocytes % (auto) 19.7 % (10.0-50.0); Mean Corpuscular Hemoglobin 29.4 pg (28.0-32.0); Mean Corpuscular Hgb Conc. 34.2 g/dL (32.0-36.0); Mean Corpuscular Volume 85.9 fL (80.0-100.0); Monocytes # (auto) 0.8 10 ^3/uL (0-1.3); Monocytes % (auto) 9.6 % (0.0-12.0); Neutrophils # (auto) 5.5 10 ^3/uL (1.6-8.6); Neutrophils % (auto) 65.3 % (37.0-80.0); Platelet Count (auto) 204 10^3/uL (140-450); Red Blood Cells 3.65 10^6/uL (4.5-5.90); Red Cell Distribution Width 16.1 % (11.8-14.3); White Blood Cell 8.4 10^3/uL (4.4-10.8)
[2024-07-23 06:50] LABS: Alanine Aminotransferase 11 U/L (7-40); Albumin 3.4 g/dL (3.2-4.8); Anion Gap 7 (5-15); Aspartate Aminotransferase 25 U/L (13-40); BUN/Creatinine Ratio 23.4 (10.0-20.0); Bilirubin, Total 0.3 mg/dL (0.2-1.0); Blood Urea Nitrogen 46 mg/dL (9-23); Calcium 9.2 mg/dL (8.7-10.4); Carbon Dioxide 29 mmol/L (20-31); Chloride 106 mmol/L (98-107); Glucose 75 mg/dL (74-106); Potassium 4.2 mmol/L (3.5-5.1); Sodium 142 mmol/L (136-145); Total Protein 4.9 g/dL (5.7-8.2)
[2024-07-23 08:01] LABS: Alkaline Phosphatase 67 U/L (46-116)
--- NOTE | 2024-07-23 09:33 | DVHPN2 ---
Progress Note - Dictate Date Seen: Jul 23, 2024 Subjective seen by urology 2d echo-EF 60% Renal scan-pending vital signs Vital Sign Date Time Temp Pulse Resp B/P (MAP) Pulse Ox O2 Delivery O2 Flow Rate FiO2 07/23/24 05:00 98.2 71 18 121/61 (81) 100 98.2 07/22/24 08:00 Room Air* 0 21 Total Intake and Output 07/22/24 07/22/24 07/23/24 15:00 23:00 07:00 Intake Total 100 ml 170 ml 150 ml Output Total 750 ml 550 ml Balance 100 ml -580 ml -400 ml medications Current Medications Medications Dose Ordered Sig/Rudy Route Start Time Stop Time Status Last Admin Dose Admin Nitroglycerin 0.4 mg Q5MINP PRN SL 07/19/24 19:00 Morphine Sulfate 2 mg Q30M PRN IV 07/19/24 19:00 Digoxin 0.125 mg DAILY PO 07/20/24 10:00 07/22/24 10:34 0.125 MG Finasteride 5 mg DAILY PO 07/20/24 10:00 07/22/24 10:33 5 MG Glipizide 5 mg BID PO 07/19/24 22:00 07/22/24 22:18 5 MG Pantoprazole Sodium 40 mg DAILY PO 07/20/24 10:00 07/22/24 10:33 40 MG Insulin Human Lispro AC SC 07/20/24 07:00 07/22/24 17:00 12 UNITS Tamsulosin HCl 0.4 mg QPM PO 07/22/24 18:00 07/22/24 18:40 0.4 MG Ceftriaxone Sodium/Dextrose 50 ml @ 50 mls/hr DAILY IV 07/22/24 14:00 07/22/24 15:30 50 MLS/HR Insulin Human Lispro HS SC 07/22/24 13:15 07/22/24 22:20 5 UNITS Insulin Glargine 5 units DAILY@DINNER SC 07/22/24 17:30 07/22/24 17:30 5 UNITS Enteral Nutritional Formula 240 ml TIDWM PO 07/22/24 18:00 07/23/24 08:00 240 ML Megestrol Acetate 40 mg AC PO 07/22/24 17:00 07/23/24 06:08 40 MG laboratory and microbiology Laboratory Tests 07/23/24 06:16 Test 07/23/24 06:16 Range/Units Serum Glucose 75 74-106 mg/dL Assessment/Plan Problems(with codes): (1) UTI (urinary tract infection) (2) Bradycardia (3) Altered level of consciousness (4) Dehydration (5) Hydronephrosis (6) Sepsis (7) Failure to thrive (8) Nyufj-fr-xpixjth kidney injury 1. SOB 2. GI consult 3. await renal scan EMY THOMAS MD Jul 23, 2024 09:33
--- NOTE | 2024-07-23 19:18 | DVHPN2 ---
Consult Progress Note Date Seen: Jul 23, 2024 Subjective Patient reports: Feels better (awaiting pacemaker clearance for MRI renal scan) Objective vital signs Vital Sign Date Time Temp Pulse Resp B/P (MAP) Pulse Ox O2 Delivery O2 Flow Rate FiO2 07/23/24 18:38 98.5 77 18 110/49 (69) 99 98.5 07/23/24 08:00 Nasal Cannula* 2 28 Total Intake and Output 07/22/24 07/22/24 07/23/24 15:00 23:00 07:00 Intake Total 100 ml 170 ml 150 ml Output Total 750 ml 550 ml Balance 100 ml -580 ml -400 ml medications Current Medications Medications Dose Ordered Sig/Rudy Route Start Time Stop Time Status Last Admin Dose Admin Nitroglycerin 0.4 mg Q5MINP PRN SL 07/19/24 19:00 Morphine Sulfate 2 mg Q30M PRN IV 07/19/24 19:00 Digoxin 0.125 mg DAILY PO 07/20/24 10:00 07/23/24 09:50 0.125 MG Finasteride 5 mg DAILY PO 07/20/24 10:00 07/23/24 09:48 5 MG Glipizide 5 mg BID PO 07/19/24 22:00 07/23/24 09:55 5 MG Pantoprazole Sodium 40 mg DAILY PO 07/20/24 10:00 07/23/24 09:50 40 MG Insulin Human Lispro AC SC 07/20/24 07:00 07/23/24 18:17 12 UNITS Tamsulosin HCl 0.4 mg QPM PO 07/22/24 18:00 07/23/24 18:16 0.4 MG Ceftriaxone Sodium/Dextrose 50 ml @ 50 mls/hr DAILY IV 07/22/24 14:00 07/23/24 09:50 50 MLS/HR Insulin Human Lispro HS SC 07/22/24 13:15 07/22/24 22:20 5 UNITS Enteral Nutritional Formula 240 ml TIDWM PO 07/22/24 18:00 07/23/24 18:17 240 ML Megestrol Acetate 40 mg AC PO 07/22/24 17:00 07/23/24 17:00 40 MG Physical Exam: General: NAD Neck: Supple. No masses. HEENT: PERRL. Normal lids and conjunctiva. Moist mucous membranes. Oropharynx without lesions, exudates, or excessive erythema. Normal appearance of the external aspects of the nose and ears. Heart: Regular rhythm, normal rate. No murmur. No lower extremity edema. Lungs: Normal respiratory effort. Clear to auscultation bilaterally. No wheezes. No crackles. Abdomen: Soft. Non-tender. Non-distended. No masses or abdominal hernia. Msk: No digital cyanosis. Normal strength and tone in all 4 limbs. Skin: Warm and dry, no rashes. Neuro: Alert. No facial droop or slurred speech. Extra-ocular movements intact. Sensation intact to soft touch in all 4 limbs. Psych: Appropriate mood. Full affect. Oriented to person, place, time, and situation. 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 He feels very weak, especially in his legs, and has difficulty walking. No current antibiotics. Blood pressure and glucose levels have been fluctuating. Recent ER visit provided a short course of antibiotics. 1. Possible urinary tract inflammation (suspected interstitial cystitis). 2. Acute weakness, especially in the legs. 3. Unstable vital signs, particularly concerning low blood pressure. Septic Shock 4. Elevated blood glucose levels suggesting poor glycemic control. 5. Risk of potential bladder or prostate conditions, considering patient history and slightly elevated prostate level. 6. General suspicion of systemic infection due to low blood pressure and leg weakness. 07/20: Urine cultures are showing young colonies ,awaiting blood cultures. 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 Appears large heterogeneous correlated with PSA recommended small urinary bladder diverticula. 07/21: brain CT and MRI negative for stroke. and TTE w/ grade 1 diastolic dysfunction Plan: - recommend urology consult for bilateral hydronephrosis as well as for prostatomegaly , pyuria and brown urine. --> urology recommending NM scan - follow up on blood cultures 1. can switch to Ceftriaxone for bacteria in urine, no need to treat yeast unless fungal ball is seen 2. Initiate intravenous fluids to manage low BP and address potential dehydration. 4. Monitor kidney function due to elevated creatinine. 6. Monitor glucose levels closely and adjust antidiabetic medications as needed. 7. Rule out bladder and prostate cancer through relevant investigations. 8. Ensure follow-up on blood thinner management given the weak condition. Plan discussed with: Patient BRYCE THOMAS MD Jul 23, 2024 19:18
[2024-07-24] VITALS (8 sets, daily range): BP systolic 100–123; BP diastolic 45–61; PULSE 72–90; RESP 17–19; TEMP 97.7–99.1; O2SAT 96–99
[2024-07-24 06:57] LABS: Hematocrit 31.5 % (41.0-53.0); Hemoglobin 10.4 g/dL (13.5-17.5); Mean Corpuscular Hemoglobin 28.8 pg (28.0-32.0); Mean Corpuscular Hgb Conc. 33.2 g/dL (32.0-36.0); Mean Corpuscular Volume 86.8 fL (80.0-100.0); Platelet Count (auto) 208 10^3/uL (140-450); Red Blood Cells 3.63 10^6/uL (4.5-5.90); Red Cell Distribution Width 16.1 % (11.8-14.3); White Blood Cell 7.2 10^3/uL (4.4-10.8)
[2024-07-24 06:59] LABS: Alanine Aminotransferase 14 U/L (7-40); Albumin 3.2 g/dL (3.2-4.8); Alkaline Phosphatase 70 U/L (46-116); Anion Gap 7 (5-15); Aspartate Aminotransferase 26 U/L (13-40); BUN/Creatinine Ratio 29.2 (10.0-20.0); Bilirubin, Total 0.2 mg/dL (0.2-1.0); Blood Urea Nitrogen 50 mg/dL (9-23); Carbon Dioxide 28 mmol/L (20-31); Chloride 106 mmol/L (98-107); Glucose 104 mg/dL (74-106); Potassium 3.7 mmol/L (3.5-5.1); Sodium 141 mmol/L (136-145); Total Protein 4.9 g/dL (5.7-8.2)
[2024-07-24 07:08] LABS: Basophils % (manual) 0 (0.0-2.0); Blast Cells 0; Myelocytes % 0; Promyelocytes % 0; Reactive Lymphocytes 0
[2024-07-24 07:55] LABS: Band Neutrophils % (manual) 23; Eosinophils % (manual) 14 (0-7); Lymphocytes % (manual) 27 (10.0-50.0); Metamyelocytes % 1; Monocytes % (manual) 4 (0-12); Platelet Estimate Adequate
--- NOTE | 2024-07-24 10:13 | DVHPN2 ---
Progress Note - Dictate Date Seen: Jul 24, 2024 Subjective seen by urology 2d echo-EF 60% Renal scan-pending urine C S pos for yeast case d/w dr. Pan Beth Micafungin is added DM uncontrolled BS > 400 vital signs Vital Sign Date Time Temp Pulse Resp B/P (MAP) Pulse Ox O2 Delivery O2 Flow Rate FiO2 07/24/24 10:05 83 07/24/24 05:00 98.5 19 106/45 (65) 98 98.5 07/23/24 20:00 Nasal Cannula* 2 28 Total Intake and Output 07/23/24 07/23/24 07/24/24 15:00 23:00 07:00 Intake Total 170 ml 480 ml 250 ml Output Total 1002 ml 750 ml Balance 170 ml -522 ml -500 ml medications Current Medications Medications Dose Ordered Sig/Rudy Route Start Time Stop Time Status Last Admin Dose Admin Nitroglycerin 0.4 mg Q5MINP PRN SL 07/19/24 19:00 Morphine Sulfate 2 mg Q30M PRN IV 07/19/24 19:00 Digoxin 0.125 mg DAILY PO 07/20/24 10:00 07/24/24 10:05 0.125 MG Finasteride 5 mg DAILY PO 07/20/24 10:00 07/24/24 10:10 5 MG Glipizide 5 mg BID PO 07/19/24 22:00 07/24/24 10:08 5 MG Pantoprazole Sodium 40 mg DAILY PO 07/20/24 10:00 07/24/24 10:04 40 MG Insulin Human Lispro AC SC 07/20/24 07:00 07/23/24 18:17 12 UNITS Tamsulosin HCl 0.4 mg QPM PO 07/22/24 18:00 07/23/24 18:16 0.4 MG Ceftriaxone Sodium/Dextrose 50 ml @ 50 mls/hr DAILY IV 07/22/24 14:00 07/24/24 10:03 50 MLS/HR Insulin Human Lispro HS SC 07/22/24 13:15 07/23/24 21:46 9 UNITS Enteral Nutritional Formula 240 ml TIDWM PO 07/22/24 18:00 07/24/24 08:00 240 ML Megestrol Acetate 40 mg AC PO 07/22/24 17:00 07/24/24 06:44 40 MG laboratory and microbiology Laboratory Tests 07/24/24 06:13 Test 07/24/24 06:13 Range/Units Serum Glucose 104 74-106 mg/dL Assessment/Plan Problems(with codes): (1) UTI (urinary tract infection) (2) Bradycardia (3) Altered level of consciousness (4) Dehydration (5) Hydronephrosis (6) Sepsis (7) Failure to thrive (8) Qvhco-th-vpdmvvm kidney injury 1. revise sliding scale 3. await renal scan EMY BETH MD Jul 24, 2024 10:13
[2024-07-24] MEDS ORDERED: MICAFUNGIN SODIUM 100 MG in SODIUM CHL 0.9% 100 ML IV SCH (15:00)
[2024-07-24] MEDS: INSULIN LISPRO (HUMAN) 100 UNITS/ML ML SC SCH (21:45)
[2024-07-24] MEDS: SOD CHL 0.45% 1,000 ML IV SCH (22:56)
--- NOTE | 2024-07-24 22:59 | DVHPN2 ---
Consult Progress Note Date Seen: Jul 24, 2024 Subjective Patient reports: Feels better (getting up with assistance , feeling weak but blood pressure is getting better) Objective vital signs Vital Sign Date Time Temp Pulse Resp B/P (MAP) Pulse Ox O2 Delivery O2 Flow Rate FiO2 07/24/24 21:00 98.4 75 19 100/51 (67) 96 98.4 07/24/24 20:00 Nasal Cannula* 2 28 Total Intake and Output 07/23/24 07/23/24 07/24/24 15:00 23:00 07:00 Intake Total 170 ml 480 ml 250 ml Output Total 1002 ml 750 ml Balance 170 ml -522 ml -500 ml medications Current Medications Medications Dose Ordered Sig/Rudy Route Start Time Stop Time Status Last Admin Dose Admin Nitroglycerin 0.4 mg Q5MINP PRN SL 07/19/24 19:00 Morphine Sulfate 2 mg Q30M PRN IV 07/19/24 19:00 Digoxin 0.125 mg DAILY PO 07/20/24 10:00 07/24/24 10:05 0.125 MG Finasteride 5 mg DAILY PO 07/20/24 10:00 07/24/24 10:10 5 MG Glipizide 5 mg BID PO 07/19/24 22:00 07/24/24 21:34 5 MG Pantoprazole Sodium 40 mg DAILY PO 07/20/24 10:00 07/24/24 10:04 40 MG Tamsulosin HCl 0.4 mg QPM PO 07/22/24 18:00 07/24/24 17:42 0.4 MG Ceftriaxone Sodium/Dextrose 50 ml @ 50 mls/hr DAILY IV 07/22/24 14:00 07/24/24 10:03 50 MLS/HR Insulin Human Lispro HS SC 07/22/24 13:15 07/24/24 21:35 9 UNITS Enteral Nutritional Formula 240 ml TIDWM PO 07/22/24 18:00 07/24/24 17:44 240 ML Megestrol Acetate 40 mg AC PO 07/22/24 17:00 07/24/24 17:42 40 MG Micafungin Sodium 100 mg/Sodium Chloride 100 ml @ 100 mls/hr Q24H IV 07/24/24 15:00 08/07/24 14:59 Cancel Micafungin Sodium 100 mg/Sodium Chloride 100 ml @ 100 mls/hr DAILY IV 07/25/24 10:00 Insulin Human Lispro AC SC 07/24/24 21:45 Sodium Chloride 1,000 ml @ 40 mls/hr Q24H IV 07/24/24 21:45 Physical Exam: General: NAD Neck: Supple. No masses. HEENT: PERRL. Normal lids and conjunctiva. Moist mucous membranes. Oropharynx without lesions, exudates, or excessive erythema. Normal appearance of the external aspects of the nose and ears. Heart: Regular rhythm, normal rate. No murmur. No lower extremity edema. Lungs: Normal respiratory effort. Clear to auscultation bilaterally. No wheezes. No crackles. Abdomen: Soft. Non-tender. Non-distended. No masses or abdominal hernia. Msk: No digital cyanosis. Normal strength and tone in all 4 limbs. Skin: Warm and dry, no rashes. Neuro: Alert. No facial droop or slurred speech. Extra-ocular movements intact. Sensation intact to soft touch in all 4 limbs. Psych: Appropriate mood. Full affect. Oriented to person, place, time, and situation. laboratory and microbiology Laboratory Tests 07/24/24 06:13 Test 07/24/24 06:13 Range/Units Serum Glucose 104 74-106 mg/dL Problem List/Assessment/Plan Problems(with codes): (1) Dehydration (2) Hypotension (3) Septic shock (4) Baacw-sn-gyfvznx kidney injury (5) Acute exacerbation of CHF (congestive heart failure) (6) Altered level of consciousness (7) UTI (urinary tract infection) (8) Sepsis Problem List/Assessment/Plan (1) UTI (urinary tract infection) (2) Bradycardia (3) Altered level of consciousness (4) Dehydration (5) Hydronephrosis (6) Sepsis (7) Failure to thrive (8) Cmslx-so-jasjkfk kidney injury (9) Acute exacerbation of CHF (congestive heart failure) (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 He feels very weak, especially in his legs, and has difficulty walking. No current antibiotics. Blood pressure and glucose levels have been fluctuating. Recent ER visit provided a short course of antibiotics. 1. Possible urinary tract inflammation (suspected interstitial cystitis). 2. Acute weakness, especially in the legs. 3. Unstable vital signs, particularly concerning low blood pressure. Septic Shock 4. Elevated blood glucose levels suggesting poor glycemic control. 5. Risk of potential bladder or prostate conditions, considering patient history and slightly elevated prostate level. 6. General suspicion of systemic infection due to low blood pressure and leg weakness. 07/20: Urine cultures are showing young colonies ,awaiting blood cultures. 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 Appears large heterogeneous correlated with PSA recommended small urinary bladder diverticula. 07/21: brain CT and MRI negative for stroke. and TTE w/ grade 1 diastolic dysfunction 07/24; patient is growing yeast in urine , awaiting scan for kidneys Plan: - follow up on NM scan of kidneys - recommend urology consult for bilateral hydronephrosis as well as for prostatomegaly , pyuria and brown urine. --> urology recommending NM scan - patient follow up outpatient with infectoius disease recommend physical therapy -recommend nutrition consult -prepare for discharge - follow up on blood cultures 1. Continue ceftriaxone , recommend adding micafungin to regimen until fungal ball has been rolled out ( 2 weeks via minline ) 2. Initiate intravenous fluids to manage low BP and address potential dehydration. 4. Monitor kidney function due to elevated creatinine. 6. Monitor glucose levels closely and adjust antidiabetic medications as needed. 7. Rule out bladder and prostate cancer through relevant investigations. 8. Ensure follow-up on blood thinner management given the weak condition. Plan discussed with: Other Dietary Evaluation Review Comments: Diet for CKD, non HD, Renal Specific-50g protein restriction with 2gNa, 3K, low phos, if on HD, Renal Standard 2gNa 3K, low phos. Expected Outcomes/Goals: Avoid uremic syndrome. BRYCE THOMAS MD Jul 24, 2024 22:59
[2024-07-25] VITALS (7 sets, daily range): BP systolic 109–128; BP diastolic 51–86; PULSE 70–99; RESP 15–19; TEMP 97.7–98.5; O2SAT 95–99
[2024-07-25 06:21] LABS: Hematocrit 32.2 % (41.0-53.0); Hemoglobin 10.7 g/dL (13.5-17.5); Mean Corpuscular Hemoglobin 28.5 pg (28.0-32.0); Mean Corpuscular Hgb Conc. 33.3 g/dL (32.0-36.0); Mean Corpuscular Volume 85.5 fL (80.0-100.0); Platelet Count (auto) 221 10^3/uL (140-450); Red Blood Cells 3.77 10^6/uL (4.5-5.90); Red Cell Distribution Width 16.4 % (11.8-14.3); White Blood Cell 7.4 10^3/uL (4.4-10.8)
[2024-07-25 06:32] LABS: Basophils % (manual) 0 (0.0-2.0); Blast Cells 0; Myelocytes % 0; Promyelocytes % 0; Reactive Lymphocytes 0
[2024-07-25 06:38] LABS: Alanine Aminotransferase 15 U/L (7-40); Albumin 3.4 g/dL (3.2-4.8); Alkaline Phosphatase 78 U/L (46-116); Anion Gap 6 (5-15); Aspartate Aminotransferase 27 U/L (13-40); BUN/Creatinine Ratio 33.8 (10.0-20.0); Blood Urea Nitrogen 49 mg/dL (9-23); Carbon Dioxide 29 mmol/L (20-31); Chloride 104 mmol/L (98-107); Glucose 127 mg/dL (74-106); Potassium 3.6 mmol/L (3.5-5.1); Sodium 139 mmol/L (136-145)
[2024-07-25 06:39] LABS: Bilirubin, Total 0.2 mg/dL (0.2-1.0); Total Protein 5.3 g/dL (5.7-8.2)
[2024-07-25 07:56] LABS: Band Neutrophils % (manual) 22; Eosinophils % (manual) 14 (0-7); Lymphocytes % (manual) 31 (10.0-50.0); Metamyelocytes % 1; Monocytes % (manual) 8 (0-12); Platelet Estimate Adequate
[2024-07-25] MEDS: FUROSEMIDE 40 MG/4 ML VIAL IV ONE (08:13)
[2024-07-25] MEDS: FUROSEMIDE 40 MG/4 ML VIAL ONE (08:14)
--- NOTE | 2024-07-25 09:45 | DVH ---
Procedure: NM NM MAG3 RENAL SCAN Exam Date: 07/25/2024 07:44 AM. Clinical History: Renal obstruction Comparison Study: CT dated 07/21/2024 Nuclear Medicine Renal Scan with Lasix. Technique: Following the intravenous administration of 10.5 mCi of technetium 99m labeled MAG-3 , jennifer w images were acquired in one second intervals. This was followed by functional imaging of the kidn eys in the posterior projection which were obtained at 20 seconds intervals reconstructed into 2 min nik frames for a total of 34 minutes. 40 mg of Lasix were given IV at the 10 minute mary. Flow cur ves and functional renogram curves were generated. Split function data were generated from the firs t three minutes of the study. Findings: The flow study reveals prompt visualization of both kidneys with normal flow bilaterally. The kidneys are normal size, location and contour. The functional data was obtained with the renal pelvis included in the region of interest: Left: Peak time on the left is 17 minutes. Peak to 1/2 peak on the left is 23 minutes. Diuretic T 1/2 on the left is 21 minutes. Right: Peak time on the right is 6 minutes. Peak to 1/2 peak on the right is 20 minutes. Diuretic T 1/2 on the right is 17.5 minutes. Split function is 25 % on the left and 75 % on the right. IMPRESSION: Split function is 25 % on the left and 75 % on the right.
--- NOTE | 2024-07-25 10:05 | DVHPN2 ---
Progress Note - Dictate Date Seen: Jul 25, 2024 Subjective seen by urology 2d echo-EF 60% Renal scan-pending urine C S pos for yeast case d/w dr. Pan Beth Micafungin is added DM uncontrolled BS > 400 vital signs Vital Sign Date Time Temp Pulse Resp B/P (MAP) Pulse Ox O2 Delivery O2 Flow Rate FiO2 07/25/24 08:14 111/68 07/25/24 07:30 70 15 98 Room Air* 0 21 07/25/24 05:00 98.5 98.5 Total Intake and Output 07/24/24 07/24/24 07/25/24 15:00 23:00 07:00 Intake Total 524 ml 1160 ml 150 ml Output Total 700 ml 300 ml Balance 524 ml 460 ml -150 ml medications Current Medications Medications Dose Ordered Sig/Rudy Route Start Time Stop Time Status Last Admin Dose Admin Nitroglycerin 0.4 mg Q5MINP PRN SL 07/19/24 19:00 Morphine Sulfate 2 mg Q30M PRN IV 07/19/24 19:00 Digoxin 0.125 mg DAILY PO 07/20/24 10:00 07/24/24 10:05 0.125 MG Finasteride 5 mg DAILY PO 07/20/24 10:00 07/24/24 10:10 5 MG Glipizide 5 mg BID PO 07/19/24 22:00 07/24/24 21:34 5 MG Pantoprazole Sodium 40 mg DAILY PO 07/20/24 10:00 07/24/24 10:04 40 MG Tamsulosin HCl 0.4 mg QPM PO 07/22/24 18:00 07/24/24 17:42 0.4 MG Ceftriaxone Sodium/Dextrose 50 ml @ 50 mls/hr DAILY IV 07/22/24 14:00 07/24/24 10:03 50 MLS/HR Insulin Human Lispro HS SC 07/22/24 13:15 07/24/24 21:35 9 UNITS Enteral Nutritional Formula 240 ml TIDWM PO 07/22/24 18:00 07/25/24 08:15 240 ML Megestrol Acetate 40 mg AC PO 07/22/24 17:00 07/25/24 06:21 40 MG Micafungin Sodium 100 mg/Sodium Chloride 100 ml @ 100 mls/hr Q24H IV 07/24/24 15:00 08/07/24 14:59 Cancel Micafungin Sodium 100 mg/Sodium Chloride 100 ml @ 100 mls/hr DAILY IV 07/25/24 10:00 Insulin Human Lispro AC SC 07/24/24 21:45 07/25/24 06:22 2 UNITS Sodium Chloride 1,000 ml @ 40 mls/hr Q24H IV 07/24/24 21:45 07/24/24 22:56 40 MLS/HR laboratory and microbiology Laboratory Tests 07/25/24 05:25 Test 07/25/24 05:25 Range/Units Serum Glucose 127 H 74-106 mg/dL Assessment/Plan Problems(with codes): (1) UTI (urinary tract infection) (2) Bradycardia (3) Altered level of consciousness (4) Dehydration (5) Hydronephrosis (6) Sepsis (7) Failure to thrive (8) Vwpym-ro-bfnnovn kidney injury 1. revise sliding scale 3. await renal scan Dietary Evaluation Review Comments: Diet for CKD, non HD, Renal Specific-50g protein restriction with 2gNa, 3K, low phos, if on HD, Renal Standard 2gNa 3K, low phos. Expected Outcomes/Goals: Avoid uremic syndrome. EMY BETH MD Jul 25, 2024 10:05
[2024-07-25] MEDS: MICAFUNGIN SODIUM 100 MG in SODIUM CHL 0.9% 100 ML IV SCH (10:57)
--- NOTE | 2024-07-25 15:40 | DVHPN2 ---
Progress Note - Dictate Date Seen: Jul 25, 2024 Medical Necessity Reason Pt with a Central, PICC or Fol: Yes The following are medically ne: Valenzuela Catheter Reason for valenzuela catheter: Bladder Retention/Obstruc, Strict I&O vital signs Vital Sign Date Time Temp Pulse Resp B/P (MAP) Pulse Ox O2 Delivery O2 Flow Rate FiO2 07/25/24 13:00 97.8 89 17 127/64 (85) 95 97.8 07/25/24 07:30 Room Air* 0 21 Total Intake and Output 07/24/24 07/24/24 07/25/24 14:59 22:59 06:59 Intake Total 524 ml 1160 ml 150 ml Output Total 700 ml 300 ml Balance 524 ml 460 ml -150 ml medications Current Medications Medications Dose Ordered Sig/Rudy Route Start Time Stop Time Status Last Admin Dose Admin Nitroglycerin 0.4 mg Q5MINP PRN SL 07/19/24 19:00 Morphine Sulfate 2 mg Q30M PRN IV 07/19/24 19:00 Digoxin 0.125 mg DAILY PO 07/20/24 10:00 07/25/24 10:59 0.125 MG Finasteride 5 mg DAILY PO 07/20/24 10:00 07/25/24 10:58 5 MG Glipizide 5 mg BID PO 07/19/24 22:00 07/25/24 10:58 5 MG Pantoprazole Sodium 40 mg DAILY PO 07/20/24 10:00 07/25/24 10:58 40 MG Tamsulosin HCl 0.4 mg QPM PO 07/22/24 18:00 07/24/24 17:42 0.4 MG Ceftriaxone Sodium/Dextrose 50 ml @ 50 mls/hr DAILY IV 07/22/24 14:00 07/25/24 10:57 50 MLS/HR Insulin Human Lispro HS SC 07/22/24 13:15 07/24/24 21:35 9 UNITS Enteral Nutritional Formula 240 ml TIDWM PO 07/22/24 18:00 07/25/24 12:00 240 ML Megestrol Acetate 40 mg AC PO 07/22/24 17:00 07/25/24 10:59 40 MG Micafungin Sodium 100 mg/Sodium Chloride 100 ml @ 100 mls/hr Q24H IV 07/24/24 15:00 08/07/24 14:59 Cancel Micafungin Sodium 100 mg/Sodium Chloride 100 ml @ 100 mls/hr DAILY IV 07/25/24 10:00 07/25/24 10:57 100 MLS/HR Insulin Human Lispro AC SC 07/24/24 21:45 07/25/24 12:46 12 UNITS Sodium Chloride 1,000 ml @ 40 mls/hr Q24H IV 07/24/24 21:45 07/24/24 22:56 40 MLS/HR laboratory and microbiology Laboratory Tests 07/25/24 05:25 Test 07/25/24 05:25 Range/Units Serum Glucose 127 H 74-106 mg/dL Assessment/Plan d/c with valenzuela to leg bag f/u outpt for cysto with RPG possible stent placement flomax daily Problems(with codes): (1) Euczi-dk-nqbwnvl kidney injury (2) Hydronephrosis (3) BPH (benign prostatic hyperplasia) (4) Dehydration (5) Failure to thrive Prognosis fair Dietary Evaluation Review Comments: Diet for CKD, non HD, Renal Specific-50g protein restriction with 2gNa, 3K, low phos, if on HD, Renal Standard 2gNa 3K, low phos. Expected Outcomes/Goals: Avoid uremic syndrome. Plan discussed with: Other Total Time (mins): 25 CELINE CARRERO NP Jul 25, 2024 15:40
[2024-07-25] MEDS: InsuLIN REG 1unit/0.01ml Soln (100units/ml) IV ONE (18:19)
[2024-07-25] MEDS: INSULIN LANTUS (GLARGINE) 1 /0.01ml (100units/ml) SC ONE (18:20)
[2024-07-25 18:40] LABS: Chloride 101 mmol/L (98-107); Potassium 3.4 mmol/L (3.5-5.1); Sodium 135 mmol/L (136-145)
[2024-07-25 18:41] LABS: Anion Gap 8 (5-15); Carbon Dioxide 26 mmol/L (20-31)
[2024-07-25 18:42] LABS: Calcium 8.6 mg/dL (8.7-10.4)
[2024-07-25 18:47] LABS: Blood Urea Nitrogen 52 mg/dL (9-23)
[2024-07-25 18:50] LABS: Glucose 396 mg/dL (74-106)
--- NOTE | 2024-07-25 21:59 | DVHPN2 ---
Consult Progress Note Date Seen: Jul 25, 2024 Subjective Patient reports: Feels better (had nuclear medicine scane done , working with physical therapy . more alert and aware , blood pressure is good , nutrition has recommended renal specific diet ) Objective vital signs Vital Sign Date Time Temp Pulse Resp B/P (MAP) Pulse Ox O2 Delivery O2 Flow Rate FiO2 07/25/24 21:00 97.9 90 17 111/57 (75) 95 97.9 07/25/24 07:30 Room Air* 0 21 Total Intake and Output 07/24/24 07/24/24 07/25/24 15:00 23:00 07:00 Intake Total 524 ml 1160 ml 150 ml Output Total 700 ml 300 ml Balance 524 ml 460 ml -150 ml medications Current Medications Medications Dose Ordered Sig/Rudy Route Start Time Stop Time Status Last Admin Dose Admin Nitroglycerin 0.4 mg Q5MINP PRN SL 07/19/24 19:00 Morphine Sulfate 2 mg Q30M PRN IV 07/19/24 19:00 Digoxin 0.125 mg DAILY PO 07/20/24 10:00 07/25/24 10:59 0.125 MG Finasteride 5 mg DAILY PO 07/20/24 10:00 07/25/24 10:58 5 MG Glipizide 5 mg BID PO 07/19/24 22:00 07/25/24 21:21 5 MG Pantoprazole Sodium 40 mg DAILY PO 07/20/24 10:00 07/25/24 10:58 40 MG Tamsulosin HCl 0.4 mg QPM PO 07/22/24 18:00 07/25/24 18:16 0.4 MG Insulin Human Lispro HS SC 07/22/24 13:15 07/25/24 21:26 9 UNITS Enteral Nutritional Formula 240 ml TIDWM PO 07/22/24 18:00 07/25/24 18:16 240 ML Megestrol Acetate 40 mg AC PO 07/22/24 17:00 07/25/24 18:16 40 MG Micafungin Sodium 100 mg/Sodium Chloride 100 ml @ 100 mls/hr Q24H IV 07/24/24 15:00 08/07/24 14:59 Cancel Micafungin Sodium 100 mg/Sodium Chloride 100 ml @ 100 mls/hr DAILY IV 07/25/24 10:00 07/25/24 10:57 100 MLS/HR Insulin Human Lispro AC SC 07/24/24 21:45 07/25/24 18:21 18 UNITS Sodium Chloride 1,000 ml @ 40 mls/hr Q24H IV 07/24/24 21:45 07/25/24 21:20 40 MLS/HR Insulin Glargine 5 units DAILY@DINNER SC 07/26/24 17:30 Ceftriaxone Sodium/Dextrose 50 ml @ 50 mls/hr DAILY IV 07/26/24 10:00 Physical Exam: General: NAD Neck: Supple. No masses. HEENT: PERRL. Normal lids and conjunctiva. Moist mucous membranes. Oropharynx without lesions, exudates, or excessive erythema. Normal appearance of the external aspects of the nose and ears. Heart: Regular rhythm, normal rate. No murmur. No lower extremity edema. Lungs: Normal respiratory effort. Clear to auscultation bilaterally. No wheezes. No crackles. Abdomen: Soft. Non-tender. Non-distended. No masses or abdominal hernia. Msk: No digital cyanosis. Normal strength and tone in all 4 limbs. Skin: Warm and dry, no rashes. Neuro: Alert. No facial droop or slurred speech. Extra-ocular movements intact. Sensation intact to soft touch in all 4 limbs. Psych: Appropriate mood. Full affect. Oriented to person, place, time, and situation. laboratory and microbiology Laboratory Tests 07/25/24 18:06 07/25/24 05:25 Test 07/25/24 18:06 Range/Units Serum Glucose 396 #H 74-106 mg/dL Problem List/Assessment/Plan Problems(with codes): (1) Hypotension (2) Septic shock (3) Mtjsd-pl-eaxwykz kidney injury (4) Acute exacerbation of CHF (congestive heart failure) (5) Altered level of consciousness (6) UTI (urinary tract infection) (7) Sepsis (8) Bradycardia (9) Dehydration Problem List/Assessment/Plan (1) UTI (urinary tract infection) (2) Bradycardia (3) Altered level of consciousness (4) Dehydration (5) Hydronephrosis (6) Sepsis (7) Failure to thrive (8) Lrnqs-gv-wtbedtk kidney injury (9) Acute exacerbation of CHF (congestive heart failure) (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 He feels very weak, especially in his legs, and has difficulty walking. No current antibiotics. Blood pressure and glucose levels have been fluctuating. Recent ER visit provided a short course of antibiotics. 1. Possible urinary tract inflammation (suspected interstitial cystitis). 2. Acute weakness, especially in the legs. 3. Unstable vital signs, particularly concerning low blood pressure. Septic Shock 4. Elevated blood glucose levels suggesting poor glycemic control. 5. Risk of potential bladder or prostate conditions, considering patient history and slightly elevated prostate level. 6. General suspicion of systemic infection due to low blood pressure and leg weakness. 07/20: Urine cultures are showing young colonies ,awaiting blood cultures. 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 Appears large heterogeneous correlated with PSA recommended small urinary bladder diverticula. 07/21: brain CT and MRI negative for stroke. and TTE w/ grade 1 diastolic dysfunction 07/24; patient is growing yeast in urine , awaiting scan for kidneys 07/25: Nuclear medicine scan shows patient has a untilization distribution of left kidney of 25% and 75% on the right Plan: -urology recommends outpatient cystoscopy as well as stem placement and go home with a valenzuela bag in place , Agree with this plan - Recommend IV mycofungen - defer to primary team management for patients weakness and nutritional deficiencies - recommend urology consult for bilateral hydronephrosis as well as for prostatomegaly , pyuria and brown urine. --> urology recommending NM scan - patient follow up outpatient with infectoius disease recommend physical therapy -recommend nutrition consult -prepare for discharge - follow up on blood cultures 1. Continue ceftriaxone , recommend adding micafungin to regimen until fungal ball has been rolled out ( 2 weeks via minline ) 2. Initiate intravenous fluids to manage low BP and address potential dehydration. 4. Monitor kidney function due to elevated creatinine. 6. Monitor glucose levels closely and adjust antidiabetic medications as needed. 7. Rule out bladder and prostate cancer through relevant investigations. 8. Ensure follow-up on blood thinner management given the weak condition. Plan discussed with: Other Dietary Evaluation Review Comments: Diet for CKD, non HD, Renal Specific-50g protein restriction with 2gNa, 3K, low phos, if on HD, Renal Standard 2gNa 3K, low phos. Expected Outcomes/Goals: Avoid uremic syndrome. BRYCE THOMAS MD Jul 25, 2024 21:59
[2024-07-26] MEDS: HYDROMORPHONE HCL 1 MG/ML INJ IV ONE (01:45)
[2024-07-26 05:36] VITALS: BP 119/65; PULSE 84; RESP 18; TEMP 98; O2SAT 97
[2024-07-26 07:30] VITALS: PULSE 82; PULSE 90; RESP 15; O2SAT 98
[2024-07-26] MEDS: cefTRIAXone 2GM/50ML D5W 50 ML IV SCH (10:10)
--- NOTE | 2024-07-26 11:36 | DVHPN2 ---
Progress Note - Dictate Medical Necessity Reason Pt with a Central, PICC or Fol: Yes The following are medically ne: Valenzuela Catheter Reason for valenzuela catheter: Bladder Retention/Obstruc, Strict I&O Subjective Bs >400-450s for last 2 days Revsed Humalog scale and Added inj. Lantus Renal scan-25 % of L renal, 60% of R renal seen by urology- out pt stent placement 2d echo-EF 60% pending urine C S pos for yeast case d/w dr. Pan Beth Micafungin is added vital signs Vital Sign Date Time Temp Pulse Resp B/P (MAP) Pulse Ox O2 Delivery O2 Flow Rate FiO2 07/26/24 10:08 84 07/26/24 05:36 98.0 18 119/65 (83) 97 98.0 07/25/24 20:00 Room Air* 0 21 Total Intake and Output 07/25/24 07/25/24 07/26/24 15:00 23:00 07:00 Intake Total 400 ml 1120 ml 300 ml Output Total 1100 ml 1100 ml Balance 400 ml 20 ml -800 ml medications Current Medications Medications Dose Ordered Sig/Rudy Route Start Time Stop Time Status Last Admin Dose Admin Nitroglycerin 0.4 mg Q5MINP PRN SL 07/19/24 19:00 Morphine Sulfate 2 mg Q30M PRN IV 07/19/24 19:00 Digoxin 0.125 mg DAILY PO 07/20/24 10:00 07/26/24 10:08 0.125 MG Finasteride 5 mg DAILY PO 07/20/24 10:00 07/26/24 10:08 5 MG Glipizide 5 mg BID PO 07/19/24 22:00 07/26/24 10:09 5 MG Pantoprazole Sodium 40 mg DAILY PO 07/20/24 10:00 07/26/24 10:08 40 MG Tamsulosin HCl 0.4 mg QPM PO 07/22/24 18:00 07/25/24 18:16 0.4 MG Insulin Human Lispro HS SC 07/22/24 13:15 07/25/24 21:26 9 UNITS Enteral Nutritional Formula 240 ml TIDWM PO 07/22/24 18:00 07/26/24 08:30 240 ML Megestrol Acetate 40 mg AC PO 07/22/24 17:00 07/26/24 06:30 40 MG Micafungin Sodium 100 mg/Sodium Chloride 100 ml @ 100 mls/hr Q24H IV 07/24/24 15:00 08/07/24 14:59 Cancel Micafungin Sodium 100 mg/Sodium Chloride 100 ml @ 100 mls/hr DAILY IV 07/25/24 10:00 07/26/24 10:11 100 MLS/HR Insulin Human Lispro AC SC 07/24/24 21:45 07/26/24 06:35 2 UNITS Sodium Chloride 1,000 ml @ 40 mls/hr Q24H IV 07/24/24 21:45 07/25/24 21:20 40 MLS/HR Insulin Glargine 5 units DAILY@DINNER SC 07/26/24 17:30 Ceftriaxone Sodium/Dextrose 50 ml @ 50 mls/hr DAILY IV 07/26/24 10:00 07/26/24 10:10 50 MLS/HR laboratory and microbiology Laboratory Tests 07/25/24 18:06 07/25/24 05:25 Test 07/25/24 18:06 Range/Units Serum Glucose 396 #H 74-106 mg/dL Assessment/Plan Problems(with codes): (1) UTI (urinary tract infection) (2) Bradycardia (3) Altered level of consciousness (4) Dehydration (5) Hydronephrosis (6) Sepsis (7) Failure to thrive (8) Fwzpf-xv-gzumohc kidney injury 1. revise sliding scale 3. await renal scan Dietary Evaluation Review Comments: Diet for CKD, non HD, Renal Specific-50g protein restriction with 2gNa, 3K, low phos, if on HD, Renal Standard 2gNa 3K, low phos. Expected Outcomes/Goals: Avoid uremic syndrome. EMY BETH MD Jul 26, 2024 11:35
[2024-07-26] MEDS: INSULIN LANTUS (GLARGINE) 1 /0.01ml (100units/ml) SC SCH (12:24)
[2024-07-26 13:00] VITALS: BP 114/57; PULSE 84; RESP 17; TEMP 97.7; O2SAT 98
[2024-07-26 17:00] VITALS: BP 147/85; PULSE 99; RESP 18; TEMP 97.8; O2SAT 98
[2024-07-26] MEDS ORDERED: INSULIN LANTUS (GLARGINE) 1 /0.01ml (100units/ml) SC SCH (17:30)
[2024-07-26 20:00] VITALS: PULSE 83; PULSE 87; RESP 18; O2SAT 97
[2024-07-26 21:00] VITALS: BP 122/57; PULSE 87; RESP 16; TEMP 97.6; O2SAT 98
--- NOTE | 2024-07-26 22:41 | DVHPN2 ---
Consult Progress Note Date Seen: Jul 26, 2024 Subjective Patient reports: Other (bit of abdominal pain , unclear why. normal bowel movements. blood sugars are elevated) Objective vital signs Vital Sign Date Time Temp Pulse Resp B/P (MAP) Pulse Ox O2 Delivery O2 Flow Rate FiO2 07/26/24 21:00 97.6 87 16 122/57 (78) 98 97.6 07/26/24 20:00 Room Air* 0 21 Total Intake and Output 07/25/24 07/25/24 07/26/24 15:00 23:00 07:00 Intake Total 400 ml 1120 ml 300 ml Output Total 1100 ml 1100 ml Balance 400 ml 20 ml -800 ml medications Current Medications Medications Dose Ordered Sig/Rudy Route Start Time Stop Time Status Last Admin Dose Admin Nitroglycerin 0.4 mg Q5MINP PRN SL 07/19/24 19:00 Morphine Sulfate 2 mg Q30M PRN IV 07/19/24 19:00 Digoxin 0.125 mg DAILY PO 07/20/24 10:00 07/26/24 10:08 0.125 MG Finasteride 5 mg DAILY PO 07/20/24 10:00 07/26/24 10:08 5 MG Glipizide 5 mg BID PO 07/19/24 22:00 07/26/24 20:47 5 MG Pantoprazole Sodium 40 mg DAILY PO 07/20/24 10:00 07/26/24 10:08 40 MG Tamsulosin HCl 0.4 mg QPM PO 07/22/24 18:00 07/26/24 17:37 0.4 MG Insulin Human Lispro HS SC 07/22/24 13:15 07/26/24 20:47 9 UNITS Enteral Nutritional Formula 240 ml TIDWM PO 07/22/24 18:00 07/26/24 17:38 240 ML Megestrol Acetate 40 mg AC PO 07/22/24 17:00 07/26/24 17:34 40 MG Micafungin Sodium 100 mg/Sodium Chloride 100 ml @ 100 mls/hr Q24H IV 07/24/24 15:00 08/07/24 14:59 Cancel Micafungin Sodium 100 mg/Sodium Chloride 100 ml @ 100 mls/hr DAILY IV 07/25/24 10:00 07/26/24 10:11 100 MLS/HR Insulin Human Lispro AC SC 07/24/24 21:45 07/26/24 17:36 12 UNITS Sodium Chloride 1,000 ml @ 40 mls/hr Q24H IV 07/24/24 21:45 07/26/24 20:48 40 MLS/HR Ceftriaxone Sodium/Dextrose 50 ml @ 50 mls/hr DAILY IV 07/26/24 10:00 07/26/24 10:10 50 MLS/HR Insulin Glargine 7 units DAILY@DINNER [place] 07/26/24 11:30 07/26/24 17:36 7 UNITS Physical Exam: General: NAD Neck: Supple. No masses. HEENT: PERRL. Normal lids and conjunctiva. Moist mucous membranes. Oropharynx without lesions, exudates, or excessive erythema. Normal appearance of the external aspects of the nose and ears. Heart: Regular rhythm, normal rate. No murmur. No lower extremity edema. Lungs: Normal respiratory effort. Clear to auscultation bilaterally. No wheezes. No crackles. Abdomen: Soft. Non-tender. distended. No masses or abdominal hernia. hypoactive bowel sounds Msk: No digital cyanosis. Normal strength and tone in all 4 limbs. Skin: Warm and dry, no rashes. Neuro: Alert. No facial droop or slurred speech. Extra-ocular movements intact. Sensation intact to soft touch in all 4 limbs. Psych: Appropriate mood. Full affect. Oriented to person, place, time, and situation. laboratory and microbiology Laboratory Tests 07/25/24 18:06 07/25/24 05:25 Test 07/25/24 18:06 Range/Units Serum Glucose 396 #H 74-106 mg/dL Problem List/Assessment/Plan Problems(with codes): (1) UTI (urinary tract infection) (2) Bradycardia (3) Sepsis (4) Altered level of consciousness (5) Acute exacerbation of CHF (congestive heart failure) (6) Ljbag-es-iobbtyo kidney injury (7) Septic shock (8) Hypotension Problem List/Assessment/Plan (1) UTI (urinary tract infection) (2) Bradycardia (3) Altered level of consciousness (4) Dehydration (5) Hydronephrosis (6) Sepsis (7) Failure to thrive (8) Jrawf-og-gyjdlzz kidney injury (9) Acute exacerbation of CHF (congestive heart failure) (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 He feels very weak, especially in his legs, and has difficulty walking. No current antibiotics. Blood pressure and glucose levels have been fluctuating. Recent ER visit provided a short course of antibiotics. 1. Possible urinary tract inflammation (suspected interstitial cystitis). 2. Acute weakness, especially in the legs. 3. Unstable vital signs, particularly concerning low blood pressure. Septic Shock 4. Elevated blood glucose levels suggesting poor glycemic control. 5. Risk of potential bladder or prostate conditions, considering patient history and slightly elevated prostate level. 6. General suspicion of systemic infection due to low blood pressure and leg weakness. 07/20: Urine cultures are showing young colonies ,awaiting blood cultures. 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 Appears large heterogeneous correlated with PSA recommended small urinary bladder diverticula. 07/21: brain CT and MRI negative for stroke. and TTE w/ grade 1 diastolic dysfunction 07/24; patient is growing yeast in urine , awaiting scan for kidneys 07/25: Nuclear medicine scan shows patient has a untilization distribution of left kidney of 25% and 75% on the right 07/26: patient has high blood sugars, mildly distened abdomen recommend HB supply. Plan: - recommend KB _ recommend blood sugar control by primary team - recommend blood cultures -urology recommends outpatient cystoscopy as well as stem placement and go home with a valenzuela bag in place , Agree with this plan - Recommend IV mycofungen - defer to primary team management for patients weakness and nutritional deficiencies - recommend urology consult for bilateral hydronephrosis as well as for prostatomegaly , pyuria and brown urine. --> urology recommending NM scan - patient follow up outpatient with infectoius disease recommend physical therapy -recommend nutrition consult -prepare for discharge - follow up on blood cultures 1. Continue ceftriaxone , recommend adding micafungin to regimen until fungal ball has been rolled out ( 2 weeks via minline ) 2. Initiate intravenous fluids to manage low BP and address potential dehydration. 4. Monitor kidney function due to elevated creatinine. 6. Monitor glucose levels closely and adjust antidiabetic medications as needed. 7. Rule out bladder and prostate cancer through relevant investigations. 8. Ensure follow-up on blood thinner management given the weak condition. Plan discussed with: Other Dietary Evaluation Review Comments: Diet for CKD, non HD, Renal Specific-50g protein restriction with 2gNa, 3K, low phos, if on HD, Renal Standard 2gNa 3K, low phos. Expected Outcomes/Goals: Avoid uremic syndrome. BRYCE THOMAS MD Jul 26, 2024 22:41
--- NOTE | 2024-07-26 22:50 | DVH ---
Date: 07/26/2024 08:58 PM Examination: XY KUB ABDOMEN SINGLE VIEW History: abdominal distention Comparison: None TECHNIQUE: Frontal views of the abdomen was obtained. FINDINGS: Bowel gas pattern is unremarkable. The lung bases are unremarkable. No acute osseous abnormality identified. IMPRESSION: 1. Nonobstructive bowel gas pattern.
[2024-07-27] VITALS (7 sets, daily range): BP systolic 109–135; BP diastolic 48–68; PULSE 72–91; RESP 16–19; TEMP 97.4–99.9; O2SAT 92–95
--- NOTE | 2024-07-27 22:00 | DVHPN2 ---
Consult Progress Note Date Seen: Jul 27, 2024 Subjective Patient reports: Feels better (working on preparation for home, patient accidentally removed midline and is working on getting it replaced ) Objective vital signs Vital Sign Date Time Temp Pulse Resp B/P (MAP) Pulse Ox O2 Delivery O2 Flow Rate FiO2 07/27/24 21:00 97.7 91 18 135/60 (85) 95 97.7 07/27/24 08:00 Room Air* 0 21 Total Intake and Output 07/26/24 07/26/24 07/27/24 15:00 23:00 07:00 Intake Total 100 ml 1695 ml 450 ml Output Total 1400 ml 950 ml Balance 100 ml 295 ml -500 ml medications Current Medications Medications Dose Ordered Sig/Rudy Route Start Time Stop Time Status Last Admin Dose Admin Nitroglycerin 0.4 mg Q5MINP PRN SL 07/19/24 19:00 Morphine Sulfate 2 mg Q30M PRN IV 07/19/24 19:00 Digoxin 0.125 mg DAILY PO 07/20/24 10:00 07/27/24 08:45 0.125 MG Finasteride 5 mg DAILY PO 07/20/24 10:00 07/27/24 08:45 5 MG Glipizide 5 mg BID PO 07/19/24 22:00 07/27/24 21:23 5 MG Pantoprazole Sodium 40 mg DAILY PO 07/20/24 10:00 07/27/24 08:49 40 MG Tamsulosin HCl 0.4 mg QPM PO 07/22/24 18:00 07/27/24 17:14 0.4 MG Insulin Human Lispro HS SC 07/22/24 13:15 07/27/24 21:26 7 UNITS Enteral Nutritional Formula 240 ml TIDWM PO 07/22/24 18:00 07/27/24 18:29 240 ML Megestrol Acetate 40 mg AC PO 07/22/24 17:00 07/27/24 17:14 40 MG Micafungin Sodium 100 mg/Sodium Chloride 100 ml @ 100 mls/hr Q24H IV 07/24/24 15:00 08/07/24 14:59 Cancel Micafungin Sodium 100 mg/Sodium Chloride 100 ml @ 100 mls/hr DAILY IV 07/25/24 10:00 07/27/24 12:37 100 MLS/HR Insulin Human Lispro AC SC 07/24/24 21:45 07/27/24 17:16 8 UNITS Sodium Chloride 1,000 ml @ 40 mls/hr Q24H IV 07/24/24 21:45 07/27/24 21:17 40 MLS/HR Ceftriaxone Sodium/Dextrose 50 ml @ 50 mls/hr DAILY IV 07/26/24 10:00 07/27/24 11:30 50 MLS/HR Insulin Glargine 7 units DAILY@DINNER [place] 07/26/24 11:30 07/27/24 17:15 7 UNITS Physical Exam: General: NAD Neck: Supple. No masses. HEENT: PERRL. Normal lids and conjunctiva. Moist mucous membranes. Oropharynx without lesions, exudates, or excessive erythema. Normal appearance of the external aspects of the nose and ears. Heart: Regular rhythm, normal rate. No murmur. No lower extremity edema. Lungs: Normal respiratory effort. Clear to auscultation bilaterally. No wheezes. No crackles. Abdomen: Soft. Non-tender. distended. No masses or abdominal hernia. hypoactive bowel sounds Msk: No digital cyanosis. Normal strength and tone in all 4 limbs. Skin: Warm and dry, no rashes. Neuro: Alert. No facial droop or slurred speech. Extra-ocular movements intact. Sensation intact to soft touch in all 4 limbs. Psych: Appropriate mood. Full affect. Oriented to person, place, time, and situation. laboratory and microbiology Laboratory Tests 07/25/24 18:06 07/25/24 05:25 Test 07/25/24 18:06 Range/Units Serum Glucose 396 #H 74-106 mg/dL Problem List/Assessment/Plan Problems(with codes): (1) Hypotension (2) Septic shock (3) Fpkbb-xm-cmsaddw kidney injury (4) Acute exacerbation of CHF (congestive heart failure) (5) Altered level of consciousness (6) UTI (urinary tract infection) (7) Bradycardia (8) BPH (benign prostatic hyperplasia) (9) Dehydration Problem List/Assessment/Plan (1) UTI (urinary tract infection) (2) Bradycardia (3) Altered level of consciousness (4) Dehydration (5) Hydronephrosis (6) Sepsis (7) Failure to thrive (8) Ozbmi-kn-lpsrhsj kidney injury (9) Acute exacerbation of CHF (congestive heart failure) (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 He feels very weak, especially in his legs, and has difficulty walking. No current antibiotics. Blood pressure and glucose levels have been fluctuating. Recent ER visit provided a short course of antibiotics. 1. Possible urinary tract inflammation (suspected interstitial cystitis). 2. Acute weakness, especially in the legs. 3. Unstable vital signs, particularly concerning low blood pressure. Septic Shock 4. Elevated blood glucose levels suggesting poor glycemic control. 5. Risk of potential bladder or prostate conditions, considering patient history and slightly elevated prostate level. 6. General suspicion of systemic infection due to low blood pressure and leg weakness. 07/20: Urine cultures are showing young colonies ,awaiting blood cultures. 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 Appears large heterogeneous correlated with PSA recommended small urinary bladder diverticula. 07/21: brain CT and MRI negative for stroke. and TTE w/ grade 1 diastolic dysfunction 07/24; patient is growing yeast in urine , awaiting scan for kidneys 07/25: Nuclear medicine scan shows patient has a untilization distribution of left kidney of 25% and 75% on the right 07/26: patient has high blood sugars, mildly distened abdomen recommend HB supply. Plan: - recommend KB _ recommend blood sugar control by primary team - recommend blood cultures -urology recommends outpatient cystoscopy as well as stem placement and go home with a valenzuela bag in place , Agree with this plan - Recommend IV mycofungen - defer to primary team management for patients weakness and nutritional deficiencies - recommend urology consult for bilateral hydronephrosis as well as for prostatomegaly , pyuria and brown urine. --> urology recommending NM scan - patient follow up outpatient with infectoius disease recommend physical therapy -recommend nutrition consult -prepare for discharge - follow up on blood cultures 1. Continue ceftriaxone , recommend adding micafungin to regimen until fungal ball has been rolled out ( 2 weeks via minline ) 2. Initiate intravenous fluids to manage low BP and address potential dehydration. 4. Monitor kidney function due to elevated creatinine. 6. Monitor glucose levels closely and adjust antidiabetic medications as needed. 7. Rule out bladder and prostate cancer through relevant investigations. 8. Ensure follow-up on blood thinner management given the weak condition. Plan discussed with: Other Dietary Evaluation Review Comments: Diet for CKD, non HD, Renal Specific-50g protein restriction with 2gNa, 3K, low phos, if on HD, Renal Standard 2gNa 3K, low phos. Expected Outcomes/Goals: Avoid uremic syndrome. BRYCE THOMAS MD Jul 27, 2024 22:00
[2024-07-28] VITALS (8 sets, daily range): BP systolic 117–137; BP diastolic 49–64; PULSE 64–82; RESP 16–18; TEMP 97.3–98.6; O2SAT 95–96
--- NOTE | 2024-07-28 00:47 | DVHPN2 ---
Progress Note - Dictate Date Seen: Jul 27, 2024 Medical Necessity Reason Pt with a Central, PICC or Fol: Yes The following are medically ne: Valenzuela Catheter Reason for valenzuela catheter: Bladder Retention/Obstruc, Strict I&O Subjective Bs coming under fair control Revsed Humalog scale and Added inj. Lantus Renal scan-25 % of L renal, 60% of R renal seen by urology- out pt stent placement 2d echo-EF 60% urine C S pos for yeast case d/w dr. Pan Beth Continued on IV Micafungin Noted mid line fell out rec replacement of mid line vital signs Vital Sign Date Time Temp Pulse Resp B/P (MAP) Pulse Ox O2 Delivery O2 Flow Rate FiO2 07/27/24 21:00 97.7 91 18 135/60 (85) 95 97.7 07/27/24 20:00 Room Air* 0 21 Total Intake and Output 07/27/24 07/27/24 07/28/24 15:00 23:00 07:00 Intake Total 1070 ml Output Total 810 ml Balance 260 ml medications Current Medications Medications Dose Ordered Sig/Rudy Route Start Time Stop Time Status Last Admin Dose Admin Nitroglycerin 0.4 mg Q5MINP PRN SL 07/19/24 19:00 Morphine Sulfate 2 mg Q30M PRN IV 07/19/24 19:00 Digoxin 0.125 mg DAILY PO 07/20/24 10:00 07/27/24 08:45 0.125 MG Finasteride 5 mg DAILY PO 07/20/24 10:00 07/27/24 08:45 5 MG Glipizide 5 mg BID PO 07/19/24 22:00 07/27/24 21:23 5 MG Pantoprazole Sodium 40 mg DAILY PO 07/20/24 10:00 07/27/24 08:49 40 MG Tamsulosin HCl 0.4 mg QPM PO 07/22/24 18:00 07/27/24 17:14 0.4 MG Insulin Human Lispro HS SC 07/22/24 13:15 07/27/24 21:26 7 UNITS Enteral Nutritional Formula 240 ml TIDWM PO 07/22/24 18:00 07/27/24 18:29 240 ML Megestrol Acetate 40 mg AC PO 07/22/24 17:00 07/27/24 17:14 40 MG Micafungin Sodium 100 mg/Sodium Chloride 100 ml @ 100 mls/hr Q24H IV 07/24/24 15:00 08/07/24 14:59 Cancel Micafungin Sodium 100 mg/Sodium Chloride 100 ml @ 100 mls/hr DAILY IV 07/25/24 10:00 07/27/24 12:37 100 MLS/HR Insulin Human Lispro AC SC 07/24/24 21:45 07/27/24 17:16 8 UNITS Sodium Chloride 1,000 ml @ 40 mls/hr Q24H IV 07/24/24 21:45 07/27/24 21:17 40 MLS/HR Ceftriaxone Sodium/Dextrose 50 ml @ 50 mls/hr DAILY IV 07/26/24 10:00 07/27/24 11:30 50 MLS/HR Insulin Glargine 7 units DAILY@DINNER [place] 07/26/24 11:30 07/27/24 17:15 7 UNITS laboratory and microbiology Laboratory Tests 07/25/24 18:06 07/25/24 05:25 Test 07/25/24 18:06 Range/Units Serum Glucose 396 #H 74-106 mg/dL Assessment/Plan Problems(with codes): (1) UTI (urinary tract infection) (2) Bradycardia (3) Altered level of consciousness (4) Dehydration (5) Hydronephrosis (6) Sepsis (7) Failure to thrive (8) Jsixh-mt-ewbflwu kidney injury 1. revise sliding scale 3. await renal scan Dietary Evaluation Review Comments: Diet for CKD, non HD, Renal Specific-50g protein restriction with 2gNa, 3K, low phos, if on HD, Renal Standard 2gNa 3K, low phos. Expected Outcomes/Goals: Avoid uremic syndrome. EMY BETH MD Jul 28, 2024 00:47
--- NOTE | 2024-07-28 19:45 | DVHPN2 ---
Progress Note - Dictate Date Seen: Jul 28, 2024 Medical Necessity Reason Pt with a Central, PICC or Fol: Yes The following are medically ne: Valenzuela Catheter Reason for valenzuela catheter: Bladder Retention/Obstruc, Strict I&O Subjective Bs coming under fair control Revsed Humalog scale and Added inj. Lantus Renal scan-25 % of L renal, 60% of R renal seen by urology- out pt stent placement 2d echo-EF 60% urine C S pos for yeast case d/w dr. Pan Beth Continued on IV Micafungin Noted mid line fell out rec replacement of mid line vital signs Vital Sign Date Time Temp Pulse Resp B/P (MAP) Pulse Ox O2 Delivery O2 Flow Rate FiO2 07/28/24 17:00 98.3 82 18 117/62 (80) 96 98.3 07/28/24 08:00 Room Air* 0 21 Total Intake and Output 07/27/24 07/27/24 07/28/24 15:00 23:00 07:00 Intake Total 1070 ml 120 ml Output Total 810 ml 750 ml Balance 260 ml -630 ml medications Current Medications Medications Dose Ordered Sig/Rudy Route Start Time Stop Time Status Last Admin Dose Admin Nitroglycerin 0.4 mg Q5MINP PRN SL 07/19/24 19:00 Morphine Sulfate 2 mg Q30M PRN IV 07/19/24 19:00 Digoxin 0.125 mg DAILY PO 07/20/24 10:00 07/28/24 09:30 0.125 MG Finasteride 5 mg DAILY PO 07/20/24 10:00 07/28/24 09:28 5 MG Glipizide 5 mg BID PO 07/19/24 22:00 07/28/24 09:29 5 MG Pantoprazole Sodium 40 mg DAILY PO 07/20/24 10:00 07/28/24 09:27 40 MG Tamsulosin HCl 0.4 mg QPM PO 07/22/24 18:00 07/28/24 17:36 0.4 MG Insulin Human Lispro HS SC 07/22/24 13:15 07/27/24 21:26 7 UNITS Enteral Nutritional Formula 240 ml TIDWM PO 07/22/24 18:00 07/28/24 18:44 240 ML Megestrol Acetate 40 mg AC PO 07/22/24 17:00 07/28/24 17:42 40 MG Micafungin Sodium 100 mg/Sodium Chloride 100 ml @ 100 mls/hr Q24H IV 07/24/24 15:00 08/07/24 14:59 Cancel Micafungin Sodium 100 mg/Sodium Chloride 100 ml @ 100 mls/hr DAILY IV 07/25/24 10:00 07/28/24 10:41 100 MLS/HR Insulin Human Lispro AC SC 07/24/24 21:45 07/28/24 12:04 16 UNITS Sodium Chloride 1,000 ml @ 40 mls/hr Q24H IV 07/24/24 21:45 07/27/24 21:17 40 MLS/HR Insulin Glargine 7 units DAILY@DINNER [place] 07/26/24 11:30 07/28/24 17:39 7 UNITS laboratory and microbiology Laboratory Tests 07/25/24 18:06 07/25/24 05:25 Test 07/25/24 18:06 Range/Units Serum Glucose 396 #H 74-106 mg/dL Assessment/Plan Problems(with codes): (1) UTI (urinary tract infection) (2) Bradycardia (3) Altered level of consciousness (4) Dehydration (5) Hydronephrosis (6) Sepsis (7) Failure to thrive (8) Irele-fh-raotodp kidney injury 1. revise sliding scale 3. await renal scan Dietary Evaluation Review Comments: Diet for CKD, non HD, Renal Specific-50g protein restriction with 2gNa, 3K, low phos, if on HD, Renal Standard 2gNa 3K, low phos. Expected Outcomes/Goals: Avoid uremic syndrome. EMY BETH MD Jul 28, 2024 19:45
--- NOTE | 2024-07-28 22:35 | DVHPN2 ---
Consult Progress Note Date Seen: Jul 28, 2024 Subjective Patient reports: Feels better (comfortable eating dinner and having no issues , blood sugars are a bit high ) Objective vital signs Vital Sign Date Time Temp Pulse Resp B/P (MAP) Pulse Ox O2 Delivery O2 Flow Rate FiO2 07/28/24 21:00 97.3 71 17 133/61 (85) 95 97.3 07/28/24 08:00 Room Air* 0 21 Total Intake and Output 07/27/24 07/27/24 07/28/24 15:00 23:00 07:00 Intake Total 1070 ml 120 ml Output Total 810 ml 750 ml Balance 260 ml -630 ml medications Current Medications Medications Dose Ordered Sig/Rudy Route Start Time Stop Time Status Last Admin Dose Admin Nitroglycerin 0.4 mg Q5MINP PRN SL 07/19/24 19:00 Morphine Sulfate 2 mg Q30M PRN IV 07/19/24 19:00 Digoxin 0.125 mg DAILY PO 07/20/24 10:00 07/28/24 09:30 0.125 MG Finasteride 5 mg DAILY PO 07/20/24 10:00 07/28/24 09:28 5 MG Glipizide 5 mg BID PO 07/19/24 22:00 07/28/24 22:07 5 MG Pantoprazole Sodium 40 mg DAILY PO 07/20/24 10:00 07/28/24 09:27 40 MG Tamsulosin HCl 0.4 mg QPM PO 07/22/24 18:00 07/28/24 17:36 0.4 MG Insulin Human Lispro HS SC 07/22/24 13:15 07/27/24 21:26 7 UNITS Enteral Nutritional Formula 240 ml TIDWM PO 07/22/24 18:00 07/28/24 18:44 240 ML Megestrol Acetate 40 mg AC PO 07/22/24 17:00 07/28/24 17:42 40 MG Micafungin Sodium 100 mg/Sodium Chloride 100 ml @ 100 mls/hr Q24H IV 07/24/24 15:00 08/07/24 14:59 Cancel Micafungin Sodium 100 mg/Sodium Chloride 100 ml @ 100 mls/hr DAILY IV 07/25/24 10:00 07/28/24 10:41 100 MLS/HR Insulin Human Lispro AC SC 07/24/24 21:45 07/28/24 12:04 16 UNITS Sodium Chloride 1,000 ml @ 40 mls/hr Q24H IV 07/24/24 21:45 07/28/24 22:05 40 MLS/HR Insulin Glargine 7 units DAILY@DINNER [place] 07/26/24 11:30 07/28/24 17:39 7 UNITS Physical Exam: General: NAD Neck: Supple. No masses. HEENT: PERRL. Normal lids and conjunctiva. Moist mucous membranes. Oropharynx without lesions, exudates, or excessive erythema. Normal appearance of the external aspects of the nose and ears. Heart: Regular rhythm, normal rate. No murmur. No lower extremity edema. Lungs: Normal respiratory effort. Clear to auscultation bilaterally. No wheezes. No crackles. Abdomen: Soft. Non-tender. distended. No masses or abdominal hernia. hypoactive bowel sounds Msk: No digital cyanosis. Normal strength and tone in all 4 limbs. Skin: Warm and dry, no rashes. Neuro: Alert. No facial droop or slurred speech. Extra-ocular movements intact. Sensation intact to soft touch in all 4 limbs. Psych: Appropriate mood. Full affect. Oriented to person, place, time, and situation. laboratory and microbiology Laboratory Tests 07/25/24 18:06 07/25/24 05:25 Test 07/25/24 18:06 Range/Units Serum Glucose 396 #H 74-106 mg/dL Problem List/Assessment/Plan Problems(with codes): (1) Hypotension (2) Septic shock (3) Wmasl-as-deftulz kidney injury (4) Acute exacerbation of CHF (congestive heart failure) (5) Altered level of consciousness (6) UTI (urinary tract infection) (7) Sepsis (8) Bradycardia (9) Hydronephrosis (10) Dehydration (11) BPH (benign prostatic hyperplasia) Problem List/Assessment/Plan (1) UTI (urinary tract infection) (2) Bradycardia (3) Altered level of consciousness (4) Dehydration (5) Hydronephrosis (6) Sepsis (7) Failure to thrive (8) Usezl-yt-ecxhuyc kidney injury (9) Acute exacerbation of CHF (congestive heart failure) (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 He feels very weak, especially in his legs, and has difficulty walking. No current antibiotics. Blood pressure and glucose levels have been fluctuating. Recent ER visit provided a short course of antibiotics. 1. Possible urinary tract inflammation (suspected interstitial cystitis). 2. Acute weakness, especially in the legs. 3. Unstable vital signs, particularly concerning low blood pressure. Septic Shock 4. Elevated blood glucose levels suggesting poor glycemic control. 5. Risk of potential bladder or prostate conditions, considering patient history and slightly elevated prostate level. 6. General suspicion of systemic infection due to low blood pressure and leg weakness. 07/20: Urine cultures are showing young colonies ,awaiting blood cultures. 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 Appears large heterogeneous correlated with PSA recommended small urinary bladder diverticula. 07/21: brain CT and MRI negative for stroke. and TTE w/ grade 1 diastolic dysfunction 07/24; patient is growing yeast in urine , awaiting scan for kidneys 07/25: Nuclear medicine scan shows patient has a untilization distribution of left kidney of 25% and 75% on the right 07/26: patient has high blood sugars, mildly distened abdomen recommend HB supply. Plan: - completed ceftriaxone for 10 days will stop at this time - patient is clear for discharge on primary care - recommend KB _ recommend blood sugar control by primary team - recommend blood cultures -urology recommends outpatient cystoscopy as well as stem placement and go home with a valenzuela bag in place , Agree with this plan - Continue IV mycofungen to be completed 08/07 and can continue as outpatient - defer to primary team management for patients weakness and nutritional deficiencies - recommend urology consult for bilateral hydronephrosis as well as for prostatomegaly , pyuria and brown urine. --> urology recommending NM scan - patient follow up outpatient with infectoius disease recommend physical therapy -recommend nutrition consult -prepare for discharge - follow up on blood cultures 1. Continue ceftriaxone , recommend adding micafungin to regimen until fungal ball has been rolled out ( 2 weeks via minline ) 2. Initiate intravenous fluids to manage low BP and address potential dehydration. 4. Monitor kidney function due to elevated creatinine. 6. Monitor glucose levels closely and adjust antidiabetic medications as needed. 7. Rule out bladder and prostate cancer through relevant investigations. 8. Ensure follow-up on blood thinner management given the weak condition. Plan discussed with: Other Dietary Evaluation Review Comments: Diet for CKD, non HD, Renal Specific-50g protein restriction with 2gNa, 3K, low phos, if on HD, Renal Standard 2gNa 3K, low phos. Expected Outcomes/Goals: Avoid uremic syndrome. BRYCE THOMAS MD Jul 28, 2024 22:35
[2024-07-29 05:00] VITALS: BP 122/61; PULSE 91; RESP 17; TEMP 98.9; O2SAT 93
[2024-07-29 08:00] VITALS: PULSE 87
[2024-07-29 09:00] VITALS: BP 111/55; PULSE 87; RESP 16; TEMP 98.7; O2SAT 96
[2024-07-29 11:58] VITALS: BP 111/55; PULSE 87; RESP 16; TEMP 98.7; O2SAT 96
[2024-07-29 13:00] VITALS: BP 114/56; PULSE 84; RESP 16; TEMP 98.6; O2SAT 95
--- NOTE | 2024-07-29 17:15 | DVHPN2 ---
Progress Note - Dictate Date Seen: Jul 29, 2024 Medical Necessity Reason Pt with a Central, PICC or Fol: Yes The following are medically ne: Valenzuela Catheter Reason for valenzuela catheter: Bladder Retention/Obstruc, Strict I&O Subjective Bs coming under fair control Revsed Humalog scale and Added inj. Lantus Renal scan-25 % of L renal, 60% of R renal seen by urology- out pt stent placement 2d echo-EF 60% urine C S pos for yeast case d/w dr. Pan Beth Continued on IV Micafungin Noted mid line fell out rec replacement of mid line vital signs Vital Sign Date Time Temp Pulse Resp B/P (MAP) Pulse Ox O2 Delivery O2 Flow Rate FiO2 07/29/24 13:00 98.6 84 16 114/56 (75) 95 98.6 07/29/24 08:00 Room Air* 0 21 Total Intake and Output 07/28/24 07/28/24 07/29/24 15:00 23:00 07:00 Intake Total 437 ml 720 ml 800 ml Output Total 900 ml 650 ml Balance 437 ml -180 ml 150 ml medications Current Medications Medications Dose Ordered Sig/Rudy Route Start Time Stop Time Status Last Admin Dose Admin Nitroglycerin 0.4 mg Q5MINP PRN SL 07/19/24 19:00 Morphine Sulfate 2 mg Q30M PRN IV 07/19/24 19:00 Digoxin 0.125 mg DAILY PO 07/20/24 10:00 07/29/24 09:25 0.125 MG Finasteride 5 mg DAILY PO 07/20/24 10:00 07/29/24 09:25 5 MG Glipizide 5 mg BID PO 07/19/24 22:00 07/29/24 09:25 5 MG Pantoprazole Sodium 40 mg DAILY PO 07/20/24 10:00 07/29/24 09:25 40 MG Tamsulosin HCl 0.4 mg QPM PO 07/22/24 18:00 07/29/24 17:05 0.4 MG Insulin Human Lispro HS SC 07/22/24 13:15 07/28/24 22:00 9 UNITS Enteral Nutritional Formula 240 ml TIDWM PO 07/22/24 18:00 07/29/24 12:59 240 ML Megestrol Acetate 40 mg AC PO 07/22/24 17:00 07/29/24 17:05 40 MG Micafungin Sodium 100 mg/Sodium Chloride 100 ml @ 100 mls/hr Q24H IV 07/24/24 15:00 08/07/24 14:59 Cancel Micafungin Sodium 100 mg/Sodium Chloride 100 ml @ 100 mls/hr DAILY IV 07/25/24 10:00 07/29/24 09:20 100 MLS/HR Insulin Human Lispro AC SC 07/24/24 21:45 07/29/24 17:07 12 UNITS Sodium Chloride 1,000 ml @ 40 mls/hr Q24H IV 07/24/24 21:45 07/28/24 22:05 40 MLS/HR Insulin Glargine 7 units DAILY@[facility] [place] 07/26/24 11:30 07/29/24 17:07 7 UNITS laboratory and microbiology Laboratory Tests 07/25/24 18:06 07/25/24 05:25 Test 07/25/24 18:06 Range/Units Serum Glucose 396 #H 74-106 mg/dL Assessment/Plan Problems(with codes): (1) UTI (urinary tract infection) (2) Bradycardia (3) Altered level of consciousness (4) Dehydration (5) Hydronephrosis (6) Sepsis (7) Failure to thrive (8) Wuyta-ll-wuvmbsb kidney injury 1. revise sliding scale 3. await renal scan Dietary Evaluation Review Comments: Diet for CKD, non HD, Renal Specific-50g protein restriction with 2gNa, 3K, low phos, if on HD, Renal Standard 2gNa 3K, low phos. Expected Outcomes/Goals: Avoid uremic syndrome. EMY BETH MD Jul 29, 2024 17:15
[2024-07-29] MEDS ORDERED: LOSA-533 PO (17:30)
[2024-07-29] MEDS ORDERED: FURO40TA4 PO (17:30)
[2024-07-29] MEDS ORDERED: TAMS0.4C39 PO (17:30)
[2024-07-29] MEDS ORDERED: CARV12.544 PO (17:30)
[2024-07-29 17:56] VITALS: BP 138/45; PULSE 73; RESP 18; TEMP 98.6; O2SAT 92
--- NOTE | 2024-07-29 23:10 | DVHPN2 ---
Consult Progress Note Date Seen: Jul 29, 2024 Subjective Patient reports: Feels better (doing well , has antibiotics set up and ready to go home, fuley catheter has been removed ) Objective vital signs Vital Sign Date Time Temp Pulse Resp B/P (MAP) Pulse Ox O2 Delivery O2 Flow Rate FiO2 07/29/24 17:56 98.6 73 18 138/45 (76) 92 98.6 07/29/24 08:00 Room Air* 0 21 Total Intake and Output 07/28/24 07/28/24 07/29/24 15:00 23:00 07:00 Intake Total 437 ml 720 ml 800 ml Output Total 900 ml 650 ml Balance 437 ml -180 ml 150 ml medications Current Medications Medications Dose Ordered Sig/Rudy Route Start Time Stop Time Status Last Admin Dose Admin Micafungin Sodium 100 mg/Sodium Chloride 100 ml @ 100 mls/hr Q24H IV 07/24/24 15:00 08/07/24 14:59 Cancel Physical Exam: General: NAD Neck: Supple. No masses. HEENT: PERRL. Normal lids and conjunctiva. Moist mucous membranes. Oropharynx without lesions, exudates, or excessive erythema. Normal appearance of the external aspects of the nose and ears. Heart: Regular rhythm, normal rate. No murmur. No lower extremity edema. Lungs: Normal respiratory effort. Clear to auscultation bilaterally. No wheezes. No crackles. Abdomen: Soft. Non-tender. distended. No masses or abdominal hernia. hypoactive bowel sounds Msk: No digital cyanosis. Normal strength and tone in all 4 limbs. Skin: Warm and dry, no rashes. Neuro: Alert. No facial droop or slurred speech. Extra-ocular movements intact. Sensation intact to soft touch in all 4 limbs. Psych: Appropriate mood. Full affect. Oriented to person, place, time, and situation. laboratory and microbiology Laboratory Tests 07/25/24 18:06 07/25/24 05:25 Test 07/25/24 18:06 Range/Units Serum Glucose 396 #H 74-106 mg/dL Problem List/Assessment/Plan Problems(with codes): (1) Hypotension (2) Septic shock (3) Eabiu-hl-suwltzb kidney injury (4) Acute exacerbation of CHF (congestive heart failure) (5) Altered level of consciousness (6) UTI (urinary tract infection) (7) Dehydration Problem List/Assessment/Plan (1) UTI (urinary tract infection) (2) Bradycardia (3) Altered level of consciousness (4) Dehydration (5) Hydronephrosis (6) Sepsis (7) Failure to thrive (8) Dsrqe-aj-wteedpm kidney injury (9) Acute exacerbation of CHF (congestive heart failure) (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 He feels very weak, especially in his legs, and has difficulty walking. No current antibiotics. Blood pressure and glucose levels have been fluctuating. Recent ER visit provided a short course of antibiotics. 1. Possible urinary tract inflammation (suspected interstitial cystitis). 2. Acute weakness, especially in the legs. 3. Unstable vital signs, particularly concerning low blood pressure. Septic Shock 4. Elevated blood glucose levels suggesting poor glycemic control. 5. Risk of potential bladder or prostate conditions, considering patient history and slightly elevated prostate level. 6. General suspicion of systemic infection due to low blood pressure and leg weakness. 07/20: Urine cultures are showing young colonies ,awaiting blood cultures. 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 Appears large heterogeneous correlated with PSA recommended small urinary bladder diverticula. 07/21: brain CT and MRI negative for stroke. and TTE w/ grade 1 diastolic dysfunction 07/24; patient is growing yeast in urine , awaiting scan for kidneys 07/25: Nuclear medicine scan shows patient has a untilization distribution of left kidney of 25% and 75% on the right 07/26: patient has high blood sugars, mildly distened abdomen recommend HB supply. Plan: - completed ceftriaxone for 10 days will stop at this time - patient is clear for discharge on primary care - recommend KB _ recommend blood sugar control by primary team - recommend blood cultures -urology recommends outpatient cystoscopy as well as stem placement and go home with a valenzuela bag in place , Agree with this plan - Continue IV mycofungen to be completed 08/07 and can continue as outpatient - defer to primary team management for patients weakness and nutritional deficiencies - recommend urology consult for bilateral hydronephrosis as well as for prostatomegaly , pyuria and brown urine. --> urology recommending NM scan - patient follow up outpatient with infectoius disease recommend physical therapy -recommend nutrition consult -prepare for discharge - follow up on blood cultures 1. Continue ceftriaxone , recommend adding micafungin to regimen until fungal ball has been rolled out ( 2 weeks via minline ) 2. Initiate intravenous fluids to manage low BP and address potential dehydration. 4. Monitor kidney function due to elevated creatinine. 6. Monitor glucose levels closely and adjust antidiabetic medications as needed. 7. Rule out bladder and prostate cancer through relevant investigations. 8. Ensure follow-up on blood thinner management given the weak condition. Plan discussed with: Other Dietary Evaluation Review Comments: Diet for CKD, non HD, Renal Specific-50g protein restriction with 2gNa, 3K, low phos, if on HD, Renal Standard 2gNa 3K, low phos. Expected Outcomes/Goals: Avoid uremic syndrome. BRYCE THOMAS MD Jul 29, 2024 23:10
== END 2024-07-29 18:32 | disposition home or self-care (01) | DRG 871 ==
LOC: ER 12:31 → TELE 18:53 → TELE-CENTR 07-20 10:10 → TELE-EAST 07-22 16:50
PROVIDERS: ADMIT Internal Medicine Infectious Disease; ATTEND Internal Medicine Infectious Disease
PROC: 05HA33Z Insertion of Infusion Device into Left Brachial Vein, Percutaneous Approach (ICD-10-PCS; principal; 2024-07-24)
PROC: B54NZZA Ultrasonography of Left Upper Extremity Veins, Guidance (ICD-10-PCS; 2024-07-24)
PROC: 05H933Z Insertion of Infusion Device into Right Brachial Vein, Percutaneous Approach (ICD-10-PCS; 2024-07-27)
PROC: B54MZZA Ultrasonography of Right Upper Extremity Veins, Guidance (ICD-10-PCS; 2024-07-27)
DX: A41.9 Sepsis, unspecified organism (principal); I50.33 Acute on chronic diastolic (congestive) heart failure; R65.21 Severe sepsis with septic shock; N17.0 Acute kidney failure with tubular necrosis; N13.6 Pyonephrosis; I13.0 Hypertensive heart and chronic kidney disease with heart failure and stage 1 through stage 4 chronic kidney disease, or unspecified chronic kidney disease; R62.7 Adult failure to thrive; N40.0 Benign prostatic hyperplasia without lower urinary tract symptoms; I48.91 Unspecified atrial fibrillation; E86.0 Dehydration; E11.22 Type 2 diabetes mellitus with diabetic chronic kidney disease; N18.9 Chronic kidney disease, unspecified; Z79.899 Other long term (current) drug therapy; Z79.84 Long term (current) use of oral hypoglycemic drugs; Z86.73 Personal history of transient ischemic attack (TIA), and cerebral infarction without residual deficits; Z68.21 Body mass index [BMI] 21.0-21.9, adult
CPT/HCPCS: 36415; 70450; 70551; 71045; 74018; 74176; 76775; 78707; 80048; 80053; 80061; 80162; 81001; 82962; 83036; 83735; 83880; 84100; 84484; 85007; 85025; 85027; 87040; 87086; 87088; 93005; 93306; 97110; 97116; 97163; 97530; 99291; G0378; J1450; J1815; J2248; J2543

== ENCOUNTER 2024-10-06 12:37 | Emergency (ER) | payer OTHER ==
[~2024-10-06] VITALS: Ht 167.6 cm; Wt 56.5 kg
[~2024-10-06 12:37] MED LIST changes: -AMLO1TAB22 PO; +INSU100I27 SC; +INSU1INJ19 SC; -NALO4SPR3 NAS; -TRAM50TA2 PO; +WARF-110 PO
[2024-10-06 13:05] VITALS: BP 133/82; PULSE 103; RESP 18; O2SAT 97
== END 2024-10-06 15:25 | disposition left against medical advice (07) ==
LOC: ER 12:37
DX: Z46.6 Encounter for fitting and adjustment of urinary device (principal); Z53.21 Procedure and treatment not carried out due to patient leaving prior to being seen by health care provider